=== PATIENT | female | born 1945 | race Caucasian/White ===

== ENCOUNTER 2017-12-25 18:27 | Inpatient (IN) | payer MEDICARE, OTHER ==
[~2017-12-25] VITALS: Ht 152.4 cm; Wt 46.9 kg
[~2017-12-25 18:27] MED LIST: BENICAR20 MG PO; CALCIUM 500 +1 EACH PO; DESLORATADINE5 MG PO; GENTAMICIN TOP; HYDROCHLOROTHIA25 MG PO; KENALOG-1010 MG/1 ML; NABUMETONE500 MG PO; NEXIUM PO; PREDNISONE20 MG PO; SIMVASTATIN20 MG PO; TYLENOL EXTRA500 MG PO
[2017-12-25] MEDS ORDERED: ONDANSETRON HCL INJ 2 MG/ML VIAL IV STA (19:37)
[2017-12-25] MEDS ORDERED: SODIUM CHLORIDE 0.9% 1000ML 1,000 ML IV SCH (19:45)
--- NOTE | 2017-12-25 20:05 | Diagnostic Imaging Report ---
Portable chest x-ray CPT code 69339 INDICATION: C. Difficile infection COMPARISON: Chest x-ray 08/01/2015 FINDINGS: Frontal view of the chest obtained at 1949 hours. The cardiac silhouette is normal. Aortic ectasia and calcifications of the aortic arch are stable. No hilar lymphadenopathy. The pulmonary vascular markings are normal. The lungs demonstrate no mass or infiltrate. The costophrenic angles are sharp. There is no pneumothorax. The osseous structures are intact. No focal osseous lesions. IMPRESSION: No acute cardiopulmonary process. Signed by: Dr. Melissa Montoya MD on 12/25/2017 8:01 PM
[2017-12-25 20:18] LABS: BASOPHILS # (AUTO) 0.1 (0.0-0.1); BASOPHILS % 0.3 % (0.0-1.0); HEMATOCRIT 33.9 % (34.2-44.1); HEMOGLOBIN 11.8 g/dL (12.0-16.0); LYMPHOCYTES # (AUTO) 1.8 (1.0-3.2); LYMPHOCYTES % 5.8 % (18.0-39.1); MEAN CORPUSCULAR HGB CONC 34.8 g/dL (31-35); MEAN CORPUSCULAR VOLUME 97.7 fL (81-99); MONOCYTES # (AUTO) 1.7 (0.2-0.8); MONOCYTES % 5.3 % (4.4-11.3); NEUTROPHILS # (AUTO) 27.2 (2.1-6.9); NEUTROPHILS % 87.6 % (38.7-80.0); PLATELET COUNT 480 x10e3/uL (140-360); RED BLOOD COUNT 3.47 x10e6/uL (3.6-5.1); RED CELL DISTRIBUTION WIDTH 12.4 % (11.7-14.4)
[2017-12-25] MEDS: VANCOMYCIN 250MG/5ML ORAL SOLN PO SCH (20:23)
[2017-12-25] MEDS: METRONIDAZOLE 500MG/NS 100ML 100 ML IV SCH (20:23)
[2017-12-25 20:38] LABS: ALBUMIN 3.4 g/dL (3.5-5.0); ALBUMIN/GLOBULIN RATIO 0.9 (0.8-2.0); ANION GAP 18.3 mmol/L (8-16); CALCIUM 9.7 mg/dL (8.4-10.2); MAGNESIUM 1.2 MG/DL (1.3-2.1); POTASSIUM 3.3 mmol/L (3.5-5.1)
[2017-12-25] MEDS ORDERED: SODIUM CHLORIDE 0.9% 1000ML 1,000 ML IV ONE (20:45)
[2017-12-25] MEDS ORDERED: MAGNESIUM SULF 1GRAM/DEXTROSE 100 ML IV ONE (21:00)
[2017-12-25 21:06] LABS: LYMPHOCYTES % (MANUAL) 5 % (19-48); MONOCYTES % (MANUAL) 4 % (3.4-9.0); NEUTROPHILS % (MANUAL) 91 % (40-74)
[2017-12-25 21:07] LABS: HYPOCHROMASIA SLIGHT; PLATELET ESTIMATE SLIGHTLY INCREASED; PLATELET MORPHOLOGY COMMENT NORMAL; RBC MORPHOLOGY COMMENT NORMAL
[2017-12-25] MEDS ORDERED: ONDANSETRON HCL INJ 2 MG/ML VIAL IV PRN (21:15)
--- OUTSIDE RECORDS SUMMARY | 2017-12-25 21:27 | XMS REPORT ---
Author Author [facility] Address Unknown Phone Unavailable Care Team Providers Care Pegger Dobby Looms Name Role Phone NIKI GELLER Unavailable Unavailable Problems This patient has no known problems. Allergies, Adverse Reactions, Alerts This patient has no known allergies or adverse reactions. Medications This patient has no known medications. Results Test Description Test Time Test Comments Text Results Atomic Results Result Comments CHEST SINGLE (PORTABLE) [place] [address] Patient Name: TEDDY JEFFERSON MR #: [id number] : 1945 Age/Sex: 72/F Req #: [id number] Adm Physician: Ordered by: MAZIN FUENTES MD Report #: [id number] Location: ER Room/Bed: ___ Procedure: [id number] DX/CHEST SINGLE (PORTABLE) Exam Date: 12/25/17 Exam Time: 1939 REPORT STATUS: Signed Portable chest x-ray CPT code 01949 INDICATION: C. Difficile infection COMPARISON: Chest x-ray 08/01/2015 FINDINGS: Frontal view of the chest obtained at 1949 hours. The cardiac silhouette is normal. Aortic ectasia and calcifications of the aortic arch are stable. No hilar lymphadenopathy. The pulmonary vascular markings are normal. The lungs demonstrate no mass or infiltrate. The costophrenic angles are sharp. There is no pneumothorax. The osseous structures are intact. No focal osseous lesions. IMPRESSION: No acute cardiopulmonary process. Signed by : Dr. Areli Montoya MD on 12/25/2017 8:01 PM Dictated By: ARELI MONTOYA MD 00 Transcribed By: NAT on 12/25/172000 COPY TO: MAZIN FUENTES MD
[2017-12-25 22:00] VITALS: BP 129/66
[2017-12-26] VITALS (7 sets, daily range): BP systolic 105–142; BP diastolic 52–84
[2017-12-26] MEDS: VANCOMYCIN 250MG/5ML ORAL SOLN PO SCH ×4 (00:05→17:56)
[2017-12-26] MEDS: METRONIDAZOLE 500MG/NS 100ML 100 ML IV SCH ×4 (00:05→17:56)
[2017-12-26] MEDS: KCL 20MEQ/.9 SOD CHL 1,000 ML IV SCH ×4 (00:05→21:44)
[2017-12-26] MEDS ORDERED: ACETAMINOPHEN 325 MG TAB PO PRN (06:00)
[2017-12-26 06:30] LABS: BILIRUBIN,URINE 1+ (NEGATIVE); CLARITY,URINE CLOUDY (CLEAR); COLOR,URINE AMBER (YELLOW); KETONES,URINE 1+ (NEGATIVE); LEUKOCYTE ESTERASE ,URINE NEGATIVE (NEGATIVE); NITRITE,URINE NEGATIVE (NEGATIVE); PROTEIN,URINE DIPSTICK TRACE (NEGATIVE); URINE UROBILINOGEN 0.2 mg/dL (0.2 - 1)
[2017-12-26 06:32] LABS: BACTERIA,URINE FEW /HPF; EPITHELIAL CELLS,URINE MODERATE /LPF; RBC,URINE 0-5 /HPF (0-5); WBC,URINE (MAN) 0-5 /HPF (0-5)
[2017-12-26 07:15] LABS: BASOPHILS # (AUTO) 0.1 (0.0-0.1); BASOPHILS % 0.3 % (0.0-1.0); HEMATOCRIT 30.8 % (34.2-44.1); HEMOGLOBIN 10.8 g/dL (12.0-16.0); LYMPHOCYTES # (AUTO) 1.6 (1.0-3.2); LYMPHOCYTES % 7.5 % (18.0-39.1); MEAN CORPUSCULAR HEMOGLOBIN 34.8 pg (28-32); MEAN CORPUSCULAR HGB CONC 35.1 g/dL (31-35); MEAN CORPUSCULAR VOLUME 99.4 fL (81-99); MONOCYTES # (AUTO) 1.3 (0.2-0.8); MONOCYTES % 6.2 % (4.4-11.3); NEUTROPHILS # (AUTO) 17.7 (2.1-6.9); NEUTROPHILS % 85.2 % (38.7-80.0); PLATELET COUNT 356 x10e3/uL (140-360); RED CELL DISTRIBUTION WIDTH 12.4 % (11.7-14.4)
[2017-12-26 08:02] LABS: ALBUMIN 2.7 g/dL (3.5-5.0); ALBUMIN/GLOBULIN RATIO 0.8 (0.8-2.0); ALKALINE PHOSPHATASE 75 IU/L (40-150); ANION GAP 12.6 mmol/L (8-16); BLOOD UREA NITROGEN 20 mg/dL (7-26); BUN/CREATININE RATIO 31 (6-25); CALCIUM 8.7 mg/dL (8.4-10.2); CARBON DIOXIDE 23 mmol/L (22-29); CHLORIDE 101 mmol/L (98-107); CREATININE, SERUM 0.64 mg/dL (0.57-1.11); EST GLOMERULAR FILTRATION RATE > 60 ML/MIN (60-); GLUCOSE 82 mg/dL (74-118); MAGNESIUM 1.4 MG/DL (1.3-2.1); SODIUM 134 mmol/L (136-145)
[2017-12-26 08:18] LABS: ALANINE AMINOTRANSFERASE < 6 IU/L (0-55)
[2017-12-26 08:19] LABS: POTASSIUM 2.6 mmol/L (3.5-5.1)
[2017-12-26] MEDS ORDERED: POTASSIUM CHLORIDE 20MEQ/100ML 200 ML IV ONE (08:30)
[2017-12-26] MEDS: POTASSIUM CHLORIDE 20MEQ/100ML 100 ML IV SCH ×2 (09:00→11:00)
[2017-12-26] MEDS ORDERED: SODIUM CHLORIDE 0.9% 1000ML 1,000 ML IV ONE (11:30)
[2017-12-26] MEDS: ACETAMINOPHEN 325 MG TAB PO SCH ×2 (13:48→21:44)
[2017-12-27] MEDS: VANCOMYCIN 250MG/5ML ORAL SOLN PO SCH ×5 (00:47→23:55)
[2017-12-27] MEDS: METRONIDAZOLE 500MG/NS 100ML 100 ML IV SCH ×5 (00:47→23:55)
--- NOTE | 2017-12-27 01:26 | Consultation ---
DATE OF CONSULTATION: December 26, 2017 REASON FOR CONSULTATION: C. diff. HISTORY OF PRESENT ILLNESS: This patient who apparently was recently in the hospital, was discharged home. She was doing well. She is coming with nausea and vomiting, abdominal discomfort as well as diarrhea. The patient was admitted. The patient came to the emergency room and stools for C. diff were sent, came back positive. Infectious disease was consulted. Patient started on oral vancomycin and metronidazole, and she is telling me she is feeling better now, her diarrhea has subsided. PAST MEDICAL HISTORY: This patient has history of hypertension, GERD, arthritis. PAST SURGICAL HISTORY: Appendectomy, cholecystectomy, hysterectomy. ALLERGIES: PENICILLIN AND SULFA DRUGS. SOCIAL HISTORY: There is no smoking, drug abuse, alcohol abuse. FAMILY HISTORY: Unremarkable. REVIEW OF SYSTEMS, FOURTEEN-POINT: HEENT: There is no headache, visual changes or hearing changes. GI: There is no nausea, currently no vomiting, no diarrhea, but when she first came she had nausea and vomiting and diarrhea. : Negative. There is no evidence of urinary frequency. SKIN: There is no rash. JOINTS: No swelling or erythema. CURRENT MEDICATION: List reviewed. LABORATORY DATA: Reviewed. Patient apparently had C. diff 3 weeks ago. PHYSICAL EXAMINATION: GENERAL: She is currently alert and oriented, does not seem to be in acute distress. VITALS: Stable, currently afebrile. HEENT: She does not appear icteric. NECK: Supple. CHEST: Clear. HEART: S1 and S2. No S3, S4, murmur. ABDOMEN: Soft. IMPRESSION: Recurrent Clostridium difficile colitis, seems to be getting better. Continue with vancomycin. Continue with metronidazole. Probably will treat her longer time at present time. Agree with intravenous fluid and supportive care. Further recommendations to follow. Thank you. Job#: [id number]
[2017-12-27 01:35] VITALS: BP 113/40
[2017-12-27] MEDS: KCL 20MEQ/.9 SOD CHL 1,000 ML IV SCH ×3 (06:11→21:58)
[2017-12-27] MEDS: ACETAMINOPHEN 325 MG TAB PO SCH ×3 (06:12→21:58)
[2017-12-27 06:26] VITALS: BP 141/20
[2017-12-27 07:47] LABS: BASOPHILS # (AUTO) 0.1 (0.0-0.1); BASOPHILS % 0.6 % (0.0-1.0); EOSINOPHILS # (AUTO) 0.1 (0.0-0.4); EOSINOPHILS % 0.4 % (0.0-6.0); HEMATOCRIT 32.3 % (34.2-44.1); HEMOGLOBIN 10.9 g/dL (12.0-16.0); LYMPHOCYTES # (AUTO) 1.7 (1.0-3.2); LYMPHOCYTES % 11.5 % (18.0-39.1); MEAN CORPUSCULAR HEMOGLOBIN 33.9 pg (28-32); MEAN CORPUSCULAR HGB CONC 33.7 g/dL (31-35); MEAN CORPUSCULAR VOLUME 100.3 fL (81-99); MONOCYTES # (AUTO) 0.8 (0.2-0.8); MONOCYTES % 5.7 % (4.4-11.3); NEUTROPHILS # (AUTO) 11.7 (2.1-6.9); PLATELET COUNT 351 x10e3/uL (140-360); RED BLOOD COUNT 3.22 x10e6/uL (3.6-5.1); RED CELL DISTRIBUTION WIDTH 12.5 % (11.7-14.4)
[2017-12-27 08:00] VITALS: BP 141/20
[2017-12-27 08:30] LABS: ANION GAP 9.4 mmol/L (8-16); BLOOD UREA NITROGEN 8 mg/dL (7-26); BUN/CREATININE RATIO 16 (6-25); CALCIUM 8.6 mg/dL (8.4-10.2); CARBON DIOXIDE 22 mmol/L (22-29); CHLORIDE 108 mmol/L (98-107); CREATININE, SERUM 0.51 mg/dL (0.57-1.11); EST GLOMERULAR FILTRATION RATE > 60 ML/MIN (60-); GLUCOSE 79 mg/dL (74-118); POTASSIUM 3.4 mmol/L (3.5-5.1); SODIUM 136 mmol/L (136-145)
[2017-12-27 12:00] VITALS: BP 170/75
[2017-12-27 16:00] VITALS: BP 149/67
[2017-12-27 20:28] VITALS: BP 177/71
[2017-12-27] MEDS: OLMESARTAN 20 MG TAB PO SCH (22:55)
[2017-12-28 00:54] VITALS: BP 165/83
[2017-12-28] MEDS: METRONIDAZOLE 500MG/NS 100ML 100 ML IV SCH ×4 (05:43→23:06)
[2017-12-28] MEDS: KCL 20MEQ/.9 SOD CHL 1,000 ML IV SCH ×3 (05:43→21:15)
[2017-12-28] MEDS: VANCOMYCIN 250MG/5ML ORAL SOLN PO SCH ×4 (05:43→23:06)
[2017-12-28] MEDS: ACETAMINOPHEN 325 MG TAB PO SCH ×3 (05:43→22:00)
[2017-12-28 06:06] VITALS: BP 158/77
[2017-12-28] MEDS ORDERED: DIPHENOXYLATE/ATROPINE TAB PO ONE (06:30)
[2017-12-28] MEDS ORDERED: NYSTATIN 100,000 UNITS/GM CRM 30GM TUBE TOP SCH (06:30)
[2017-12-28] MEDS ORDERED: DIPHENOXYLATE/ATROPINE TAB PO PRN (06:30)
[2017-12-28 07:22] LABS: BASOPHILS # (AUTO) 0.1 (0.0-0.1); BASOPHILS % 0.6 % (0.0-1.0); EOSINOPHILS # (AUTO) 0.1 (0.0-0.4); EOSINOPHILS % 0.5 % (0.0-6.0); HEMATOCRIT 32.6 % (34.2-44.1); HEMOGLOBIN 10.9 g/dL (12.0-16.0); LYMPHOCYTES # (AUTO) 1.6 (1.0-3.2); LYMPHOCYTES % 12.9 % (18.0-39.1); MEAN CORPUSCULAR HEMOGLOBIN 33.6 pg (28-32); MEAN CORPUSCULAR HGB CONC 33.4 g/dL (31-35); MEAN CORPUSCULAR VOLUME 100.6 fL (81-99); MONOCYTES # (AUTO) 0.8 (0.2-0.8); MONOCYTES % 6.5 % (4.4-11.3); NEUTROPHILS # (AUTO) 9.9 (2.1-6.9); NEUTROPHILS % 78.1 % (38.7-80.0); PLATELET COUNT 369 x10e3/uL (140-360); RED BLOOD COUNT 3.24 x10e6/uL (3.6-5.1); RED CELL DISTRIBUTION WIDTH 12.5 % (11.7-14.4)
[2017-12-28 08:00] VITALS: BP 169/79
[2017-12-28 08:00] LABS: ANION GAP 9.6 mmol/L (8-16); BLOOD UREA NITROGEN < 5 mg/dL (7-26); CALCIUM 8.4 mg/dL (8.4-10.2); CARBON DIOXIDE 23 mmol/L (22-29); CHLORIDE 107 mmol/L (98-107); EST GLOMERULAR FILTRATION RATE > 60 ML/MIN (60-); GLUCOSE 81 mg/dL (74-118); POTASSIUM 3.6 mmol/L (3.5-5.1); SODIUM 136 mmol/L (136-145)
[2017-12-28 08:02] LABS: BUN/CREATININE RATIO 10 (6-25)
[2017-12-28] MEDS: OLMESARTAN 20 MG TAB PO SCH (09:21)
[2017-12-28 09:38] VITALS: BP 169/79
[2017-12-28] MEDS: PANTOPRAZOLE SOD 40 MG TABEC PO SCH (15:00)
[2017-12-28 16:00] VITALS: BP 174/76
[2017-12-28 20:24] VITALS: BP 158/73
[2017-12-29] VITALS (7 sets, daily range): BP systolic 131–183; BP diastolic 60–94
[2017-12-29] MEDS: ACETAMINOPHEN 325 MG TAB PO SCH ×3 (05:34→22:36)
[2017-12-29] MEDS: METRONIDAZOLE 500MG/NS 100ML 100 ML IV SCH ×4 (05:34→22:37)
[2017-12-29] MEDS: VANCOMYCIN 250MG/5ML ORAL SOLN PO SCH ×3 (05:35→17:00)
[2017-12-29 06:13] LABS: BASOPHILS # (AUTO) 0.1 (0.0-0.1); BASOPHILS % 0.6 % (0.0-1.0); EOSINOPHILS # (AUTO) 0.1 (0.0-0.4); EOSINOPHILS % 0.7 % (0.0-6.0); HEMATOCRIT 31.3 % (34.2-44.1); HEMOGLOBIN 10.4 g/dL (12.0-16.0); LYMPHOCYTES # (AUTO) 2.3 (1.0-3.2); LYMPHOCYTES % 23.2 % (18.0-39.1); MEAN CORPUSCULAR HEMOGLOBIN 33.3 pg (28-32); MEAN CORPUSCULAR HGB CONC 33.2 g/dL (31-35); MEAN CORPUSCULAR VOLUME 100.3 fL (81-99); MONOCYTES # (AUTO) 0.9 (0.2-0.8); MONOCYTES % 8.8 % (4.4-11.3); NEUTROPHILS # (AUTO) 6.6 (2.1-6.9); NEUTROPHILS % 65.1 % (38.7-80.0); PLATELET COUNT 354 x10e3/uL (140-360); RED BLOOD COUNT 3.12 x10e6/uL (3.6-5.1); RED CELL DISTRIBUTION WIDTH 12.7 % (11.7-14.4)
[2017-12-29 06:36] LABS: ALBUMIN 2.5 g/dL (3.5-5.0); ALBUMIN/GLOBULIN RATIO 0.9 (0.8-2.0); ALKALINE PHOSPHATASE 70 IU/L (40-150); ANION GAP 9.7 mmol/L (8-16); BLOOD UREA NITROGEN 5 mg/dL (7-26); BUN/CREATININE RATIO 10 (6-25); CARBON DIOXIDE 25 mmol/L (22-29); CHLORIDE 109 mmol/L (98-107); EST GLOMERULAR FILTRATION RATE > 60 ML/MIN (60-); GLUCOSE 86 mg/dL (74-118); POTASSIUM 3.7 mmol/L (3.5-5.1); SODIUM 140 mmol/L (136-145)
[2017-12-29 07:02] LABS: ALANINE AMINOTRANSFERASE < 6 IU/L (0-55)
[2017-12-29] MEDS ORDERED: MAGNESIUM SULFATE 2GM/50ML 50 ML IV ONE ×2 (08:30→14:00)
[2017-12-29] MEDS: METOPROLOL TARTRATE 25 MG TAB PO SCH ×2 (09:09→16:29)
[2017-12-29] MEDS: PANTOPRAZOLE SOD 40 MG TABEC PO SCH (09:09)
[2017-12-29] MEDS: KCL 20MEQ/.9 SOD CHL 1,000 ML IV SCH ×3 (09:09→22:37)
[2017-12-29] MEDS: OLMESARTAN 20 MG TAB PO SCH (09:09)
[2017-12-30] VITALS (9 sets, daily range): BP systolic 138–169; BP diastolic 63–76
[2017-12-30] MEDS: VANCOMYCIN 250MG/5ML ORAL SOLN PO SCH ×5 (00:14→23:20)
[2017-12-30] MEDS: KCL 20MEQ/.9 SOD CHL 1,000 ML IV SCH ×3 (05:15→21:00)
[2017-12-30] MEDS: ACETAMINOPHEN 325 MG TAB PO SCH ×3 (06:02→23:20)
[2017-12-30] MEDS: METRONIDAZOLE 500MG/NS 100ML 100 ML IV SCH ×5 (06:02→23:20)
[2017-12-30 06:55] LABS: BASOPHILS % 0.4 % (0.0-1.0); EOSINOPHILS # (AUTO) 0.1 (0.0-0.4); EOSINOPHILS % 1.4 % (0.0-6.0); HEMATOCRIT 31.8 % (34.2-44.1); HEMOGLOBIN 10.6 g/dL (12.0-16.0); LYMPHOCYTES % 19.5 % (18.0-39.1); MEAN CORPUSCULAR HEMOGLOBIN 33.9 pg (28-32); MEAN CORPUSCULAR HGB CONC 33.3 g/dL (31-35); MEAN CORPUSCULAR VOLUME 101.6 fL (81-99); MONOCYTES # (AUTO) 0.9 (0.2-0.8); MONOCYTES % 8.6 % (4.4-11.3); NEUTROPHILS # (AUTO) 7.1 (2.1-6.9); NEUTROPHILS % 69.1 % (38.7-80.0); PLATELET COUNT 384 x10e3/uL (140-360); RED BLOOD COUNT 3.13 x10e6/uL (3.6-5.1); RED CELL DISTRIBUTION WIDTH 12.9 % (11.7-14.4)
[2017-12-30] MEDS: PANTOPRAZOLE SOD 40 MG TABEC PO SCH (07:30)
[2017-12-30 07:32] LABS: ALANINE AMINOTRANSFERASE 6 IU/L (0-55); ALBUMIN 2.7 g/dL (3.5-5.0); ALBUMIN/GLOBULIN RATIO 0.9 (0.8-2.0); ALKALINE PHOSPHATASE 70 IU/L (40-150); ANION GAP 10.5 mmol/L (8-16); BLOOD UREA NITROGEN 6 mg/dL (7-26); BUN/CREATININE RATIO 12 (6-25); CALCIUM 8.3 mg/dL (8.4-10.2); CARBON DIOXIDE 28 mmol/L (22-29); CHLORIDE 105 mmol/L (98-107); CREATININE, SERUM 0.52 mg/dL (0.57-1.11); EST GLOMERULAR FILTRATION RATE > 60 ML/MIN (60-); GLUCOSE 83 mg/dL (74-118); POTASSIUM 3.5 mmol/L (3.5-5.1); SODIUM 140 mmol/L (136-145)
[2017-12-30] MEDS: METOPROLOL TARTRATE 25 MG TAB PO SCH ×2 (08:53→17:12)
[2017-12-30] MEDS: LACTOBACILLUS ACIDOPHILUS CAPSULE PO SCH (08:53)
[2017-12-30] MEDS: OLMESARTAN 20 MG TAB PO SCH (08:53)
[2017-12-31] VITALS (8 sets, daily range): BP systolic 119–186; BP diastolic 66–79
[2017-12-31] MEDS ORDERED: MAGNESIUM SULFATE 2GM/50ML 50 ML IV ONE (05:00)
[2017-12-31] MEDS: METRONIDAZOLE 500MG/NS 100ML 100 ML IV SCH ×4 (06:00→23:50)
[2017-12-31] MEDS: VANCOMYCIN 250MG/5ML ORAL SOLN PO SCH ×4 (06:00→23:50)
[2017-12-31] MEDS: ACETAMINOPHEN 325 MG TAB PO SCH ×3 (06:00→21:54)
[2017-12-31 06:20] LABS: BASOPHILS # (AUTO) 0.1 (0.0-0.1); BASOPHILS % 0.6 % (0.0-1.0); EOSINOPHILS # (AUTO) 0.2 (0.0-0.4); EOSINOPHILS % 1.6 % (0.0-6.0); HEMATOCRIT 28.9 % (34.2-44.1); HEMOGLOBIN 9.7 g/dL (12.0-16.0); LYMPHOCYTES # (AUTO) 2.3 (1.0-3.2); LYMPHOCYTES % 22.1 % (18.0-39.1); MEAN CORPUSCULAR HEMOGLOBIN 33.8 pg (28-32); MEAN CORPUSCULAR HGB CONC 33.6 g/dL (31-35); MEAN CORPUSCULAR VOLUME 100.7 fL (81-99); MONOCYTES # (AUTO) 0.9 (0.2-0.8); NEUTROPHILS # (AUTO) 6.8 (2.1-6.9); NEUTROPHILS % 65.9 % (38.7-80.0); PLATELET COUNT 309 x10e3/uL (140-360); RED BLOOD COUNT 2.87 x10e6/uL (3.6-5.1); RED CELL DISTRIBUTION WIDTH 12.9 % (11.7-14.4)
[2017-12-31 06:48] LABS: ALBUMIN 2.6 g/dL (3.5-5.0); ALBUMIN/GLOBULIN RATIO 1.1 (0.8-2.0); ALKALINE PHOSPHATASE 64 IU/L (40-150); ANION GAP 9.8 mmol/L (8-16); BLOOD UREA NITROGEN 5 mg/dL (7-26); BUN/CREATININE RATIO 11 (6-25); CALCIUM 8.4 mg/dL (8.4-10.2); CARBON DIOXIDE 28 mmol/L (22-29); CHLORIDE 107 mmol/L (98-107); CREATININE, SERUM 0.47 mg/dL (0.57-1.11); EST GLOMERULAR FILTRATION RATE > 60 ML/MIN (60-); GLUCOSE 86 mg/dL (74-118); POTASSIUM 3.8 mmol/L (3.5-5.1); SODIUM 141 mmol/L (136-145)
[2017-12-31 06:49] LABS: ALANINE AMINOTRANSFERASE < 6 IU/L (0-55)
[2017-12-31] MEDS: PANTOPRAZOLE SOD 40 MG TABEC PO SCH (07:39)
[2017-12-31] MEDS: LACTOBACILLUS ACIDOPHILUS CAPSULE PO SCH (08:36)
[2017-12-31] MEDS: OLMESARTAN 20 MG TAB PO SCH (08:36)
[2017-12-31] MEDS: METOPROLOL TARTRATE 25 MG TAB PO SCH ×2 (08:36→17:25)
[2017-12-31] MEDS: KCL 20MEQ/.9 SOD CHL 1,000 ML IV SCH ×2 (13:15→21:54)
[2018-01-01 00:35] VITALS: BP 157/75
[2018-01-01] MEDS ORDERED: MAGNESIUM SULFATE 2GM/50ML 50 ML IV ONE (05:00)
[2018-01-01] MEDS: METRONIDAZOLE 500MG/NS 100ML 100 ML IV SCH (05:52)
[2018-01-01] MEDS: VANCOMYCIN 250MG/5ML ORAL SOLN PO SCH (05:52)
[2018-01-01] MEDS: ACETAMINOPHEN 325 MG TAB PO SCH (05:52)
[2018-01-01 06:08] VITALS: BP 167/68
[2018-01-01 06:30] LABS: ANION GAP 11.8 mmol/L (8-16); BLOOD UREA NITROGEN < 5 mg/dL (7-26); CALCIUM 8.8 mg/dL (8.4-10.2); CARBON DIOXIDE 28 mmol/L (22-29); CHLORIDE 103 mmol/L (98-107); CREATININE, SERUM 0.49 mg/dL (0.57-1.11); EST GLOMERULAR FILTRATION RATE > 60 ML/MIN (60-); GLUCOSE 91 mg/dL (74-118); POTASSIUM 3.8 mmol/L (3.5-5.1); SODIUM 139 mmol/L (136-145)
[2018-01-01 06:34] LABS: BUN/CREATININE RATIO 10 (6-25)
[2018-01-01] MEDS: PANTOPRAZOLE SOD 40 MG TABEC PO SCH (08:54)
[2018-01-01] MEDS ORDERED: LORATADINE 10 MG TAB PO SCH (09:00)
[2018-01-01] MEDS: LACTOBACILLUS ACIDOPHILUS CAPSULE PO SCH (09:07)
[2018-01-01] MEDS: OLMESARTAN 20 MG TAB PO SCH (09:07)
[2018-01-01] MEDS: METOPROLOL TARTRATE 25 MG TAB PO SCH (09:07)
[2018-01-01 09:40] VITALS: BP 163/71
== END 2018-01-01 11:15 | disposition home or self-care (01) | DRG 872 ==
LOC: ER 18:42 → ERHOLD 21:02 → MED/SURG2 21:44
PROVIDERS: ADMIT Internal Medicine; ATTEND Internal Medicine
DX: A41.4 Sepsis due to anaerobes (principal); D64.9 Anemia, unspecified; E86.0 Dehydration; A04.71 Enterocolitis due to Clostridium difficile, recurrent; K21.9 Gastro-esophageal reflux disease without esophagitis; I10 Essential (primary) hypertension; E87.6 Hypokalemia; D72.829 Elevated white blood cell count, unspecified; M19.90 Unspecified osteoarthritis, unspecified site; R53.81 Other malaise
CPT/HCPCS: 36415; 71045; 80048; 80053; 81001; 82150; 83690; 83735; 85025; 87493; 93005; 97139; 99285; J2405; J3475; J3480; J7030

== ENCOUNTER 2019-02-07 10:51 | Inpatient (IN) | payer MEDICARE, OTHER ==
[~2019-02-07] VITALS: Ht 153 cm; Wt 50.6 kg
[2019-02-07] MEDS ORDERED: SODIUM CHLORIDE 0.9% 1000ML 1,000 ML IV STA (11:37)
[2019-02-07 12:05] LABS: BASOPHILS # (AUTO) 0.1 (0.0-0.1); BASOPHILS % 0.3 % (0.0-1.0); EOSINOPHILS % 0.2 % (0.0-6.0); HEMATOCRIT 33.6 % (34.2-44.1); HEMOGLOBIN 11.6 g/dL (12.0-16.0); LYMPHOCYTES # (AUTO) 1.7 (1.0-3.2); LYMPHOCYTES % 10.6 % (18.0-39.1); MEAN CORPUSCULAR HEMOGLOBIN 32.9 pg (28-32); MEAN CORPUSCULAR HGB CONC 34.5 g/dL (31-35); MEAN CORPUSCULAR VOLUME 95.2 fL (81-99); MONOCYTES # (AUTO) 1.1 (0.2-0.8); MONOCYTES % 6.7 % (4.4-11.3); NEUTROPHILS # (AUTO) 13.4 (2.1-6.9); NEUTROPHILS % 81.7 % (38.7-80.0); PLATELET COUNT 532 x10e3/uL (140-360); RED BLOOD COUNT 3.53 x10e6/uL (3.6-5.1); RED CELL DISTRIBUTION WIDTH 13.1 % (11.7-14.4)
--- NOTE | 2019-02-07 12:08 | NUR ---
PER MD STRAIGHT CATH PT; PT STRAIGHT CATH'D WITH NO ADVERSE REACTIONS PT URINE OUTPUT APPROX 50 CC
[2019-02-07 12:14] LABS: ALANINE AMINOTRANSFERASE 7 IU/L (0-55); ALBUMIN 3.3 g/dL (3.5-5.0); ALBUMIN/GLOBULIN RATIO 0.8 (0.8-2.0); ALKALINE PHOSPHATASE 94 IU/L (40-150); ANION GAP 16.6 mmol/L (8-16); BLOOD UREA NITROGEN 25 mg/dL (7-26); BUN/CREATININE RATIO 33 (6-25); CALCIUM 9.9 mg/dL (8.4-10.2); CARBON DIOXIDE 25 mmol/L (22-29); CHLORIDE 89 mmol/L (98-107); CREATININE, SERUM 0.76 mg/dL (0.57-1.11); EST GLOMERULAR FILTRATION RATE > 60 ML/MIN (60-); GLUCOSE 102 mg/dL (74-118); POTASSIUM 3.6 mmol/L (3.5-5.1); SODIUM 127 mmol/L (136-145)
[2019-02-07 12:17] LABS: INR 0.88; PROTHROMBIN TIME 12.4 seconds (11.9-14.5)
[2019-02-07 12:18] LABS: PARTIAL THROMBOPLASTIN TIME 38.7 seconds (23.8-35.5)
[2019-02-07 12:24] LABS: CLARITY,URINE CLEAR (CLEAR); COLOR,URINE YELLOW (YELLOW)
[2019-02-07 12:25] LABS: BILIRUBIN,URINE NEGATIVE (NEGATIVE); KETONES,URINE NEGATIVE (NEGATIVE); LEUKOCYTE ESTERASE ,URINE NEGATIVE (NEGATIVE); NITRITE,URINE NEGATIVE (NEGATIVE); PROTEIN,URINE DIPSTICK NEGATIVE (NEGATIVE); URINE UROBILINOGEN 0.2 mg/dL (0.2 - 1)
--- NOTE | 2019-02-07 12:28 | Diagnostic Imaging Report ---
EXAMINATION: CHEST SINGLE (PORTABLE) INDICATION: Pre-op. COMPARISON: Chest radiograph 12/25/2018. FINDINGS: TUBES and LINES: None. LUNGS: Lungs are well inflated. There is no evidence of pneumonia or pulmonary edema. PLEURA: No pleural effusion or pneumothorax. Likely right-sided skinfold. HEART AND MEDIASTINUM: The cardiomediastinal silhouette is unremarkable. There are atherosclerotic calcifications within the aorta. BONES AND SOFT TISSUES: No acute osseous abnormality. UPPER ABDOMEN: No free air under the diaphragm. IMPRESSION: No acute radiographic abnormality. Signed by: Dr. Gris Haider MD on 02/07/2019 12:24 PM
[2019-02-07 12:43] LABS: WBC,URINE (MAN) 0-5 /HPF (0-5)
[2019-02-07 12:44] LABS: BACTERIA,URINE MODERATE /HPF; EPITHELIAL CELLS,URINE FEW /LPF; TRANSITIONAL EPI CELLS,URINE RARE
[2019-02-07] MEDS ORDERED: ONDANSETRON HCL INJ 2MG/ML 2ML 2 MG/ML VIAL IV PRN (14:45)
[2019-02-07] MEDS ORDERED: MORPHINE SULFATE 2 MG/ML SYR 1ML IV PRN (14:45)
[2019-02-07] MEDS ORDERED: MORPHINE SULFATE INJ 4 MG/ML INJ 1ML IV PRN (15:15)
[2019-02-07] MEDS: VANCOMYCIN 1GM/NS 250 ML 250 ML IV SCH (15:26)
[2019-02-07] MEDS: SODIUM CHLORIDE 0.9% 1000ML 1,000 ML IV SCH (15:26)
--- NOTE | 2019-02-07 15:50 | NUR ---
This 73 y/o female arrived to the unit via stretcher for services of Dr. Palm and Autumn with comp of vascular ulcer to the left ankle area. The dressing eas lifted to observe the ulcer and noted quarter sized ulcer stage 3 and a stage 2 to the sacrum. The pt.'s son arrived and requested that the pt. not be given any pain med other than extra strength tylenol. The pt. has an iv in the right ac with vancomycin and iv fluids infusing. The skin is sallow in appearance.
[2019-02-07 16:29] VITALS: BP 162/88
[2019-02-07 16:30] VITALS: BP 162/88
[2019-02-07] MEDS: CEFEPIME 1GM/NS 0.9% 50 ML 50 ML IV SCH (16:30)
--- NOTE | 2019-02-07 16:30 | NUR ---
Dr. Palm notified of the pt's placement and new order received.
[2019-02-07] MEDS ORDERED: ACETAMINOPHEN 325 MG TAB PO PRN (16:45)
[2019-02-07] MEDS ORDERED: PIPER-TAZ 3.375 GM 50 ML IV SCH (19:00)
[2019-02-07 19:43] VITALS: BP 176/77
[2019-02-07] MEDS: NON-FORMULARY MEDICATION (Nabumetone 500 MG) PO SCH (21:00)
[2019-02-07] MEDS: SIMVASTATIN 20 MG TAB PO SCH (22:45)
[2019-02-07 23:50] VITALS: BP 192/84
[2019-02-08] VITALS (7 sets, daily range): BP systolic 131–200; BP diastolic 60–89
[2019-02-08] MEDS: ACETAMINOPHEN 325 MG TAB PO PRN ×3 (03:06→20:37)
[2019-02-08] MEDS: VANCOMYCIN 1GM/NS 250 ML 250 ML IV SCH ×2 (03:39→15:07)
--- NOTE | 2019-02-08 03:40 | NUR ---
IV to right AC no longer patent, IV removed, new 20G IV started to left forearm with good blood return
--- NOTE | 2019-02-08 04:41 | NUR ---
BP 195/89 notified
[2019-02-08] MEDS: CEFEPIME 1GM/NS 0.9% 50 ML 50 ML IV SCH ×2 (05:24→16:41)
[2019-02-08] MEDS: CLONIDINE HCL 0.1 MG TAB PO PRN ×2 (05:24→19:38)
[2019-02-08 05:33] LABS: BASOPHILS # (AUTO) 0.1 (0.0-0.1); BASOPHILS % 0.6 % (0.0-1.0); EOSINOPHILS # (AUTO) 0.1 (0.0-0.4); EOSINOPHILS % 0.9 % (0.0-6.0); HEMATOCRIT 30.3 % (34.2-44.1); HEMOGLOBIN 10.2 g/dL (12.0-16.0); LYMPHOCYTES # (AUTO) 2.1 (1.0-3.2); LYMPHOCYTES % 15.9 % (18.0-39.1); MEAN CORPUSCULAR HEMOGLOBIN 32.7 pg (28-32); MEAN CORPUSCULAR HGB CONC 33.7 g/dL (31-35); MEAN CORPUSCULAR VOLUME 97.1 fL (81-99); MONOCYTES # (AUTO) 0.9 (0.2-0.8); NEUTROPHILS # (AUTO) 10.1 (2.1-6.9); NEUTROPHILS % 74.9 % (38.7-80.0); PLATELET COUNT 419 x10e3/uL (140-360); RED BLOOD COUNT 3.12 x10e6/uL (3.6-5.1); RED CELL DISTRIBUTION WIDTH 13.1 % (11.7-14.4)
[2019-02-08 06:01] LABS: BLOOD UREA NITROGEN 14 mg/dL (7-26); BUN/CREATININE RATIO 26 (6-25); CALCIUM 8.6 mg/dL (8.4-10.2); CARBON DIOXIDE 27 mmol/L (22-29); CHLORIDE 97 mmol/L (98-107); CHOL/HDL RATIO 2.1 (3.0-3.6); CHOLESTEROL 103 MD/DL (0-199); CREATININE, SERUM 0.54 mg/dL (0.57-1.11); EST GLOMERULAR FILTRATION RATE > 60 ML/MIN (60-); GLUCOSE 85 mg/dL (74-118); HDL CHOLESTEROL 50 MG/DL (40-60); LDL CHOLESTEROL 34 MG/DL (60-130); SODIUM 131 mmol/L (136-145); TRIGLYCERIDES 97 MG/DL (0-149)
[2019-02-08] MEDS ORDERED: SODIUM CHLORIDE 0.9% 100 ML 100 ML ONE (06:41)
[2019-02-08] MEDS ORDERED: IOPAMIDOL 370 MG/ML 200 ML INFUS..BTL INJ ONE (06:41)
--- NOTE | 2019-02-08 08:43 | Diagnostic Imaging Report ---
EXAM: CTA OF THE ABDOMINAL AORTA, PELVIC ARTERIES AND BILATERAL LOWER EXTREMITIES INDICATION: PAD COMPARISON: None TECHNIQUE: Multi-detector CT technology was employed. CTA of the abdomen, pelvis and bilateral lower extremities was performed after the administration of IV contrast. Technique modification was accomplished to maintain the lowest dose possible to the patient. IV CONTRAST: 100 mL of Isovue-370 ORAL CONTRAST: None COMPLICATIONS: None RADIATION DOSE: Total DLP: 554.79 mGy*cm Estimated effective dose: (DLP x 0.015 x size factor) mSv CTDIvol has been reviewed. It is below the limits set by the Radiation Protocol Committee (RPC). For optimization of anatomic evaluation, multiplanar reconstruction, maximum intensity projections, and advanced 3-D off-line postprocessing were performed on a dedicated stand-alone workstation under the direct supervision of the interpreting physician. FINDINGS: Potential study limitations: None. VASCULAR WITH ADVANCED 3-D OFF-LINE POSTPROCESSING: The abdominal aorta reveals scattered atherosclerotic plaque. There is a focal soft plaque causing at least 40% stenosis of the infrarenal aorta. There is no acute aortic pathology . There is no evidence of aneurysm or dissection. The celiac axis and KHADAR are patent. The left gastric artery has a direct origin from the aorta. Short segment occlusion of the SMA is noted. Single renal arteries bilaterally. Pelvis vessels: There is a 50% stenosis of the right common iliac artery. Multiple focal stenosis of the left external iliac artery are noted. Right lower extremity: Right common femoral, profundus femoral and popliteal arteries are patent. Occlusion of the right SFA. Patent three-vessel runoff in the proximal calf. Dominant vessel at the foot is a posterior tibial artery. Left lower extremity: Right common femoral, profundus femoral and popliteal arteries are patent. Occlusion of the left SFA. Patent three-vessel runoff in the proximal calf. Dominant vessel of the foot is a posterior tibial artery. LOWER CHEST: No nodules or masses. ABDOMEN: The liver and pancreas appear normal. Gallbladder not visualized. Granulomas within the spleen. The adrenal glands appear normal. Both kidneys are normal in size, shape and density. Diffuse concentric wall thickening of the stomach is noted. There is no abnormal mass or hydronephrosis. PELVIS: There is no significant retroperitoneal adenopathy. The uterus and adnexal structures are absent. No free fluid or free air within the abdomen or pelvis. BONES: Degenerative changes of the spine. IMPRESSION: 1. Diffuse calcified atherosclerotic plaque throughout the vasculature. 2. Infrarenal abdominal aortic stenosis resulting from a soft plaque with a 40% stenosis. 3. Right common iliac artery stenosis. 4. Several short segment areas of stenosis in the left external iliac artery. 5. Both superficial femoral arteries are occluded. 6. Diffuse concentric gastric wall thickening-clinical correlation concerning any GI symptoms is suggested. Signed by: Dr. Manuel Kruger DO on 02/08/2019 8:40 AM
[2019-02-08] MEDS ORDERED: VITAMIN D3 PO SCH (09:00)
[2019-02-08] MEDS ORDERED: [UNRECOGNIZED DRUG - OTHER] PO SCH (09:00)
[2019-02-08] MEDS: NON-FORMULARY MEDICATION (Nabumetone 500 MG) PO SCH ×3 (09:00→20:25)
[2019-02-08] MEDS ORDERED: NON-FORMULARY MEDICATION ([Nexium] 40 MG) PO SCH (09:00)
[2019-02-08] MEDS ORDERED: CALCIUM CARBONATE PO SCH (09:00)
[2019-02-08] MEDS ORDERED: NON-FORMULARY MEDICATION (Desloratadine 5 MG) PO SCH (09:00)
[2019-02-08] MEDS: OYST-CAL-D 500MG TABLET PO SCH (09:43)
[2019-02-08] MEDS: HYDROCHLOROTHIAZIDE 25 MG TAB PO SCH (09:43)
[2019-02-08] MEDS: OLMESARTAN 20 MG TAB PO SCH (09:43)
[2019-02-08] MEDS: PANTOPRAZOLE SOD 40 MG TABEC PO SCH (09:43)
[2019-02-08] MEDS: LORATADINE 10 MG TAB PO SCH (09:43)
[2019-02-08] MEDS: SODIUM CHLORIDE 0.9% 1000ML 1,000 ML IV SCH (11:18)
--- NOTE | 2019-02-08 14:05 | NUR ---
Visit made by the Spiritual Care Department Pastoral Visitor, Mary Boo. PV provided pastoral presence, prayer, hospitality, and supportive listening. Pastoral Visitor informed pt/family of the scope of Obstetrics Tech Services and availability. JEWELL GREEN Paper Supervisor Spiritual Care Department O: [phone] Pager: [phone] ([phone] number calling from)
--- NOTE | 2019-02-08 16:21 | NUR ---
Nutrition Intervention Note RD Recommendation(s) for Physician: - Continue current diet - Recommend MVI with minerals once daily and 500 mg Vitamin C daily for skin integrity - Pt meets criteria for moderate protein calorie malnutrition Plan of Care: RD following, monitoring for tolerance and adequacy Nutrition reason for involvement: Nutrition Risk Trigger- stage II PU upon admit RD Assessment 02/08: 73 YOF admitted for severe PAD, seen today per admit with stage II PU at admit. Pt discussed during am rounds. Pt reports decreased appetite and intake due to "being in the hospital before and not being able to eat because of all the procedures". Pt denies N/V/C/D or difficulties chewing or swallowing. Pt reports UBW of 110# a month ago prior to hospitalizations, noted 6% wt loss in 1 month. Pt declined all supplements offered and states she's eating well now and does not need any, noted 90% intake of lunch tray. Will monitor and continue to follow. Principal Problems/Diagnoses: Severe PAD with LLE ulcers PMH: C-diff, HTN, GERD, cholecystectomy GI: LBM 02/08 Skin: sacral stage II PU Labs: 02/08 BMP WNL Meds: oscal D, protonix, abx, zocor, zofran Ht: 60 in Wt: 103 lb BMI: 19.9 kg/m2 IBW: 100 lb Malnutrition Evaluation (02/08/19) The patient meets criteria for MODERATE protein-calorie malnutrition. Energy intake: <75% of estimated energy requirements for 1 month Weight loss: >5% in 1 month (Acute) Fat loss: Mild Muscle loss: Mild Supporting Evidence: none Nutrition Prescription (Diet Order): cardiac Estimated Nutritional Needs: 7545-8363 calories/day (25-35 kcal/kg CBW) 47-70 g protein/day (1-1.5 g pro/kg CBW) Diet Adequacy: Not meeting calorie needs, Not meeting protein needs- improving Diet Education Needs Assessment: Diet education not indicated at this time. Nutrition Care Level: Mod Nutrition Diagnosis: Inadequate energy and protein intake related to current medical status, hospitalizations and procedures as reported by pt as evidenced by 6% wt loss in 1 month and not meeting needs. Goal: Patient will meet 75-100% of estimated needs by follow up Progress: N/A Interventions: Fat, mineral modified diet, Multivitamin/mineral supplement therapy, Collaboration with other providers Monitoring/Evaluation: Total energy intake, Total protein intake, Modified diet Signed: Kassy Bruno RD, JAVI, [facility]
--- NOTE | 2019-02-08 18:08 | NUR ---
WOUND CARE CONSULTATION- INITIAL EVALUATION Patient admitted with Severe PAD, LLE ISCHEMIC ULCERS. HX: tobacco use, PAD, PVD. LABS: WBC13.46 HGB10.2 HCT30.3 NEUT%74.9 GLU85 ALB3.3 WC Consulted for sacral area evaluation and BLE Ulcers. PATIENT VISIT: Ad Score [address] Sacral area presents with blanchable redness, no open ulcers. Denies pain/ discomfort to area. Patient able to turn self without assistance. Diapered, barrier creams being used. Staff reports redness visible but after 1 day area improved since admitted. Seems that area resolved. BLE presents with multiple dry eschar annular ulcerations, no distinct pattern. Left Lateral Malleolus- open ulceration full thickness with exposed periosteum. Area moist, draining scant serous fluid. Periwound well defined but irregular. Left Foot toes reddened. Pulses non palpable to Bilateral DP and AB. Patient awaiting evaluation for revascularization. Doppler studies to BLE performed today- awaiting results to chart. IMPRESSION: 1. Sacral- Blanchable Erythema 2. BLE Scattered Vascular Ulcers- Stable Eschar 3. Left Lateral Malleolus - Vascular Ulcer- Full Thickness RECOMMENDATION: ( Conservative Treatment) 1. Sacral- Blanchable Erythema - Wash area with mild soap and water then pat dry thoroughly - Apply Tolna Cream q12H and PRN soiling then cover with Allevyn Foam Sacrum Dressing 2. BLE Scabs/ Stable Eschar - Vascular Ulcers - Gutierrez with Betadine Daily 3. Left Lateral Ankle- Vascular Ulcer- Full Thickness - Cleanse wound with NS and 4x4 gauze. - Apply Iodosorb gel and Cover with staggered 4x4 gauze and wrap with light Kerlix Daily. 4. Moderate PUP protocol 5. Encourage turning and repositioning while in bed 6. Offload Heels with Pillows while in bed. 7. Alternating Pressure Air Mattress and set to patient current weight. Thank you for consulting with Wound Care. Addendum: 02/08/19 at 1820 by Magnus Medel RN Amended: Links added.
[2019-02-08] MEDS ORDERED: POTASSIUM CHLORIDE 20 MEQ TAB CR PO NR (18:22)
[2019-02-08] MEDS ORDERED: ZINC OXIDE / BALSAM PERU 30 GM TUBE TOP SCH (18:30)
[2019-02-08] MEDS: SIMVASTATIN 20 MG TAB PO SCH (20:25)
[2019-02-09] VITALS (9 sets, daily range): BP systolic 136–190; BP diastolic 64–81
[2019-02-09] MEDS: VANCOMYCIN 1GM/NS 250 ML 250 ML IV SCH ×2 (02:34→14:45)
[2019-02-09] MEDS: CLONIDINE HCL 0.1 MG TAB PO PRN ×3 (02:34→21:09)
[2019-02-09] MEDS: ACETAMINOPHEN 325 MG TAB PO PRN ×3 (02:34→13:25)
[2019-02-09] MEDS: CEFEPIME 1GM/NS 0.9% 50 ML 50 ML IV SCH ×2 (04:20→15:43)
--- NOTE | 2019-02-09 07:25 | NUR ---
PATIENT IN BED WITH HEAD OF BED ELEVATED WATCHING TV, NO RESPIRATORY DISTRESS OBSERVED. WOUND TO LEFT ANKLE WITH DRESSING INTACT , MULTIPLE SCABS TO LOWER EXTREMITIES. BED IN LOWER POSITION, CALL LIGHT AT REACH.
[2019-02-09] MEDS: PANTOPRAZOLE SOD 40 MG TABEC PO SCH (07:50)
[2019-02-09] MEDS: NON-FORMULARY MEDICATION (Nabumetone 500 MG) PO SCH ×3 (09:00→21:00)
[2019-02-09] MEDS: HYDROCHLOROTHIAZIDE 25 MG TAB PO SCH (09:23)
[2019-02-09] MEDS: OLMESARTAN 20 MG TAB PO SCH (09:23)
[2019-02-09] MEDS: LORATADINE 10 MG TAB PO SCH (09:23)
[2019-02-09] MEDS: OYST-CAL-D 500MG TABLET PO SCH (09:23)
[2019-02-09] MEDS: ZINC OXIDE / BALSAM PERU 30 GM TUBE TOP SCH ×2 (10:29→21:09)
[2019-02-09] MEDS: CADEXOMER IODINE 30 GM TUBE TOP SCH (10:29)
--- NOTE | 2019-02-09 11:30 | NUR ---
PATIENT ASSISTED WITH DIAPER CHANGE, HAD A BM. REPOSITIONED IN BED WITH CALL LIGHT AT REACH.
--- NOTE | 2019-02-09 14:43 | NUR ---
SPOKE WITH MD REGARDING ABNORMAL LAB RESULT, NO NEW ORDER RECEIVED.
--- NOTE | 2019-02-09 15:00 | NUR ---
PATIENT NOTED WITH B/P OF 172/79. PRN CLONIDINE GIVEN ORDERED. B/P RECHECKED WITH THE READING OF 158/82. WILL CLOSELY MONITOR.
[2019-02-09] MEDS ORDERED: ONDANSETRON HCL 4 MG ORAL DISINTEGRATING TAB PO PRN (16:45)
[2019-02-09] MEDS: HYDRALAZINE HCL 20 MG/ML VIAL IV PRN (17:39)
[2019-02-09] MEDS: SIMVASTATIN 20 MG TAB PO SCH (21:09)
[2019-02-10] VITALS (7 sets, daily range): BP systolic 159–183; BP diastolic 73–81
[2019-02-10] MEDS: VANCOMYCIN 1GM/NS 250 ML 250 ML IV SCH ×2 (03:00→15:30)
[2019-02-10] MEDS: CEFEPIME 1GM/NS 0.9% 50 ML 50 ML IV SCH ×2 (04:22→15:24)
[2019-02-10 07:03] LABS: BASOPHILS # (AUTO) 0.1 (0.0-0.1); BASOPHILS % 1.2 % (0.0-1.0); EOSINOPHILS # (AUTO) 0.2 (0.0-0.4); EOSINOPHILS % 1.6 % (0.0-6.0); HEMATOCRIT 32.6 % (34.2-44.1); HEMOGLOBIN 11.2 g/dL (12.0-16.0); LYMPHOCYTES # (AUTO) 1.7 (1.0-3.2); LYMPHOCYTES % 17.4 % (18.0-39.1); MEAN CORPUSCULAR HEMOGLOBIN 32.6 pg (28-32); MEAN CORPUSCULAR HGB CONC 34.4 g/dL (31-35); MEAN CORPUSCULAR VOLUME 94.8 fL (81-99); MONOCYTES % 9.8 % (4.4-11.3); NEUTROPHILS # (AUTO) 6.7 (2.1-6.9); NEUTROPHILS % 68.2 % (38.7-80.0); PLATELET COUNT 322 x10e3/uL (140-360); RED BLOOD COUNT 3.44 x10e6/uL (3.6-5.1); RED CELL DISTRIBUTION WIDTH 12.9 % (11.7-14.4)
[2019-02-10 07:24] LABS: ALANINE AMINOTRANSFERASE 6 IU/L (0-55); ALBUMIN 2.8 g/dL (3.5-5.0); ALBUMIN/GLOBULIN RATIO 0.9 (0.8-2.0); ALKALINE PHOSPHATASE 78 IU/L (40-150); ANION GAP 13.8 mmol/L (8-16); BLOOD UREA NITROGEN 7 mg/dL (7-26); BUN/CREATININE RATIO 14 (6-25); CALCIUM 9.1 mg/dL (8.4-10.2); CARBON DIOXIDE 24 mmol/L (22-29); CHLORIDE 94 mmol/L (98-107); CREATININE, SERUM 0.49 mg/dL (0.57-1.11); EST GLOMERULAR FILTRATION RATE > 60 ML/MIN (60-); GLUCOSE 98 mg/dL (74-118); POTASSIUM 3.8 mmol/L (3.5-5.1); SODIUM 128 mmol/L (136-145)
--- NOTE | 2019-02-10 07:25 | NUR ---
PATIENT SITTING UP IN BED TALKING ON THE PHONE, NO DISTRESS NOTED. DRESSING INTACT TO LEFT ANKLE. BED IN LOWER POSITION, CALL LIGHT AT REACH.
[2019-02-10] MEDS: PANTOPRAZOLE SOD 40 MG TABEC PO SCH (07:57)
[2019-02-10] MEDS: NON-FORMULARY MEDICATION (Nabumetone 500 MG) PO SCH ×3 (09:00→21:00)
[2019-02-10] MEDS: HYDROCHLOROTHIAZIDE 25 MG TAB PO SCH (09:20)
[2019-02-10] MEDS: LORATADINE 10 MG TAB PO SCH (09:20)
[2019-02-10] MEDS: OLMESARTAN 20 MG TAB PO SCH (09:20)
[2019-02-10] MEDS: OYST-CAL-D 500MG TABLET PO SCH (09:20)
[2019-02-10] MEDS: AMLODIPINE BESYLATE 5 MG TAB PO SCH (09:20)
[2019-02-10] MEDS: CADEXOMER IODINE 30 GM TUBE TOP SCH (09:20)
[2019-02-10] MEDS: ZINC OXIDE / BALSAM PERU 30 GM TUBE TOP SCH ×2 (10:26→22:23)
--- NOTE | 2019-02-10 11:37 | NUR ---
PATIENT ASSISTED WITH DIAPER CHANGE, HAD A BM. IV FLUID INFUSING ORDERED. BED IN LOWER POSITION, CALL LIGHT AT REACH.
--- NOTE | 2019-02-10 16:20 | NUR ---
DRESSING CHANGED TO LEFT ANKLE ORDERED. PATIENT ASSISTED WITH DIAPER CHANGE. IN BED WITH CALL LIGHT AT REACH.
--- NOTE | 2019-02-10 20:18 | NUR ---
RECEIVED PT IN BED AOX3 PATIENT IN BED . NO RESPIRATORY DISTRESS OBSERVED. WOUND TO LEFT ANKLE WITH DRESSING INTACT , MULTIPLE SCABS TO LOWER EXTREMITIES. CHANGED DIAPER , CALL LIGHT AT REACH.
--- NOTE | 2019-02-10 20:39 | NUR ---
RECEIVED PT IN BED AOX3 ..LEFT AC 20 G RUNNING NS AT 50CC/HR .PT HAS LEFT ANKLE WOUND AND SACRUM REDNESS .DENIES PAIN .CALL LIGHT WITH IN REACH .CONTINUE TO MONITOR
[2019-02-10] MEDS: SIMVASTATIN 20 MG TAB PO SCH (21:00)
[2019-02-11] VITALS (7 sets, daily range): BP systolic 159–192; BP diastolic 71–84
[2019-02-11] MEDS: SODIUM CHLORIDE 0.9% 1000ML 1,000 ML IV SCH ×2 (01:29→15:45)
[2019-02-11] MEDS: VANCOMYCIN 1GM/NS 250 ML 250 ML IV SCH ×2 (02:16→14:45)
[2019-02-11] MEDS: CEFEPIME 1GM/NS 0.9% 50 ML 50 ML IV SCH ×2 (04:24→15:45)
[2019-02-11] MEDS: CLONIDINE HCL 0.1 MG TAB PO PRN ×2 (04:27→17:06)
[2019-02-11] MEDS ORDERED: MAGNESIUM SULFATE 2GM/50ML 50 ML IV ONE (05:15)
--- NOTE | 2019-02-11 06:48 | NUR ---
PT RESTING AND PT URINATED Q3HRS .CALL LIGHT WITH IN REACH .CONTINUE TO MONITOR
--- NOTE | 2019-02-11 07:29 | NUR ---
BEDSIDE REPORT GIVEN TO THE ONCOMING NURSE.
[2019-02-11] MEDS: PANTOPRAZOLE SOD 40 MG TABEC PO SCH (07:30)
[2019-02-11] MEDS: NON-FORMULARY MEDICATION (Nabumetone 500 MG) PO SCH ×3 (09:00→20:41)
[2019-02-11] MEDS: LORATADINE 10 MG TAB PO SCH (09:44)
[2019-02-11] MEDS: OLMESARTAN 20 MG TAB PO SCH (09:44)
[2019-02-11] MEDS: OYST-CAL-D 500MG TABLET PO SCH (09:44)
[2019-02-11] MEDS: AMLODIPINE BESYLATE 5 MG TAB PO SCH (09:44)
[2019-02-11] MEDS: HYDROCHLOROTHIAZIDE 25 MG TAB PO SCH (09:44)
--- NOTE | 2019-02-11 11:54 | NUR ---
Patient alert, responsive, no resp distress and tolerated all meds, denies any pains and will monitor
--- NOTE | 2019-02-11 11:54 | NUR ---
Another call today again to Dr. Carreno's office regarding consult that has been due for 4 days
--- NOTE | 2019-02-11 15:43 | NUR ---
Reported Vanco trough level to attending and orders in place to continue Vancomycin.
[2019-02-11] MEDS: CADEXOMER IODINE 30 GM TUBE TOP SCH (16:11)
[2019-02-11] MEDS: ZINC OXIDE / BALSAM PERU 30 GM TUBE TOP SCH ×2 (16:11→21:57)
--- NOTE | 2019-02-11 16:12 | NUR ---
Dr. Carreno in to see patient and at this point, he states he will not be do anything much but possibly at a later time. Dressing change completed to left ankle ulcer and treatment applied.
--- NOTE | 2019-02-11 17:14 | NUR ---
Nutrition Intervention Note RD Recommendation(s) for Physician: - Continue current diet - Pt meets criteria for moderate protein calorie malnutrition Plan of Care: RD following, monitoring for tolerance and adequacy Nutrition reason for involvement: Follow up RD Assessment 02/11: Visited pt in the room. Pt reported good appetite with 100% lunch intake today. No GI complains noted. Tolerating current diet. No nutrition intervention needed at this time. Please consult if needed. 02/08: 73 YOF admitted for severe PAD, seen today per admit with stage II PU at admit. Pt discussed during am rounds. Pt reports decreased appetite and intake due to "being in the hospital before and not being able to eat because of all the procedures". Pt denies N/V/C/D or difficulties chewing or swallowing. Pt reports UBW of 110# a month ago prior to hospitalizations, noted 6% wt loss in 1 month. Pt declined all supplements offered and states she's eating well now and does not need any, noted 90% intake of lunch tray. Will monitor and continue to follow. Principal Problems/Diagnoses: Severe PAD with LLE ulcers PMH: C-diff, HTN, GERD, cholecystectomy GI: LBM 02/11 Skin: no pressure ulcer per wound care notes Labs: 02/11: Na 128 L, Creatinine 0.49 L 02/08 BMP WNL Meds: abx, NaCl, oscal D, HCTZ, protonix Ht: 60 in Wt: 103 lb; 111.56lb BMI: 19.9 kg/m2 IBW: 100 lb Malnutrition Evaluation (02/08/19) The patient meets criteria for MODERATE protein-calorie malnutrition. Energy intake: <75% of estimated energy requirements for 1 month Weight loss: >5% in 1 month (Acute) Fat loss: Mild Muscle loss: Mild Supporting Evidence: none Nutrition Prescription (Diet Order): cardiac Estimated Nutritional Needs: 8792-3523 calories/day (25-35 kcal/kg CBW) 47-70 g protein/day (1-1.5 g pro/kg CBW) Diet Adequacy: meeting calorie needs, meeting protein needs Diet Education Needs Assessment: Diet education not indicated at this time. Nutrition Care Level: low Nutrition Diagnosis: Inadequate energy and protein intake related to current medical status, hospitalizations and procedures as reported by pt as evidenced by 6% wt loss in 1 month and not meeting needs. Goal: Patient will meet 75-100% of estimated needs by follow up Progress: Goal met Interventions: Fat, mineral modified diet, Multivitamin/mineral supplement therapy, Collaboration with other providers Monitoring/Evaluation: Total energy intake, Total protein intake, Modified diet Signed: Saundra Padron MS, RD, LD
--- NOTE | 2019-02-11 19:15 | NUR ---
Patient visited in room during nursing rounds. Patient alert and oriented x3. Up with assist prn. On IVF (NS at 50ml/hr). left leg with couple of scabs and has wound on left ankle (lateral) covered with dressing (C/D/I). Call avina within reach. Will monitor closely.
[2019-02-11] MEDS: SIMVASTATIN 20 MG TAB PO SCH (20:41)
--- NOTE | 2019-02-11 22:00 | NUR ---
Patient given a bed bath. Patient tolerated bath well. Diaper and linen were changed. Pt had a bowel movement prior to diaper change.
[2019-02-12] VITALS (10 sets, daily range): BP systolic 122–200; BP diastolic 60–84
[2019-02-12] MEDS: VANCOMYCIN 1GM/NS 250 ML 250 ML IV SCH ×2 (02:31→14:45)
[2019-02-12] MEDS: CLONIDINE HCL 0.1 MG TAB PO PRN ×2 (03:22→19:51)
[2019-02-12] MEDS: CEFEPIME 1GM/NS 0.9% 50 ML 50 ML IV SCH ×2 (04:00→15:52)
--- NOTE | 2019-02-12 06:00 | NUR ---
Patient asleep at this time. Condition stable and pt appear comfortable. Call avina within reach.
[2019-02-12] MEDS: PANTOPRAZOLE SOD 40 MG TABEC PO SCH (07:30)
--- NOTE | 2019-02-12 07:35 | NUR ---
Received patient this morning, a/ox3, rounds completed and call light within reach, will monitor
[2019-02-12] MEDS: NON-FORMULARY MEDICATION (Nabumetone 500 MG) PO SCH ×3 (09:00→19:28)
[2019-02-12] MEDS: SODIUM CHLORIDE 0.9% 1000ML 1,000 ML IV SCH (09:00)
[2019-02-12] MEDS: OYST-CAL-D 500MG TABLET PO SCH (09:01)
[2019-02-12] MEDS: AMLODIPINE BESYLATE 5 MG TAB PO SCH (09:01)
[2019-02-12] MEDS: OLMESARTAN 20 MG TAB PO SCH (09:01)
[2019-02-12] MEDS: LORATADINE 10 MG TAB PO SCH (09:01)
[2019-02-12] MEDS: HYDROCHLOROTHIAZIDE 25 MG TAB PO SCH (09:01)
--- NOTE | 2019-02-12 15:44 | NUR ---
Patient alert and responsive, had soft formed BM and incontinence care provided, will monitor as call light within reach
[2019-02-12] MEDS: CADEXOMER IODINE 30 GM TUBE TOP SCH (15:51)
[2019-02-12] MEDS: ZINC OXIDE / BALSAM PERU 30 GM TUBE TOP SCH ×2 (15:51→22:00)
--- NOTE | 2019-02-12 19:30 | NUR ---
Patient visited in room during nursing rounds. Patient alert and oriented x3. Up with assist prn. On IVF (NS at 50ml/hr). Left leg with couple of scabs and has wound on left ankle (lateral) covered with dressing (C/D/I). Patient displays intermittent jerky movements. MD aware. Call avina within reach. Will monitor closely.
[2019-02-12] MEDS: SIMVASTATIN 20 MG TAB PO SCH (19:57)
[2019-02-12] MEDS: HYDRALAZINE HCL 20 MG/ML VIAL IV PRN (23:13)
[2019-02-13] VITALS (8 sets, daily range): BP systolic 133–179; BP diastolic 61–88
[2019-02-13] MEDS: CEFEPIME 1GM/NS 0.9% 50 ML 50 ML IV SCH ×2 (03:15→15:15)
[2019-02-13] MEDS: CLONIDINE HCL 0.1 MG TAB PO PRN (04:30)
[2019-02-13] MEDS: OLMESARTAN 20 MG TAB PO SCH (04:30)
[2019-02-13] MEDS: AMLODIPINE BESYLATE 5 MG TAB PO SCH (04:30)
[2019-02-13] MEDS: PANTOPRAZOLE SOD 40 MG TABEC PO SCH (07:30)
[2019-02-13] MEDS: VANCOMYCIN 1GM/NS 250 ML 250 ML IV SCH ×2 (08:00→20:55)
[2019-02-13] MEDS: OYST-CAL-D 500MG TABLET PO SCH (08:23)
[2019-02-13] MEDS: NON-FORMULARY MEDICATION (Nabumetone 500 MG) PO SCH ×3 (08:23→20:55)
[2019-02-13] MEDS: LORATADINE 10 MG TAB PO SCH (08:23)
[2019-02-13] MEDS: CADEXOMER IODINE 30 GM TUBE TOP SCH (08:23)
[2019-02-13] MEDS: HYDROCHLOROTHIAZIDE 25 MG TAB PO SCH (08:23)
--- NOTE | 2019-02-13 08:33 | NUR ---
Received patient this morning, a/ox3, VSS and tolerated all meds, in bed, denies any pains. Vanco trough reported to attending and to continue with vancomycin IV, will monitor.
[2019-02-13] MEDS: ZINC OXIDE / BALSAM PERU 30 GM TUBE TOP SCH ×2 (10:00→20:55)
[2019-02-13] MEDS: SODIUM CHLORIDE 0.9% 1000ML 1,000 ML IV SCH ×2 (16:29→20:56)
--- NOTE | 2019-02-13 19:08 | NUR ---
Rounds completed, patient stable and report given to on coming nurse. Bed in low locked position, call light within reach
--- NOTE | 2019-02-13 19:15 | NUR ---
Rounding done & report received. Patient is awake and sitting in bed, A&Ox4, RR even & unlabored, no distress noted. Patient denies any issues or needs at this time. Call light within reach, bed set to lowest position & siderails x2 raised.
[2019-02-13] MEDS: SIMVASTATIN 20 MG TAB PO SCH (20:55)
--- NOTE | 2019-02-13 22:12 | NUR ---
Wound dressing to left ankle done
[2019-02-14] VITALS: BP 154/65
[2019-02-14 04:00] VITALS: BP 185/79
[2019-02-14] MEDS: CEFEPIME 1GM/NS 0.9% 50 ML 50 ML IV SCH ×2 (04:05→15:38)
[2019-02-14] MEDS: CLONIDINE HCL 0.1 MG TAB PO PRN (04:21)
--- NOTE | 2019-02-14 07:08 | NUR ---
RECEIVED PATIENT RESTING IN BED. NO ACUTE DISTRESS NOTED. DENIES PAIN OR DISCOMFORT. CALL LIGHT WITHIN REACH. BED IN THE LOWEST POSITION.
[2019-02-14 07:30] LABS: BASOPHILS # (AUTO) 0.1 (0.0-0.1); BASOPHILS % 0.9 % (0.0-1.0); EOSINOPHILS # (AUTO) 0.3 (0.0-0.4); EOSINOPHILS % 2.6 % (0.0-6.0); HEMOGLOBIN 10.5 g/dL (12.0-16.0); LYMPHOCYTES # (AUTO) 1.8 (1.0-3.2); LYMPHOCYTES % 16.4 % (18.0-39.1); MEAN CORPUSCULAR HEMOGLOBIN 32.5 pg (28-32); MEAN CORPUSCULAR HGB CONC 33.9 g/dL (31-35); MONOCYTES # (AUTO) 0.9 (0.2-0.8); MONOCYTES % 8.6 % (4.4-11.3); NEUTROPHILS # (AUTO) 7.8 (2.1-6.9); NEUTROPHILS % 70.7 % (38.7-80.0); PLATELET COUNT 335 x10e3/uL (140-360); RED BLOOD COUNT 3.23 x10e6/uL (3.6-5.1); RED CELL DISTRIBUTION WIDTH 12.9 % (11.7-14.4)
[2019-02-14 07:42] VITALS: BP 163/73
[2019-02-14 07:54] LABS: ALANINE AMINOTRANSFERASE 11 IU/L (0-55); ALBUMIN 2.6 g/dL (3.5-5.0); ALBUMIN/GLOBULIN RATIO 0.8 (0.8-2.0); ALKALINE PHOSPHATASE 81 IU/L (40-150); ANION GAP 10.6 mmol/L (8-16); BLOOD UREA NITROGEN 11 mg/dL (7-26); BUN/CREATININE RATIO 24 (6-25); CALCIUM 9.3 mg/dL (8.4-10.2); CARBON DIOXIDE 32 mmol/L (22-29); CHLORIDE 94 mmol/L (98-107); CREATININE, SERUM 0.46 mg/dL (0.57-1.11); EST GLOMERULAR FILTRATION RATE > 60 ML/MIN (60-); GLUCOSE 98 mg/dL (74-118); POTASSIUM 4.6 mmol/L (3.5-5.1); SODIUM 132 mmol/L (136-145)
[2019-02-14] MEDS: NON-FORMULARY MEDICATION (Nabumetone 500 MG) PO SCH ×2 (08:08→15:00)
[2019-02-14] MEDS: PANTOPRAZOLE SOD 40 MG TABEC PO SCH (08:59)
[2019-02-14] MEDS ORDERED: AMLODIPINE BESYLATE 5 MG TAB PO SCH (09:00)
[2019-02-14] MEDS: OYST-CAL-D 500MG TABLET PO SCH (09:00)
[2019-02-14] MEDS: LORATADINE 10 MG TAB PO SCH (09:00)
[2019-02-14] MEDS: OLMESARTAN 20 MG TAB PO SCH (09:00)
[2019-02-14] MEDS: HYDROCHLOROTHIAZIDE 25 MG TAB PO SCH (09:00)
[2019-02-14] MEDS: VANCOMYCIN 1GM/NS 250 ML 250 ML IV SCH (09:00)
[2019-02-14] MEDS: ZINC OXIDE / BALSAM PERU 30 GM TUBE TOP SCH (09:07)
--- NOTE | 2019-02-14 09:20 | NUR ---
RECEIVED A CALL FROM MARITZA AT [facility] IN REGARDS TO PATIENT BEING TRANSFERRED TO THAT FACILITY. NO ORDERS ON FILE FOR PATIENT'S TRANSFER. PAGED DR. WATKINS AT THIS TIME TO ASK ABOUT TRANSFER ORDER.
[2019-02-14] MEDS: CADEXOMER IODINE 30 GM TUBE TOP SCH (10:00)
--- NOTE | 2019-02-14 10:19 | NUR ---
EDUCATED ABOUT IMM, SIGNED, FILED IN CHART, WITH COPY LEFT WITH FAMILY AT BEDSIDE.
[2019-02-14 11:32] VITALS: BP 159/71
--- NOTE | 2019-02-14 11:49 | NUR ---
CM FOLLOWED UP WITH TRANSFER INITIATION PER ORDER. CM SPOKE TO PATIENT AT BEDSIDE REGARDING TRANSFER FOR HIGHER LEVEL OF CARE. PATIENT AWARE OF TRANSFER AND REQUESTS [facility]. PATIENT GIVEN ALL HER CHOICES AND INFORMED THAT SHE HAS A CHOICE. SHE CHOOSES [facility]. CHOICE LETTER SIGNED AND PLACED IN CHART. CM CALLED AND SPOKE TO MARITZA AT THE [facility] TRANSFER CENTER. TRANSFER INITATED AND FACESHEET SENT TO TRANSFER CENTER REQUESTED. PENDING BED FOR TRANSFER [facility] [address] [place] [address] (P) [phone] (F)[phone] Addendum: 02/14/19 at 1159 by Elyssa Jimenez CM MOT INITIATED AND GIVEN TO WELT RANDER.
[2019-02-14 13:37] VITALS: BP 142/64
--- NOTE | 2019-02-14 15:13 | NUR ---
CALLED REPORT TO CAITLIN JORDAN AT [facility] AT THIS TIME.
--- NOTE | 2019-02-14 16:26 | NUR ---
RECEIVED DC ORDER FROM MD, PATIENT IS TO BE TRANSFERRED TO [facility]. PATIENT IS IN STABLE CONDITION. IV LINE TO LEFT FOREARM IS ASYMPTOMATIC AND INTACT, SALINE FLUSH. REPORT CALLED TO CAITLIN JORDAN @ [phone]. PATIENT'S SON RUPESH NOTIFIED. PATIENT BEING TRANSPORTED VIA EMS. ALL TRANSFER PAPERWORK GIVEN TO EMS PERSONNEL.
--- NOTE | 2019-02-15 05:37 | Discharge Summary ---
DISCHARGE DIAGNOSES: 1. Left leg peripheral arterial disease. 2. Left leg cellulitis. DISPOSITION: The patient was transferred to [facility] by Dr. Christoph Carreno for possible surgical intervention. HISTORY OF PRESENT ILLNESS AND HOSPITAL COURSE: The patient is a smoker, who presented with an ischemic left lower extremities where evaluations with CT angiogram with runoff as well as peripheral Dopplers with ABIs show significant peripheral arterial disease. She was placed on IV antibiotics for the cellulitis, which did improve and she was seen by Dr. Carreno, who felt like the patient could benefit from surgical intervention, so once transfer arrangements were made, the patient was able to be transferred to [facility] to Dr. Carreno for further evaluation and care. Please see hospital chart for full details. MD BRIE Kee/NINA /[id number]
== END 2019-02-14 16:26 | disposition short-term general hospital (02) | DRG 872 ==
LOC: ER 10:51 → ERHOLD 14:34 → MED/SURG3 15:48
PROVIDERS: ADMIT Internal Medicine; ATTEND Internal Medicine
DX: A41.9 Sepsis, unspecified organism (principal); E87.1 Hypo-osmolality and hyponatremia; L03.116 Cellulitis of left lower limb; E44.0 Moderate protein-calorie malnutrition; L97.328 Non-pressure chronic ulcer of left ankle with other specified severity; I70.243 Atherosclerosis of native arteries of left leg with ulceration of ankle; F17.210 Nicotine dependence, cigarettes, uncomplicated; I10 Essential (primary) hypertension; E78.5 Hyperlipidemia, unspecified; Z88.0 Allergy status to penicillin; Z88.2 Allergy status to sulfonamides; Z88.7 Allergy status to serum and vaccine; Z88.8 Allergy status to other drugs, medicaments and biological substances; Z91.048 Other nonmedicinal substance allergy status; Z68.21 Body mass index [BMI] 21.0-21.9, adult; J44.9 Chronic obstructive pulmonary disease, unspecified; K21.9 Gastro-esophageal reflux disease without esophagitis
CPT/HCPCS: 36415; 71045; 75635; 80048; 80053; 80061; 80202; 81001; 83735; 85025; 85610; 85730; 87086; 87493; 93005; 93925; 99284; J0360; J0692; J3370; J3475; J7030; Q9967

== ENCOUNTER → 2019-04-25 | Outpatient (CLI) | payer MEDICARE, OTHER ==
[~2019-04-25] MED LIST changes: +ASPIRIN EC81 MG PO; +ATORVASTATIN CA20 MG PO; +DICLOFENAC SODI75 MG PO; +DICYCLOMINE HCL20 MG PO; +IOPAMIDOL 370 MG/ML 200 ML INFUS..BTL INJ ONE; +OLMESARTAN-HCTZ PO; +SODIUM CHLORIDE 0.9% 50ML 50 ML ONE
[2019-04-25 10:37] LABS: BLOOD UREA NITROGEN 14 mg/dL (7-26); BUN/CREATININE RATIO 27 (6-25); CREATININE, SERUM 0.51 mg/dL (0.57-1.11); EST GLOMERULAR FILTRATION RATE > 60 ML/MIN (60-)
--- NOTE | 2019-04-25 11:41 | Diagnostic Imaging Report ---
EXAM: CT Pelvis WITH intravenous contrast INDICATION: Groin swelling, assess for pseudoaneurysm COMPARISON: None. TECHNIQUE: Pelvis were scanned utilizing a multidetector helical scanner from the iliac crest to the pubic symphysis following administration of IV contrast. Coronal and sagittal reformations were obtained. Routine protocol was performed. IV CONTRAST: 100cc Isovue 370. ORAL CONTRAST: None RADIATION DOSE: Total DLP: 169.5 mGy*cm COMPLICATIONS: None FINDINGS: LINES and TUBES: None. GI TRACT: Extensive sigmoid colonic diverticulosis without CT evidence of diverticulitis. No abnormal bowel wall thickening. No bowel obstruction. Status post appendectomy. PELVIC ORGANS/BLADDER: Status post hysterectomy. LYMPH NODES: No lymphadenopathy. VESSELS: Compared to the prior CTA of 02/08/2019, there has been interval aortobifemoral bypass surgery. The graft appears widely patent. There is wide patency of the left superficial femoral artery and deep femoral artery. On the right, the deep femoral artery is patent but there is no superficial femoral arterial opacification. No pseudoaneurysm. Extensive atherosclerotic calcifications of the nulato aorta and iliac branches. PERITONEUM / RETROPERITONEUM: No free air or fluid. BONES: No acute osseous injury. Diffuse osteopenia. Degenerative changes of the visualized lower lumbar spine. SOFT TISSUES: There is a 5.1 x 3.3 cm low-attenuation fluid collection at the anterior left groin just below the level of the femoral bifurcation, likely representing a seroma or lymphocele. There is diffuse muscle atrophy and subcutaneous soft tissue edema. IMPRESSION: Status post interval aortobifemoral bypass surgery with patent graft and patent flow to the superficial and deep femoral arteries on the left and to the deep femoral artery on the right with no right superficial femoral arterial flow. No groin pseudoaneurysm. 5.1 x 3.3 cm low attenuation fluid collection in the anterior left groin just below the level of the femoral bifurcation likely represents a postoperative seroma or lymphocele. Signed by: Chip Carrington MD on 04/25/2019 11:37 AM
== END ==
LOC: CT 09:26
PROVIDERS: ATTEND Thoracic Surgery (Cardiothoracic Vascular Surgery)
DX: R19.04 Left lower quadrant abdominal swelling, mass and lump (principal); K57.30 Diverticulosis of large intestine without perforation or abscess without bleeding; Z98.890 Other specified postprocedural states
CPT/HCPCS: 36415; 72193; 82565; 84520; Q9967

== ENCOUNTER 2019-05-19 19:16 | Inpatient (IN) | payer MEDICARE, OTHER ==
[~2019-05-19] VITALS: Ht 152.4 cm; Wt 50.4 kg
[~2019-05-19 19:16] MED LIST changes: -ASPIRIN EC81 MG PO; -ATORVASTATIN CA20 MG PO; -DICLOFENAC SODI75 MG PO; -DICYCLOMINE HCL20 MG PO; -IOPAMIDOL 370 MG/ML 200 ML INFUS..BTL INJ ONE; -OLMESARTAN-HCTZ PO; -SODIUM CHLORIDE 0.9% 50ML 50 ML ONE
--- OUTSIDE RECORDS SUMMARY | 2019-05-19 19:21 | XMS REPORT | Clinical Summary ---
Author Author [facility] Organization [facility] Address Unknown Phone Unavailable Care Team Providers Care Algorithm Design Engineer Name Role Phone Cornelio Palm MD PCP Allergies Comments Active Allergy Reactions Severity Noted Date Penicillins Rash Low 02/14/2019 faint Sulfa (Sulfonamide Other (See Low 02/14/2019 Antibiotics) Comments) fever Tetanus Vaccines And Rash Low 02/14/2019 Toxoid lightheadedness Tetracycline Rash Low 02/14/2019 Medications End Date Status Medication Sig Dispensed Refills Start Date Active pantoprazole (PROTONIX) Take 40 mg by 0 40 MG EC tablet mouth daily. Active amLODIPine (NORVASC) 10 Take 10 mg by 0 mg tablet mouth daily. 03/03/2019 Discontinued (Stop Taking at Discharge) hydroCHLOROthiazide Take 25 mg by 0 (HYDRODIURIL) 25 MG mouth daily. tablet 03/03/2019 Discontinued (Stop Taking at Discharge) cefepime 1 g IVPB in 50 Infuse 1 g 0 mL ([id number]) into a venous catheter every 12 (twelve) hours. 03/03/2019 Discontinued (Stop Taking at Discharge) olmesartan (BENICAR) 40 Take 40 mg by 0 MG tablet mouth daily. 03/03/2019 Discontinued (Stop Taking at Discharge) simvastatin (ZOCOR) 20 MG Take 20 mg by 0 tablet mouth nightly. 03/03/2019 Discontinued (Stop Taking at Discharge) nabumetone (RELAFEN) 500 Take 500 mg 0 MG tablet by mouth 3 (three) times a day. 03/03/2019 Discontinued (Stop Taking at Discharge) calcium carbonate 1250 MG Take 1 tablet 0 capsule by mouth daily. 03/03/2019 Discontinued (Stop Taking at Discharge) loratadine (CLARITIN) 10 Take 10 mg by 0 mg tablet mouth daily. 03/03/2019 Discontinued (Stop Taking at Discharge) cadexomer iodine Apply 1 0 (IODOSORB) 0.9 % gel application topically daily. 03/03/2019 Discontinued (Stop Taking at Discharge) zinc oxide 16 % ointment Apply 1 0 application topically every 12 (twelve) hours. 03/03/2019 Discontinued (Stop Taking at Discharge) vancomycin 1 gram/250 mL Infuse 1 g 0 solution into a venous catheter every 12 (twelve) hours. 03/03/2019 Discontinued (Stop Taking at Discharge) clonIDINE (CATAPRES) 0.1 Take 0.1 mg 0 MG tablet by mouth as needed for high blood pressure (sbp>170). 03/02/2019 Discontinued tetrabenazine (XENAZINE) Take 12.5 mg 30 tablet 0 12.5 MG tablet by mouth 9 daily for 1 week then twice daily for 3 weeks then increase to 25 mg twice daily thereafter 04/02/2019 acetaminophen (TYLENOL) Take 2 0 325 MG tablet tablets (650 9 mg total) by mouth every 6 (six) hours as needed for fever (GREATER than 100.4) for up to 30 days. 04/02/2019 arformoterol (BROVANA) 15 Take 2 mL (15 120 mL 0 mcg/2 mL solution for mcg total) by 9 nebulization nebulization 2 (two) times a day for 30 days. 04/02/2019 aspirin 81 mg chewable Chew 1 tablet 30 tablet 0 tablet (81 mg total) 9 daily for 30 days. 04/02/2019 atorvastatin (LIPITOR) 20 Take 1 tablet 30 tablet 0 MG tablet (20 mg total) 9 by mouth nightly for 30 days. Default OP ins 04/02/2019 B complex-vitamin C-folic Take 1 tablet 30 tablet 0 acid (FOLBEE PLUS 5 MG) 5 by mouth 9 mg tablet per tablet daily for 30 days. 04/02/2019 bisacodyl (DULCOLAX) 10 Insert 1 0 mg suppository suppository 9 (10 mg total) into the rectum daily as needed for constipation for up to 30 days. 04/02/2019 cholecalciferol, vitamin Take 1 tablet 30 tablet 0 D3, (VITAMIN D3) 2,000 (2,000 Units 9 unit tablet total) by mouth daily for 30 days. 04/02/2019 collagenase (SANTYL) Apply 0 ointment topically 9 daily for 30 days. 04/02/2019 enoxaparin (LOVENOX) 40 Inject 0.4 mL 12 mL 0 mg/0.4 mL syringe (40 mg total) 9 under the skin daily for 30 days. 04/02/2019 guaiFENesin (ROBITUSSIN) Take 20 mL 0 100 mg/5 mL syrup (400 mg 9 total) by mouth 3 (three) times a day for 30 days. 04/02/2019 ipratropium-albuterol Take 3 mL by 0 (DUO-NEB) 0.5-2.5 mg/3 mL nebulization 9 nebulizer every 4 (four) hours as needed for wheezing for up to 30 days. 04/02/2019 metoprolol tartrate Take 1 tablet 60 tablet 0 (LOPRESSOR) 25 mg tablet (25 mg total) 9 by mouth 2 (two) times a day for 30 days. 04/02/2019 nicotine (NICODERM CQ) 14 Place 1 patch 30 patch 0 mg/24 hr on the skin 9 daily for 30 days. 04/02/2019 ondansetron ODT Take 1 tablet 0 (ZOFRAN-ODT) 4 MG (4 mg total) 9 disintegrating tablet by mouth every 8 (eight) hours as needed for nausea or vomiting for up to 30 days. 04/02/2019 ramelteon (ROZEREM) 8 mg Take 1 tablet 30 tablet 0 tablet (8 mg total) 9 by mouth nightly for 30 days. 04/02/2019 valsartan (DIOVAN) 160 MG Take 1 tablet 30 tablet 0 tablet (160 mg 9 total) by mouth daily for 30 days. 04/02/2019 zinc oxide-cod liver oil Apply 0 (DESITIN) 40 % paste topically 2 9 (two) times a day for 30 days. Active Problems Problem Noted Date Post-op pain 02/19/2019 Acute postoperative pulmonary insufficiency 02/19/2019 PAD (peripheral artery disease) 02/14/2019 Encounters Care Team Description Date Type Specialty Katie Garcias RN 02/25/2019 Telephone General Internal Medicine Farrukh Scales 02/23/2019 Documentation General Internal Medicine Rhianna Dinero MD Karpowitz, [place] 02/18/2019 Anesthesia Cardiothoracic Surgery Event Christoph Carreno MD AORTO BIFEM BYPASS (14x7); ENDARTERECTOMY OF ABDOMINAL AORTA; LEFT FEM-POP (BELOW KNEE) BYPASS USING 6mm PROPANTEN; ENDARTERECTOMIES OF RIGHT VERIFIER OPERATOR, PFA, SFA, AND LEF VERIFIER OPERATOR, PFA, SFA; PERICARDIAL PATCH RECONSTRUCTION OF RIGHT AND LEFT FEMORAL ARTERIES 02/18/2019 Surgery Cardiothoracic Surgery Daniel Rahman MD Cv arteriograms peripheral [40588 (CPT)] 02/17/2019 Surgery Procedural Cardiology Aleksandar Robison MD PAD (peripheral artery disease) (HCC) (Primary Dx); Pulmonary emphysema, unspecified emphysema type (HCC) 02/14/2019 [facility] General Internal Medicine - Encounter 03/03/2019 N/A 02/14/2019 Intake Access after 05/18/2018 Family History Medical History Relation Name Comments Asthma Father [place]'s disease Sister [place]'s disease Sister Relation Name Status Comments Father Sister Sister Social History Date Tobacco Use Types Packs/Day Years Used Current Every Day Smoker 1 60 Smokeless Tobacco: Never Used Tobacco Cessation: Ready to Quit: Yes; Counseling Given: Yes Drinks/Week oz/Week Comments Alcohol Use Never Alcohol Habits Answer Date Recorded How often do you have a drink containing alcohol? Never 02/18/2019 How many drinks containing alcohol do you have on Not asked a typical day when you are drinking? How often do you have six or more drinks on one Not asked occasion? Sex Assigned at Date Recorded Not on file Industry Job Start Date Occupation Not on file Not on file Not on file Travel End Travel History Travel Start No recent travel history available. Last Filed Vital Signs Reading Time Taken Comments Vital Sign 146/67 03/03/2019 7:49 AM CDT Blood Pressure 81 03/03/2019 9:36 AM CDT Pulse 36.1 C (96.9 F) 03/03/2019 7:49 AM CDT Temperature 18 03/03/2019 9:36 AM CDT Respiratory Rate 95% 03/03/2019 9:12 AM CDT Oxygen Saturation - - Inhaled Oxygen Concentration 59.5 kg (131 lb 4 oz) 02/28/2019 6:23 AM CDT Weight 152.4 cm (5') 02/14/2019 10:47 PM CDT Height 25.63 02/14/2019 10:47 PM CDT Body Mass Index Plan of Treatment Health Maintenance Due Date Last Done Comments BREAST CANCER SCREENING 1993 COLONOSCOPY SCREENING 1993 SHINGLES VACCINES (#1) 1993 65+ PNEUMOCOCCAL VACCINE 2008 (1 of 2 - PCV13) INFLUENZA VACCINE 04/21/2019 Implants Device Identifier Shelf Expiration Date Model / Serial / Lot Implanted Type Area Manufactur er [id number] / / Clip Ligtng Weck Hemoclip Plus W/ Medical N/A: N/A TELEFLEX Tape Ti Med - [id number] Clips for MEDICAL Implanted: 02/18/2019 at [facility] Internal H[facility]PITAL (Quantity not on file) Use 03/28/2022 [id number] / [id number] / [id number] Graft Vasclr Propaten Thn-Wl Strtch Vascular N/A: N/A W L GORE Rmvbl Ringed [id number] 6mm - Graft [id number] - [id number] Implanted: Qty: 1 on 02/18/2019 by Christoph Carreno MD at [facility] 11/18/2023 [id number] / / [id number] [place] Perph Vasclr Ptfe 1.2x10cm Vascular N/A: N/A BARD 1.65mm - [id number] Graft PERIPHERAL Implanted: Qty: 1 on 02/18/2019 by VASCULAR Christoph Carreno MD at [facility] 06/20/2023 [id number] / / [id number] Graft Vasclr Bifrctn Woven 40cm Vascular N/A: N/A ATRIUM 14mm 7mm Strl Hemashield - Graft MEDICAL [id number] Implanted: 02/18/2019 at [facility] (Quantity not on file) 07/28/2023 [id number] / / [id number] Patch Vasclr Perph 0.8x8cm Vascular N/A: N/A ABAD Vascu-Guard - [id number] Graft BIOSCIENCE Implanted: Qty: 1 on 02/18/2019 by Christoph Carreno MD at [facility] Procedures Comments Procedure Name Priority Date/Time Associated Diagnosis POC GLUCOSE Routine 03/03/2019 7:48 AM CDT HEPATIC FUNCTION PANEL Routine 03/03/2019 4:00 AM CDT PHOSPHORUS LEVEL Routine 03/03/2019 4:00 AM CDT MAGNESIUM LEVEL Routine 03/03/2019 4:00 AM CDT POC GLUCOSE Routine 03/02/2019 9:07 PM CDT POC GLUCOSE Routine 03/02/2019 5:41 PM CDT POC GLUCOSE Routine 03/02/2019 11:45 AM CDT MAGNESIUM LEVEL Routine 03/02/2019 4:06 AM CDT ESTIMATED GFR Routine 03/02/2019 4:06 AM CDT HC COMPLETE BLD COUNT Routine 03/02/2019 W/AUTO DIFF 4:06 AM CDT BASIC METABOLIC PANEL Routine 03/02/2019 4:06 AM CDT POC GLUCOSE Routine 03/01/2019 8:54 PM CDT POC GLUCOSE Routine 03/01/2019 5:32 PM CDT POC GLUCOSE Routine 03/01/2019 11:40 AM CDT MRI BRAIN WO CONTRAST Routine 03/01/2019 10:15 AM CDT POC GLUCOSE Routine 03/01/2019 8:44 AM CDT T4, FREE Routine 03/01/2019 4:00 AM CDT THYROID STIMULATING Routine 03/01/2019 HORMONE 4:00 AM CDT TOTAL IRON BINDING Routine 03/01/2019 CAPACITY 4:00 AM CDT FERRITIN LEVEL Routine 03/01/2019 4:00 AM CDT MAGNESIUM LEVEL Routine 03/01/2019 4:00 AM CDT IONIZED CALCIUM Routine 03/01/2019 4:00 AM CDT LIPID PANEL Routine 03/01/2019 4:00 AM CDT HOMOCYSTINE, PLASMA Routine 03/01/2019 4:00 AM CDT C-REACTIVE PROTEIN Routine 03/01/2019 4:00 AM CDT SEDIMENTATION RATE Routine 03/01/2019 4:00 AM CDT VITAMIN B12 LEVEL Routine 03/01/2019 4:00 AM CDT VITAMIN D 25 HYDROXY Routine 03/01/2019 LEVEL 4:00 AM CDT FOLATE RBC (GROUP TEST) Routine 03/01/2019 4:00 AM CDT HC COMPLETE BLD COUNT Routine 03/01/2019 W/AUTO DIFF 4:00 AM CDT POC GLUCOSE Routine 02/28/2019 8:56 PM CDT POC GLUCOSE Routine 02/28/2019 6:04 PM CDT POC GLUCOSE Routine 02/28/2019 12:09 PM CDT POC GLUCOSE Routine 02/28/2019 8:08 AM CDT POC GLUCOSE Routine 02/27/2019 4:50 PM CDT POC GLUCOSE Routine 02/27/2019 12:06 PM CDT POC GLUCOSE Routine 02/27/2019 7:26 AM CDT POC GLUCOSE Routine 02/26/2019 4:16 PM CDT POC GLUCOSE Routine 02/26/2019 11:35 AM CDT POC GLUCOSE Routine 02/26/2019 8:05 AM CDT CBC HEMOGRAM Routine 02/26/2019 6:00 AM CDT ESTIMATED GFR Routine 02/26/2019 4:00 AM CDT BASIC METABOLIC PANEL Routine 02/26/2019 4:00 AM CDT POC GLUCOSE Routine 02/25/2019 5:22 PM CDT POC GLUCOSE Routine 02/25/2019 12:25 PM CDT POC GLUCOSE Routine 02/25/2019 7:43 AM CDT CBC HEMOGRAM Routine 02/25/2019 6:20 AM CDT ESTIMATED GFR Routine 02/25/2019 4:00 AM CDT BASIC METABOLIC PANEL Routine 02/25/2019 4:00 AM CDT POC GLUCOSE Routine 02/24/2019 9:06 PM CDT ESTIMATED GFR Routine 02/24/2019 5:20 AM CDT BASIC METABOLIC PANEL Routine 02/24/2019 5:20 AM CDT PHOSPHORUS LEVEL Routine 02/24/2019 5:20 AM CDT MAGNESIUM LEVEL Routine 02/24/2019 5:20 AM CDT HC COMPLETE BLD COUNT Routine 02/24/2019 W/AUTO DIFF 5:20 AM CDT POC GLUCOSE Routine 02/23/2019 4:34 PM CDT POC GLUCOSE Routine 02/23/2019 12:31 PM CDT POC GLUCOSE Routine 02/23/2019 8:03 AM CDT HC COMPLETE BLD COUNT Routine 02/23/2019 W/AUTO DIFF 5:00 AM CDT ESTIMATED GFR Routine 02/23/2019 12:00 AM CDT PHOSPHORUS LEVEL Routine 02/23/2019 12:00 AM CDT IONIZED CALCIUM Routine 02/23/2019 12:00 AM CDT MAGNESIUM LEVEL Routine 02/23/2019 12:00 AM CDT BASIC METABOLIC PANEL Routine 02/23/2019 12:00 AM CDT POC GLUCOSE Routine 02/22/2019 9:13 PM CDT XR KNEE 3 VW LEFT Routine 02/22/2019 6:26 PM CDT POC GLUCOSE Routine 02/22/2019 5:10 PM CDT CONSULT CARDIAC REHAB Routine 02/22/2019 PHASE 1 5:00 PM CDT HEMOGLOBIN & HEMATOCRIT Routine 02/22/2019 1:16 PM CDT POC GLUCOSE Routine 02/22/2019 11:31 AM CDT POC GLUCOSE Routine 02/22/2019 7:53 AM CDT XR CHEST 1 VW PORTABLE Routine 02/22/2019 6:50 AM CDT HEMOGLOBIN & HEMATOCRIT STAT 02/22/2019 5:39 AM CDT POC GLUCOSE Routine 02/22/2019 3:56 AM CDT ESTIMATED GFR Routine 02/22/2019 1:22 AM CDT PROTHROMBIN TIME WITH INR Routine 02/22/2019 1:22 AM CDT PARTIAL THROMBOPLASTIN Routine 02/22/2019 TIME (PTT) 1:22 AM CDT PHOSPHORUS LEVEL Routine 02/22/2019 1:22 AM CDT MAGNESIUM LEVEL Routine 02/22/2019 1:22 AM CDT IONIZED CALCIUM Routine 02/22/2019 1:22 AM CDT CBC HEMOGRAM Routine 02/22/2019 1:22 AM CDT BASIC METABOLIC PANEL Routine 02/22/2019 1:22 AM CDT POC GLUCOSE Routine 02/21/2019 11:52 PM CDT US DUPLEX VENOUS LOWER Routine 02/21/2019 EXTREMITY LEFT 8:45 PM CDT POC GLUCOSE Routine 02/21/2019 7:57 PM CDT POTASSIUM LEVEL STAT 02/21/2019 7:36 PM CDT PHOSPHORUS LEVEL STAT 02/21/2019 7:36 PM CDT MAGNESIUM LEVEL STAT 02/21/2019 7:36 PM CDT POC GLUCOSE Routine 02/21/2019 3:47 PM CDT POC GLUCOSE Routine 02/21/2019 12:23 PM CDT POC GLUCOSE Routine 02/21/2019 11:54 AM CDT POC GLUCOSE Routine 02/21/2019 7:52 AM CDT ECG 12-LEAD Routine 02/21/2019 5:37 AM CDT XR ABDOMEN 1 VW PORTABLE Routine 02/21/2019 5:04 AM CDT XR CHEST 1 VW PORTABLE Routine 02/21/2019 5:04 AM CDT HEMOGLOBIN & HEMATOCRIT STAT 02/21/2019 2:47 AM CDT ESTIMATED GFR Routine 02/21/2019 2:03 AM CDT PHOSPHORUS LEVEL Routine 02/21/2019 2:03 AM CDT MAGNESIUM LEVEL Routine 02/21/2019 2:03 AM CDT BASIC METABOLIC PANEL Routine 02/21/2019 2:03 AM CDT IONIZED CALCIUM Routine 02/21/2019 2:03 AM CDT SMEAR REVIEW Routine 02/21/2019 1:54 AM CDT TYPE AND SCREEN Routine 02/21/2019 1:54 AM CDT HC COMPLETE BLD COUNT Routine 02/21/2019 W/AUTO DIFF 1:54 AM CDT POC GLUCOSE Routine 02/20/2019 11:54 PM CDT POC GLUCOSE Routine 02/20/2019 8:32 PM CDT POC GLUCOSE Routine 02/20/2019 11:44 AM CDT POC GLUCOSE Routine 02/20/2019 8:27 AM CDT ECG 12-LEAD Routine 02/20/2019 4:57 AM CDT XR CHEST 1 VW PORTABLE Routine 02/20/2019 4:41 AM CDT ESTIMATED GFR Routine 02/20/2019 1:19 AM CDT PHOSPHORUS LEVEL Routine 02/20/2019 1:19 AM CDT MAGNESIUM LEVEL Routine 02/20/2019 1:19 AM CDT BASIC METABOLIC PANEL Routine 02/20/2019 1:19 AM CDT IONIZED CALCIUM Routine 02/20/2019 1:19 AM CDT HC COMPLETE BLD COUNT Routine 02/20/2019 W/AUTO DIFF 1:09 AM CDT POC GLUCOSE Routine 02/19/2019 8:20 PM CDT HEMOGLOBIN & HEMATOCRIT STAT 02/19/2019 7:45 PM CDT POC GLUCOSE Routine 02/19/2019 3:47 PM CDT XR ABDOMEN 1 VW Routine 02/19/2019 1:11 PM CDT POC GLUCOSE Routine 02/19/2019 11:39 AM CDT XR ABDOMEN 1 VW PORTABLE STAT 02/19/2019 9:34 AM CDT HEMOGLOBIN & HEMATOCRIT STAT 02/19/2019 8:47 AM CDT POC GLUCOSE Routine 02/19/2019 7:35 AM CDT HEMOGLOBIN, SYRINGE Routine 02/19/2019 4:40 AM CDT ARTERIAL BLOOD GAS Routine 02/19/2019 4:40 AM CDT POC GLUCOSE Routine 02/19/2019 4:22 AM CDT ESTIMATED GFR Routine 02/19/2019 4:18 AM CDT BASIC METABOLIC PANEL Routine 02/19/2019 4:18 AM CDT MAGNESIUM LEVEL Routine 02/19/2019 4:18 AM CDT ECG 12-LEAD Routine 02/19/2019 3:03 AM CDT XR CHEST 1 VW PORTABLE Routine 02/18/2019 11:07 PM CDT IONIZED CALCIUM, ARTERIAL Routine 02/18/2019 11:05 PM CDT ESTIMATED GFR Routine 02/18/2019 11:05 PM CDT FIBRINOGEN Routine 02/18/2019 11:05 PM CDT LACTIC ACID LEVEL Routine 02/18/2019 11:05 PM CDT ARTERIAL BLOOD GAS Routine 02/18/2019 11:05 PM CDT PARTIAL THROMBOPLASTIN Routine 02/18/2019 TIME (PTT) 11:05 PM CDT PROTHROMBIN TIME WITH INR Routine 02/18/2019 11:05 PM CDT PHOSPHORUS LEVEL Routine 02/18/2019 11:05 PM CDT MAGNESIUM LEVEL Routine 02/18/2019 11:05 PM CDT HC COMPLETE BLD COUNT Routine 02/18/2019 W/AUTO DIFF 11:05 PM CDT BASIC METABOLIC PANEL Routine 02/18/2019 11:05 PM CDT CONSULT CARDIAC REHAB Routine 02/18/2019 PHASE 1 10:56 PM CDT POC GLUCOSE Routine 02/18/2019 10:51 PM CDT GLUCOSE LEVEL, SYRINGE STAT 02/18/2019 10:00 PM CDT IONIZED CALCIUM, ARTERIAL STAT 02/18/2019 10:00 PM CDT HEMOGLOBIN, SYRINGE STAT 02/18/2019 10:00 PM CDT POTASSIUM, SYRINGE STAT 02/18/2019 10:00 PM CDT SODIUM LEVEL, SYRINGE STAT 02/18/2019 10:00 PM CDT ARTERIAL BLOOD GAS, STAT 02/18/2019 CORRECTED 10:00 PM CDT GLUCOSE LEVEL, SYRINGE STAT 02/18/2019 9:23 PM CDT HEMOGLOBIN, SYRINGE STAT 02/18/2019 9:23 PM CDT IONIZED CALCIUM, ARTERIAL STAT 02/18/2019 9:23 PM CDT SODIUM LEVEL, SYRINGE STAT 02/18/2019 9:23 PM CDT POTASSIUM, SYRINGE STAT 02/18/2019 9:23 PM CDT ARTERIAL BLOOD GAS, STAT 02/18/2019 CORRECTED 9:23 PM CDT IONIZED CALCIUM, ARTERIAL STAT 02/18/2019 8:29 PM CDT HEMOGLOBIN, SYRINGE STAT 02/18/2019 8:29 PM CDT GLUCOSE LEVEL, SYRINGE STAT 02/18/2019 8:29 PM CDT POTASSIUM, SYRINGE STAT 02/18/2019 8:29 PM CDT ARTERIAL BLOOD GAS, STAT 02/18/2019 CORRECTED 8:29 PM CDT SODIUM LEVEL, SYRINGE STAT 02/18/2019 8:29 PM CDT PROTHROMBIN TIME WITH INR STAT 02/18/2019 7:34 PM CDT FIBRINOGEN STAT 02/18/2019 7:34 PM CDT HEMOGLOBIN & HEMATOCRIT STAT 02/18/2019 7:34 PM CDT PLATELET COUNT STAT 02/18/2019 7:34 PM CDT IONIZED CALCIUM, ARTERIAL STAT 02/18/2019 7:34 PM CDT GLUCOSE LEVEL, SYRINGE STAT 02/18/2019 7:34 PM CDT HEMOGLOBIN, SYRINGE STAT 02/18/2019 7:34 PM CDT POTASSIUM, SYRINGE STAT 02/18/2019 7:34 PM CDT SODIUM LEVEL, SYRINGE STAT 02/18/2019 7:34 PM CDT ARTERIAL BLOOD GAS, STAT 02/18/2019 CORRECTED 7:34 PM CDT GLUCOSE LEVEL, SYRINGE STAT 02/18/2019 6:34 PM CDT HEMOGLOBIN, SYRINGE STAT 02/18/2019 6:34 PM CDT IONIZED CALCIUM, ARTERIAL STAT 02/18/2019 6:34 PM CDT SODIUM LEVEL, SYRINGE STAT 02/18/2019 6:34 PM CDT POTASSIUM, SYRINGE STAT 02/18/2019 6:34 PM CDT ARTERIAL BLOOD GAS, STAT 02/18/2019 CORRECTED 6:34 PM CDT TRANSFUSE RED BLOOD CELLS Routine 02/18/2019 5:49 PM CDT IONIZED CALCIUM, ARTERIAL STAT 02/18/2019 5:33 PM CDT HEMOGLOBIN, SYRINGE STAT 02/18/2019 5:33 PM CDT GLUCOSE LEVEL, SYRINGE STAT 02/18/2019 5:33 PM CDT POTASSIUM, SYRINGE STAT 02/18/2019 5:33 PM CDT SODIUM LEVEL, SYRINGE STAT 02/18/2019 5:33 PM CDT ARTERIAL BLOOD GAS, STAT 02/18/2019 CORRECTED 5:33 PM CDT GLUCOSE LEVEL, SYRINGE STAT 02/18/2019 5:23 PM CDT HEMOGLOBIN, SYRINGE STAT 02/18/2019 5:23 PM CDT IONIZED CALCIUM, ARTERIAL STAT 02/18/2019 5:23 PM CDT SODIUM LEVEL, SYRINGE STAT 02/18/2019 5:23 PM CDT POTASSIUM, SYRINGE STAT 02/18/2019 5:23 PM CDT ARTERIAL BLOOD GAS, STAT 02/18/2019 CORRECTED 5:23 PM CDT TRANSFUSE RED BLOOD CELLS Routine 02/18/2019 4:52 PM CDT IONIZED CALCIUM, ARTERIAL STAT 02/18/2019 4:50 PM CDT GLUCOSE LEVEL, SYRINGE STAT 02/18/2019 4:50 PM CDT POTASSIUM, SYRINGE STAT 02/18/2019 4:50 PM CDT HEMOGLOBIN, SYRINGE STAT 02/18/2019 4:50 PM CDT ARTERIAL BLOOD GAS, STAT 02/18/2019 CORRECTED 4:50 PM CDT SODIUM LEVEL, SYRINGE STAT 02/18/2019 4:50 PM CDT TRANSFUSE RED BLOOD CELLS Routine 02/18/2019 4:25 PM CDT PA CATHETER Routine 02/18/2019 4:04 PM CDT CENTRAL LINE Routine 02/18/2019 4:04 PM CDT ARTERIAL LINE Routine 02/18/2019 3:38 PM CDT MD AN ELECTIVE Routine 02/18/2019 ENDOTRACHEAL AIRWAY 3:37 PM CDT IONIZED CALCIUM, ARTERIAL STAT 02/18/2019 3:20 PM CDT GLUCOSE LEVEL, SYRINGE STAT 02/18/2019 3:20 PM CDT HEMOGLOBIN, SYRINGE STAT 02/18/2019 3:20 PM CDT SODIUM LEVEL, SYRINGE STAT 02/18/2019 3:20 PM CDT POTASSIUM, SYRINGE STAT 02/18/2019 3:20 PM CDT ARTERIAL BLOOD GAS, STAT 02/18/2019 CORRECTED 3:20 PM CDT ESTIMATED GFR Routine 02/18/2019 6:20 AM CDT BASIC METABOLIC PANEL Routine 02/18/2019 6:20 AM CDT HC COMPLETE BLD COUNT Routine 02/18/2019 W/AUTO DIFF 4:25 AM CDT POC GLUCOSE Routine 02/17/2019 9:26 PM CDT PREPARE FRESH FROZEN Routine 02/17/2019 PLASMA 4:30 PM CDT PREPARE PLATELET PHERESIS Routine 02/17/2019 4:30 PM CDT PREPARE RBC Routine 02/17/2019 4:30 PM CDT OSMOLALITY, SERUM Routine 02/17/2019 4:30 PM CDT TYPE AND SCREEN Routine 02/17/2019 4:30 PM CDT AORTAGRAM ABDOMEN WITH Routine 02/17/2019 RUN OFF 7:54 AM CDT CV ARTERIOGRAMS Routine 02/17/2019 PERIPHERAL 7:54 AM CDT ESTIMATED GFR Routine 02/17/2019 3:51 AM CDT BASIC METABOLIC PANEL Routine 02/17/2019 3:51 AM CDT HC COMPLETE BLD COUNT Routine 02/17/2019 W/AUTO DIFF 3:20 AM CDT ECHOCARDIOGRAM 2D Routine 02/16/2019 COMPLETE W MMODE SPECTRAL 10:18 AM CDT COLOR DOPPLER (24063) VANCOMYCIN LEVEL, TROUGH STAT 02/16/2019 6:20 AM CDT ESTIMATED GFR Routine 02/16/2019 6:20 AM CDT HC COMPLETE BLD COUNT Routine 02/16/2019 W/AUTO DIFF 6:20 AM CDT BASIC METABOLIC PANEL Routine 02/16/2019 6:20 AM CDT ECG 12-LEAD Routine 02/15/2019 5:31 PM CDT XR CHEST 1 VW PORTABLE Routine 02/15/2019 12:14 PM CDT PROTHROMBIN TIME WITH INR Routine 02/15/2019 4:45 AM CDT CBC WITH PLATELET AND Routine 02/15/2019 DIFFERENTIAL 4:45 AM CDT ESTIMATED GFR Routine 02/15/2019 4:00 AM CDT BASIC METABOLIC PANEL Routine 02/15/2019 4:00 AM CDT POC GLUCOSE Routine 02/14/2019 10:34 PM CDT after 05/18/2018 Results * POC glucose (03/03/2019 7:48 AM CDT) Only the most recent of 48 results within the time period is included. [facility] POC glucose 113 (H) 65 - 99 mg/dL [place] Comment: BUDDHIST No Action Needed [facility] Notified RN Meter ID: [id number] Supervisor Sandblaster: Jeremiah Beltre Specimen Performing Organization Address [facility] Phone Number [facility] [place] [address] PATHOLOGY AND GENOMIC MEDICINE [address] * Phosphorus level (03/03/2019 4:00 AM CDT) Only the most recent of 8 results within the time period is included. [facility] Phosphorus 3.6 2.4 - 4.5 mg/dL [facility] Specimen Plasma specimen Performing Organization Address [facility] Phone Number [facility] [place] [address] PATHOLOGY AND [facility] MEDICINE [address] * Magnesium level (03/03/2019 4:00 AM CDT) Only the most recent of 11 results within the time period is included. [facility] Magnesium 1.8 1.6 - 2.4 mg/dL [facility] Specimen Plasma specimen Performing Organization Address [facility] [place] [facility] [place] [address] PATHOLOGY AND [facility] MEDICINE [address] * Hepatic function panel (03/03/2019 4:00 AM CDT) [facility] Albumin 2.5 (L) 3.5 - 5.0 g/dL [facility] Total bilirubin <0.2 0.0 - 1.2 mg/dL [facility] Bilirubin <0.2 0.0 - 0.3 mg/dL [place] direct [facility] Alkaline 86 35 - 104 U/L [place] phosphatase [facility] Protein 5.7 (L) 6.3 - 8.3 g/dL [place] Comment: [facility] 4.6-7.0 g/dL 1 week 4.4-7.6 g/dL 7 months-1year 5.1-7.3 g/dL 1-2 years5.6-7 .5 g/dL >3 years6.0-8 .0 g/dL 18-150 6.3-8.3 g/dL ALT 13 5 - 50 U/L [facility] AST 24 10 - 35 U/L [facility] Specimen Plasma specimen Performing Organization Address City/State/Zipcode Phone Number [facility] DEPARTMENT OF [address] [place] [address] PATHOLOGY AND GENOMIC MEDICINE [address] * Estimated GFR (03/02/2019 4:06 AM CDT) Only the most recent of 14 results within the time period is included. [facility] Estimated GFR >=90 mL/min/1.73 m2 [place] Comment: [facility] rpretation G1 >=90 Normal or high G2 60-89Mildly decreased [id number] Mildly to moderately decreased [id number] Moderately to severely decreased G4 15-29Severely decreased G5 <15Kidney failure The eGFR was calculated using the Chronic Kidney Disease Epidemiology Collaboration (CKD-EPI) equation. Interpretation is based on recommendations of the National Kidney Foundation-Kidney Disease Outcomes Quality Initiative (NKF-KDOQI) published in 2014. Specimen Plasma specimen Performing Organization Address City/[facility]/Zipcode Phone Number [facility] [place] [address] PATHOLOGY AND GENOMIC MEDICINE [address] * CBC with platelet and differential (03/02/2019 4:06 AM CDT) Only the most recent of 11 results within the time period is included. [facility] WBC 12.07 (H) 4.50 - 11.00 k/uL [facility] RBC 2.38 (L) 4.20 - 5.50 m/uL [facility] HGB 7.5 (L) 12.0 - 16.0 g/dL [facility] HCT 24.5 (L) 37.0 - 47.0 % [facility] MCV 102.9 (H) 82.0 - 100.0 fL [facility] MCH 31.5 27.0 - 34.0 pg [facility] MCHC 30.6 (L) 31.0 - 37.0 g/dL [facility] RDW - SD 57.7 (H) 37.0 - 55.0 fL [facility] MPV 10.0 8.8 - 13.2 fL [facility] Platelet count 458 (H) 150 - 400 k/uL [facility] Nucleated RBC 0.00 /100 WBC [facility] Neutrophils 78.1 (H) 39.0 - 69.0 % [facility] Lymphocytes 10.7 (L) 25.0 - 45.0 % [facility] Monocytes 6.8 0.0 - 10.0 % [facility] Eosinophils 3.1 0.0 - 5.0 % [facility] Basophils 0.6 0.0 - 1.0 % [facility] Immature 0.7Comment: "Immature 0.0 - 1.0 % [place] granulocytes granulocytes" (promyelocytes, BUDDHIST myelocytes, metamyelocytes) [facility] Specimen Blood Performing Organization Address City/[facility] Phone Number [facility] [place] [address] PATHOLOGY AND GENOMIC MEDICINE [address] * Basic metabolic panel (03/02/2019 4:06 AM CDT) Only the most recent of 14 results within the time period is included. Sodium 133 (L) 135 - 148 mEq/L [facility] Potassium 4.5 3.5 - 5.0 mEq/L [facility] Chloride 96 (L) 98 - 112 mEq/L [facility] CO2 26 24 - 31 mEq/L [facility] Anion gap 11@ANIO 7 - 15 mEq/L [facility] BUN 13 8 - 23 mg/dL [facility] Creatinine 0.39 (L) 0.50 - 0.90 mg/dL [facility] Glucose 102 (H) 65 - 99 mg/dL [facility] Calcium 8.4 (L) 8.8 - 10.2 mg/dL [facility] Specimen Plasma specimen Performing Organization Address City/[facility] Phone Number [facility] [place] [address] PATHOLOGY AND GENOMIC MEDICINE [address] * MRI Brain Wo Contrast (03/01/2019 10:15 AM CDT) Specimen Narrative Performed At [facility] EXAMINATION: MRI BRAIN WO CONTRAST CLINICAL HISTORY: NEURO DEFICITACUTESINGLEPROGRESSING, STROKE COMPARISON:None TECHNIQUE: Multiplanar and multisequence MRI imaging of the brain was obtained without contrast. FINDINGS: There is no evidence of acute infarct, intracranial hemorrhage or mass, hydrocephalus or midline shift. There is nonspecific enlargement of the ventricles and extra axial space greater in the anterior region. There are mild nonspecific white matter changes There is partial opacification of a few mastoid air cells. The sagittal images suggest cruciate ligament hypertrophy narrowing the upper cervical canal IMPRESSION: No acute findings in the brain or extra-axial region. 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 Nonspecific mastoiditis. Recommend correlation for recent versus old infection among other etiologies. [facility]-[id number] Procedure Note Interface, Radiology Results Incoming - 03/01/2019 10:32 AM CDT EXAMINATION: MRI BRAIN WO CONTRAST CLINICAL HISTORY: NEURO DEFICIT ACUTE SINGLE PROGRESSING, STROKE COMPARISON: None TECHNIQUE: Multiplanar and multisequence MRI imaging of the brain was obtained without contrast. FINDINGS: There is no evidence of acute infarct, intracranial hemorrhage or mass, hydrocephalus or midline shift. There is nonspecific enlargement of the ventricles and extra axial space greater in the anterior region. There are mild nonspecific white matter changes There is partial opacification of a few mastoid air cells. The sagittal images suggest cruciate ligament hypertrophy narrowing the upper cervical canal IMPRESSION: No acute findings in the brain or extra-axial region. 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 Nonspecific mastoiditis. Recommend correlation for recent versus old infection among other etiologies. [facility]-[id number] Performing Organization Address City/[facility] Phone Number [facility] [address] [place] [address] * Total iron binding capacity (03/01/2019 4:00 AM CDT) Iron level 11 (L) 37 - 145 ug/dL [facility] Iron binding 196 (L) 200 - 400 ug/dL [facility] % Saturation 5.6 (L) 15.0 - 38.0 % [facility] Specimen Plasma specimen Performing Organization Address City/[facility]/Zipcode Phone Number [facility] DEPARTMENT OF [address] [place] [address] PATHOLOGY AND GENOMIC MEDICINE [facility] [address] [place] [address] * Homocystine, plasma (03/01/2019 4:00 AM CDT) Pathologist [facility] Homocysteine 12.9 0.0 - 15.0 umol/L [place] Comment: BUDDHIST The risk for coronary vascular HOSPITAL disease increases progressively with homocysteine concentration.A 3.4 times greater risk is associated with a homocysteine concentration of greater than 15.8 umol/L as compared to a concentration below 14.1 umol/L. Specimen Plasma specimen Performing Organization Address City/State/Zipcode Phone Number [facility] DEPARTMENT [address] * Vitamin D 25 hydroxy level (03/01/2019 4:00 AM CDT) Pathologist [facility] Vitamin D, 14.2 (L) 30.0 - 150.0 ng/mL [place] 25-hydroxy Comment: BUDDHIST This assay reports the sum of HOSPITAL 25-hydroxy vitamin D3 and 25-hydroxy vitamin D2. Reference range: 0-17 years: Deficiency: less than 20ng/mL Optimum level: greater than or equal to 20 ng/mL. 18 years and older: Deficiency: less than 20ng/mL Insufficiency: 20-29 ng/mL Optimum Level: 30-80 ng/mL The assay reportable range is 3.4155.9 ng/mL. Levels higher than 150 ng/mL may be associated with toxicity. If toxicity is clinically suspected and the reported result is >155.9 ng/mL,contact lab for alternative methods to obtain a definitivelevel. If separate quantitation of 25-hydroxy vitamin D3 and 25-hydroxy vitamin D2 is needed, please contact lab for alternative methods. Specimen Blood Performing Organization Address City/State/Zipcode Phone Number [facility] DEPARTMENT OF [address] [place] [address] [address]UD[address] [place] [address] * Sedimentation rate (03/01/2019 4:00 AM CDT) Pathologist [facility] Sedimentation 82 (H) 0 - 20 mm/hr [facility] Specimen Blood Performing Organization Address City/State/Zipcode Phone Number [facility] DEPARTMENT OF [address] [place] [address] PATHOLOGY AND [facility] MEDICINE [address] * C-reactive protein (03/01/2019 4:00 AM CDT) CRP 9.33 (H) 0.00 - 0.50 mg/dL [facility] Specimen Plasma specimen Performing Organization Address City/[facility] Phone Number [facility] [place] [address] PATHOLOGY AND [facility] MEDICINE [address] * Thyroid stimulating hormone (03/01/2019 4:00 AM CDT) TSH 1.77 0.27 - 4.20 uIU/mL [facility] Specimen Plasma specimen Performing Organization Address [facility] Phone Number [facility] DEPARTMENT [address] * T4, free (03/01/2019 4:00 AM CDT) Pathologist [facility] T4, free 1.1 0.9 - 1.7 ng/dL [facility] Specimen Plasma specimen Performing Organization Address [facility] Phone Number [facility] DEPARTMENT [address] * Folate RBC (group test) (03/01/2019 4:00 AM CDT) [facility] RBC folate 1,419 499 - 1,504 ng/mL [facility] Specimen Blood Performing Organization Address [facility] Phone Number [facility] [place] [address] PATH[address] * Ferritin level (03/01/2019 4:00 AM CDT) [facility] Ferritin level 162 (H) 13 - 150 ng/mL [facility] Specimen Plasma specimen Performing Organization Address [facility] Phone Number [facility] DEPARTMENT [address] AND [address] * Vitamin B12 level (03/01/2019 4:00 AM CDT) Vitamin B12 306 211 - 946 pg/mL [place] Comment: BUDDHIST Significant overlap exists HOSPITAL between normal and deficiency states. However, most patients with deficiencies will have Serum B12 <200 pg/mL. Specimen Serum Performing Organization Address City/State/Zipcode Phone Number [facility] DEPARTMENT OF [address] [place] [address] PATHOLOGY [place] [address] HOSPITAL * Ionized calcium (03/01/2019 4:00 AM CDT) Only the most recent of 5 results within the time period is included. Pathologist [facility] pH 7.54 [facility] Ionized calcium 1.08 (L) 1.11 - 1.32 mmol/L [facility] Specimen Plasma specimen Performing Organization Address City/State/Zipcode Phone Number [facility] DEPARTMENT [address] [address] PATHOLOGY [place] [address] HOSPITAL * Lipid panel (03/01/2019 4:00 AM CDT) Cholesterol 95 <200 mg/dL [facility] Triglycerides 89 <150 mg/dL [facility] HDL cholesterol 44 >40 mg/dL [facility] LDL cholesterol 41Comment: Result obtained by <100 mg/dL [place] direct LDL measurement [facility] Lipid panel SeeBelow [place] interpretation Comment: BUDDHIST Total Cholesterol HOSPITAL (mg/dL) <200 Desirable 200-239Borderline -high >=240High Triglycerides (mg/dL) <150 Normal 150-199Borderline -high 200-499High >=500Very high HDL Cholesterol (mg/dL) <40Low (male) <40Low (female) LDL Cholesterol (mg/dL) <100 Optimal 100-129Near or above optimal 130-159Borderline -high 160-189High >=190Very high Risk Catergories that modify LDL goals. Risk Catergories LDL goal (mg/dL) CHD and CHD risk equivalent<100 (10-year risk >20%) Multiple (2+) risk factors <130 (10-year risk=<20%) 0-1 risk factors <160 (<10-year risk) Defining levels of lipids in metabolic syndrome Triglycerides >=150 mg/dL HDL Cholesterol Men <40 mg/dL Women <40 mg/dL Non-HDL cholesterol is a second target for therapy in persons with high triglycerides (>=200 mg/dL) Specimen Plasma specimen Performing Organization Address City/[facility] Phone Number [facility] DEPARTMENT [address] [place] [address] PATHOLOGY AND GENOMIC MEDICINE [address] * CBC hemogram (02/26/2019 6:00 AM CDT) Only the most recent of 3 results within the time period is included. WBC 10.62 4.50 - 11.00 k/uL [facility] RBC 2.61 (L) 4.20 - 5.50 m/uL [facility] HGB 8.2 (L) 12.0 - 16.0 g/dL [facility] HCT 26.7 (L) 37.0 - 47.0 % [facility] MCV 102.3 (H) 82.0 - 100.0 fL [facility] MCH 31.4 27.0 - 34.0 pg [facility] MCHC 30.7 (L) 31.0 - 37.0 g/dL [facility] RDW - SD 55.3 (H) 37.0 - 55.0 fL [facility] MPV 9.8 8.8 - 13.2 fL [facility] Platelet count 368 150 - 400 k/uL [facility] Nucleated RBC 0.00 /100 WBC [facility] Specimen Blood Performing Organization Address [facility]/Zipcode Phone Number [facility] DEPARTMENT OF [address] [place] [address] PATHOLOGY AND GENOMIC MEDICINE [address] * XR Knee 3 Vw Left (02/22/2019 6:26 PM CDT) Specimen Narrative Performed At EXAMINATION: XR KNEE 3 VW LEFT [facility] INDICATION: Knee paininitial exam COMPARISON: None IMPRESSION: 3 views of the left knee were obtained. Diffuse osseous demineralization limits bone detail. Moderate narrowing of the medial femorotibial compartment with a probable osteochondral lesion of the central weightbearing surface. 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 Prepatellar soft tissue swelling or prepatellar bursitis. Small knee joint effusion with intra-articular bodies. Vascular calcifications and surgical clips in the popliteal fossa. [id number] Procedure Note Interface, Radiology Results Incoming - 02/22/2019 7:00 PM CDT EXAMINATION: XR KNEE 3 VW LEFT INDICATION: Knee pain initial exam COMPARISON: None IMPRESSION: 3 views of the left knee were obtained. Diffuse osseous demineralization limits bone detail. Moderate narrowing of the medial femorotibial compartment with a probable osteochondral lesion of the central weightbearing surface. 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 Prepatellar soft tissue swelling or prepatellar bursitis. Small knee joint effusion with intra-articular bodies. Vascular calcifications and surgical clips in the popliteal fossa. [id number] Performing Organization Address [facility] Cent[facility]ode [place] [address] * Hemoglobin & hematocrit (02/22/2019 1:16 PM CDT) Only the most recent of 6 results within the time period is included. HGB 7.6 (L) 12.0 - 16.0 g/dL [facility] HCT 23.9 (L) 37.0 - 47.0 % [facility] Specimen Blood Performing Organization Address [facility] Phone Number [facility] DEPARTMENT OF [address] [place] [address] PATHOLOGY AND [place] [address] HOSPITAL * XR Chest 1 Vw Portable (02/22/2019 6:50 AM CDT) Only the most recent of 5 results within the time period is included. Specimen Narrative Performed At EXAMINATION:XR CHEST 1 VW PORTABLE [facility] CLINICAL HISTORY:ICU ptstable with no clinical status changes COMPARISON:Yesterday IMPRESSION: The right IJ sheath and the NG tube have been removed. Better aeration of the lungs bilaterally. No detrimental change [id number] Procedure Note Interface, Radiology Results Incoming - 02/22/2019 7:32 AM CDT EXAMINATION: XR CHEST 1 VW PORTABLE CLINICAL HISTORY: ICU pt stable with no clinical status changes COMPARISON: Yesterday IMPRESSION: The right IJ sheath and the NG tube have been removed. Better aeration of the lungs bilaterally. No detrimental change [id number] Performing Organization Address City/[facility]/Zipcode Phone Number [facility] [address] [place] [address] * Partial thromboplastin time, activated (02/22/2019 1:22 AM CDT) Only the most recent of 2 results within the time period is included. PTT 28.1 23.0 - 36.0 sec [place] Comment: BUDDHIST PTT therapeutic range for HOSPITAL unfractionated heparin is 61.0-112.0 seconds which corresponds to Anti-Xa 0.3-0.7 U/ml. Specimen Blood Performing Organization Address City/State/Zipcode Phone Number [facility] DEPARTMENT OF [address] [place] [address] PATHOLOGY AND [facility] MEDICINE [address] * Prothrombin time with INR (02/22/2019 1:22 AM CDT) Only the most recent of 4 results within the time period is included. Prothrombin 13.7 11.5 - 14.5 sec [facility] INR 1.1 [place] Comment: BUDDHIST The International Normalized HOSPITAL Ratio (INR) is a therapeutic monitoring tool for patients who are stable on oral anticoagulant therapy. An INR of 2.0-3.0 is suggested for deep vein thrombosis/pulmonary embolism. Specimen Blood Performing Organization Address [facility] Phone Number [facility] DEPARTMENT OF [address] [place] [address] PATHOLOGY AND [facility] MEDICINE [address] * Us duplex venous lower extremity (02/21/2019 8:45 PM CDT) Specimen Narrative Performed At [facility] Vascular Ultrasound Laboratory Lower Extremity Venous Report [address] [place] [address] Pat.Name:JACQUELINE RADER Pat.ID:[id number] .Date: 02/21/2019Refer.MD:ALEKSANDAR ROBISON MD Exam Time: 8:01:00 PMStudy Type:LE Venous DOBAge:1945,73YSex: FEMALE Sonogrphr: Gianni Ruff, RVS, RCS Pat. Stat.:Inpatient Room:[address] TapeVol: NINA, CPT - 4: 97807 Echo Event ID:[id number] Order ID:[id number] Reason for Study:Left leg swelling or pain, DVT suspected. S/p Aortobifemoral bypass and left fem-pop bypass, endarterectomy of abdominal aorta , endarterectomy of right common profunda and superficial femoral arteries, endarterectomy of left common profunda and superficial femoral arteries, pericardial patch reconstruction of left femoral artery, pericardial patch reconstruction of right femoral artery on 02/18/19. Procedures:B-flow imaging, Grayscale/2D, Pulsed wave Doppler Race:C SUMMARY: DUPLEX SCAN OBSERVATIONS Deep VeinsSuperficial Veins RightLeft RightLeft GSV (prox) Normal CFV Normal Normal (above knee) Femoral Normal GSV (dist)Normal Profunda Normal (below knee) Popliteal Normal PT (prox) Not visualizedSSVNot Visualized PT (dist) Normal Peroneal Not Visualized Gastroc Normal RIGHT:Normal findings of the common femoral vein. LEFT: There is normal compressibility with no evidence of echogenic material noted within the lumen of the visualized veins. Color flow and Doppler signals are normal. There is a fem-pop bypass graft noted in the thigh with present color flow and Doppler signals. PRELIMINARY FINDINGS 1. No evidence of venous thrombosis of the visualized veins. 2. Patent left fem-pop bypass graft. PHYSICIAN INTERPRETATION Venous examination of the left lower extremity and right groin demonstrated no evidence of venous thrombosis in the visualized veins. Patent left fem-pop bypass graft. Signed 02/21/2019 10:03 PM Cristian Cota MD, RPVI Procedure Note Interface, Radiology Results In - 02/21/2019 10:03 PM CDT Vascular Ultrasound Laboratory Lower Extremity Venous Report [id number] [address] Pat.Name: JACQUELINE RADER.ID: [id number] St.Date: 02/21/2019 Refer.MD: ALEKSANDAR ROBISON MD Exam Time: 8:01:00 PM Study Type:LE Venous Age: 7 1945,73Y Sex: FEMALE Sonogrphr: Gianni Ruff, RVS, RCS Pat. Stat.:Inpatient Room: [facility] WT9 [id number] Tape Vol: , CPT - 4: 40459 Echo Event ID:[id number] Order ID: [id number] Reason for Study:Left leg swelling or pain, DVT suspected. S/p Aortobifemoral bypass and left fem-pop bypass, endarterectomy of abdominal aorta , endarterectomy of right common profunda and superficial femoral arteries, endarterectomy of left common profunda and superficial femoral arteries, pericardial patch reconstruction of left femoral artery, pericardial patch reconstruction of right femoral artery on 02/18/19. Procedures:B-flow imaging, Grayscale/2D, Pulsed wave Doppler Race: C SUMMARY: DUPLEX SCAN OBSERVATIONS Deep Veins Superficial Veins Right Left Right Left GSV (prox) Normal CFV Normal Normal (above knee) Femoral Normal GSV (dist) Normal Profunda Normal (below knee) Popliteal Normal PT (prox) Not visualized SSV Not Visualized PT (dist) Normal Peroneal Not Visualized Gastroc Normal RIGHT: Normal findings of the common femoral vein. LEFT: There is normal compressibility with no evidence of echogenic material noted within the lumen of the visualized veins. Color flow and Doppler signals are normal. There is a fem-pop bypass graft noted in the thigh with present color flow and Doppler signals. PRELIMINARY FINDINGS 1. No evidence of venous thrombosis of the visualized veins. 2. Patent left fem-pop bypass graft. PHYSICIAN INTERPRETATION Venous examination of the left lower extremity and right groin demonstrated no evidence of venous thrombosis in the visualized veins. Patent left fem-pop bypass graft. Signed 02/21/2019 10:03 PM Cristian Cota MD, RPVI Performing Organization Address City/State/Zipcode Phone Number [facility] [address] [place] [address] * Potassium level (02/21/2019 7:36 PM CDT) Potassium 3.1 (L) 3.5 - 5.0 mEq/L [facility] Specimen Plasma specimen Performing Organization Address City/State/Zipcode Phone Number [facility] DEPARTMENT OF [address] [place] [address] PATHOLOGY AND GENOMIC MEDICINE [facility] [address] [place] [address] * ECG 12 lead (02/21/2019 5:37 AM CDT) Only the most recent of 4 results within the time period is included. Ventricular 81 [facility] MUSE rate Atrial rate 81 [facility] MUSE MD interval 130 [facility] MUSE QRSD interval 82 [facility] MUSE QT interval 370 [facility] MUSE QTC interval 429 [facility] MUSE P axis 1 58 [facility] MUSE QRS axis 1 41 [facility] MUSE T wave axis 57 [facility] MUSE EKG impression Normal sinus rhythm-Low [facility] MUSE voltage QRS-Borderline ECG-In automated comparison with ECG of 20-FEB-2019 04:57,-Nonspecific T wave abnormality now evident in Anterior leads- Specimen Narrative Performed At Performing Organization Address City/State/Zipcode Phone Number [facility] MUSE [address] [place] [address] * XR Abdomen 1 Vw Portable (02/21/2019 5:04 AM CDT) Only the most recent of 2 results within the time period is included. Specimen Narrative Performed At EXAMINATION:XR ABDOMEN 1 VW PORTABLE [facility] CLINICAL HISTORY: 73 years 1945 Increase in NGT output COMPARISON:02/19/2019 IMPRESSION: 1.There are laparotomy corey and surgical clips within each groin. Nasogastric tube terminates in the region of the gastric antrum. Fritz catheter over the pelvis. 2.Bowel gas pattern is nonobstructive. Air and feces are present within the colon and rectum. No dilated air-filled loops of small bowel. 3.No plain film evidence of free air. [facility]-[id number] Procedure Note Interface, Radiology Results Incoming - 02/21/2019 7:20 AM CDT EXAMINATION: XR ABDOMEN 1 VW PORTABLE CLINICAL HISTORY: 73 years 1945 Increase in NGT output COMPARISON: 02/19/2019 IMPRESSION: 1. There are laparotomy corey and surgical clips within each groin. Nasogastric tube terminates in the region of the gastric antrum. Fritz catheter over the pelvis. 2. Bowel gas pattern is nonobstructive. Air and feces are present within the colon and rectum. No dilated air-filled loops of small bowel. 3. No plain film evidence of free air. [facility]-[id number] Performing Organization Address City/[facility]/[place] [address] * Smear review (02/21/2019 1:54 AM CDT) Platelet slide Lucy adequate [facility] Anisocytosis Moderate [facility] Polychromasia Moderate [facility] Ovalocytes Moderate [facility] Enlarged Moderate (A) [place] platelets [facility] Giant platelets Occasional [facility] Specimen Performing Organization Address [facility] Cent[facility]ode Phone Number [facility] DEPARTMENT OF [address] [place] [address] PATHOLOGY [place] [address] HOSPITAL * Type and screen (02/21/2019 1:54 AM CDT) Only the most recent of 2 results within the time period is included. ABO grouping O [facility] Rh type NEG [facility] Antibody screen NEG [place] (gel) [facility] Specimen Blood Performing Organization Address [facility] Centercode Phone Number [facility] DEPARTMENT OF [address] [place] [address] PATHOLOGY AND GENOMIC MEDICINE [address] * XR Abdomen 1 Vw (02/19/2019 1:11 PM CDT) Specimen Narrative Performed At Examination:[facility] Clinical history:"ng position" Comparison: 02/19/2019 IMPRESSION:The bowel gas pattern is nonspecific.There is no evidence of acute disease within the imaged portions of both lung bases. The imaged bones appear to be degenerative. Midline surgical corey are seen. Nasogastric tube seen with its tip in the distal stomach. [facility]-[id number] Procedure Note Interface, Radiology Results Incoming - 02/19/2019 1:22 PM CDT Examination: XR ABDOMEN 1 VW Clinical history: "ng position" Comparison: 02/19/2019 IMPRESSION: The bowel gas pattern is nonspecific. There is no evidence of acute disease within the imaged portions of both lung bases. The imaged bones appear to be degenerative. Midline surgical corey are seen. Nasogastric tube seen with its tip in the distal stomach. [facility]-[id number] Performing Organization Address City/[facility]/[place] [address] * Hemoglobin, syringe (02/19/2019 4:40 AM CDT) Only the most recent of 10 results within the time period is included. Hemoglobin, 8.2 (L) 12.0 - 16.0 g/dL [facility] Specimen Blood Performing Organization Address [facility] Phone Number [facility] [place] [address] PATHOLOG[address] * Arterial blood gas (02/19/2019 4:40 AM CDT) Only the most recent of 2 results within the time period is included. pH, arterial 7.38 7.35 - 7.45 [facility] pCO2, arterial 36 35 - 45 mmHg [facility] pO2, arterial 185 (H) 80 - 90 mmHg [facility] Bicarbonate, 20.9 (L) 21.0 - 28.0 mmol/L [facility] Base excess, -3 (L) -2 - 2 mEq/L [facility] O2 saturation, 100 95 - 100 % [facility] Specimen Blood Performing Organization Address City/[facility]oca Phone Number [facility] [place] [address] PATHOLOGY [address] * Ionized calcium, arterial (02/18/2019 11:05 PM CDT) Only the most recent of 10 results within the time period is included. Ionized 1.26 1.11 - 1.32 mmol/L [place] calcium, BUDDHIST arterial [facility] Specimen Blood Performing Organization Address City/[facility] Centercode Phone Number [facility] [place] [address] PATHOLOGY AND [facility] MEDICINE [address] * Fibrinogen (02/18/2019 11:05 PM CDT) Only the most recent of 2 results within the time period is included. Fibrinogen 230 200 - 450 mg/dL [facility] Specimen Blood Performing Organization Address City/[facility]ode Phone Number [facility] [place] [address] PATHOLOGY AND [facility] MEDICINE [address] * Lactic acid level (02/18/2019 11:05 PM CDT) Lactic acid 1.1 0.5 - 2.2 mmol/L [facility] Specimen Plasma specimen Performing Organization Address [facility] Phone Number [facility] [place] [address] PATHOLOGY [address] * Sodium level, syringe (02/18/2019 10:00 PM CDT) Only the most recent of 9 results within the time period is included. Sodium, syringe 133 (L) 135 - 148 mEq/L [facility] Specimen Blood Performing Organization Address [facility] Centercode Phone Number [facility] [place] [place] [address] PATHOLOG[address] * Potassium, syringe (02/18/2019 10:00 PM CDT) Only the most recent of 9 results within the time period is included. Potassium, 3.6 3.5 - 5.0 mEq/L [facility] Specimen Blood Performing Organization Address City/[facility]ercode Phone Number [facility] [place] [address] PATHOLOGY AND [facility] MEDICINE [address] * Glucose level, syringe (02/18/2019 10:00 PM CDT) Only the most recent of 9 results within the time period is included. Glucose, 141 (H) 65 - 99 mg/dL [place] syringe [facility] Specimen Blood Performing Organization Address City/[facility] Centercode Phone Number [facility] [place] [place] [address] PATHOLOGY AND [facility] MEDICINE [address] * Arterial blood gas, corrected (02/18/2019 10:00 PM CDT) Only the most recent of 9 results within the time period is included. pH, arterial 7.37 7.35 - 7.45 [facility] pCO2, arterial 38 35 - 45 mmHg [facility] pO2, arterial 346 (H) 80 - 90 mmHg [facility] Temperature, 36.0 Degrees C [place] Celsius [facility] O2 saturation, 100 95 - 100 % [facility] pH, arterial 7.39 [facility] pCO2, arterial 36 mmHg [facility] pO2, arterial 341 mmHg [facility] Base excess, -3 (L) -2 - 2 mEq/L [facility] Specimen Blood Performing Organization Address City/[facility]ode Phone Number [facility] DEPARTMENT [address] * Platelet count (02/18/2019 7:34 PM CDT) Platelet count 223 150 - 400 k/uL [facility] Specimen Performing Organization Address City/[facility] Phone Number [facility] [place] [address] PATH[address] * Transfuse RBC (02/18/2019 5:49 PM CDT) Only the most recent of 3 results within the time period is included. * PA catheter (02/18/2019 4:04 PM CDT) Narrative Performed At Juliane Ramires MD 02/18/20194:05 PM PA catheter Performed by: Juliane Ramires MD Authorized by: Rhianna Dinero MD Preprocedure: patient identified, IV checked, site and side verified, risks and benefits discussed, procedure verified, surgical consent complete, patient position confirmed, monitors and equipment checked and pre-op evaluation complete MSBT: antiseptic used, all elements of maximal sterile barrier technique followed, hand hygiene performed, cap/gown used by other personnel and solutions labeled Procedure details: PA Catheter Type:TYPE CUTTER PA Catheter Size:9 PA Catheter Side:Right PA Catheter Site:Internal jugular PA Catheter placed: PA Catheter placed without difficulty Waveform: PA Catheter wave confirmed Ports flushed: All ports flushed pre-procedure Balloon checked: Balloon checked prior to insertion Post-procedure: No arrhythmia: No arrhythmias noted Patient tolerance:Patient tolerated the procedure well with no immediate complications * Central line (02/18/2019 4:04 PM CDT) Narrative Performed At Juliane Ramires MD 02/18/20194:05 PM Central line Performed by: Juliane Ramires MD Authorized by: Rhianna Dinero MD Preprocedure:patient identified, IV checked, site and side verified, risks and benefits discussed, procedure verified, surgical consent complete, patient position confirmed, monitors and equipment checked and pre-op evaluation complete MSBT: antiseptic used during central venous catheter insertion, all elements of maximal sterile barrier technique followed, hand hygiene performed prior to central venous catheter insertion, cap/gown used by other personnel during central venous catheter insertion, solutions labeled and all ports not used during insertion clamped Indications: Indications:Central pressure monitoring and vascular access Anesthesia: Anesthesia:General Procedure details: Patient position:Trendelenburg Catheter Type:Double lumen Catheter Size:9 Fr Catheter Site: internal jugular vein Catheter site laterality:Right Ultrasound guidance used: Yes Ultrasound image saved: Yes Number of attempts:1 Successful placement: Yes Guidewire removal: Guidewire removal is confirmed Post-procedure: Post-procedure: line sutured, sterile dressing applied per protocol and ports flushed with saline Post-procedure:Blood cleaned with CHG Assessment:Blood return through all ports and free fluid flow Patient tolerance:Patient tolerated the procedure well with no immediate complications * Arterial line (02/18/2019 3:38 PM CDT) Narrative Performed At Juliane Ramires MD 02/18/20193:39 PM Arterial line Performed by: Juliane Ramires MD Authorized by: Jose J Coello MD Patient Location:OR Start Time:02/18/2019 3:00 PM Staff: Anesthesiologist:Jose J Coello MD Resident/LAY OUT AND DETAIL DRAFTER/AA:Juliane Ramires MD Pre-procedure: patient identified, IV checked, site and side verified, risks and benefits discussed, procedure verified, surgical consent complete, patient position confirmed, monitors and equipment checked and pre-op evaluation complete MSBT: antiseptic used, all elements of maximal sterile barrier technique followed, hand hygiene performed, cap/gown used by other personnel and solutions labeled Indications: Indications: hemodynamic monitoring Anesthesia: Anesthesia:General Procedure Details: Arterial Line placement:Placed post induction Line placement site:Radial Line placement side:Right Arterial line gauge:20 G Number of attempts:1 Ultrasound guidance used: No Post-procedure: Post-procedure:Sterile dressing applied Post procedure circulation, sensation, movement:Normal Patient tolerance:Patient tolerated the procedure well with no immediate complications * Airway (02/18/2019 3:37 PM CDT) Narrative Performed At Juliane Ramires MD 02/18/20193:38 PM Airway Date/Time: 02/18/2019 3:00 PM Performed by: Juliane Ramires MD Authorized by: Jose J Coello MD Location:OR Urgency:Elective Difficult Airway: No Anesthesiologist:Jose J Coello MD Resident/LAY OUT AND DETAIL DRAFTER/AA:Juliane Ramires MD Performed by: resident/LAY OUT AND DETAIL DRAFTER/AA and anesthesiologist Preoxygenated with 100% O2: Yes C-spine Precautions Maintained Throughout: Yes Mask Ventilation:Easy mask Final Airway Type:Endotracheal airway Final Endotracheal Airway:ETT Cuffed: Yes Technique Used:Direct laryngoscopy Insertion Site:Oral Blade Type:Sultana Laryngoscope Blade/Videolaryngoscope Blade Size:2 ETT Size (mm):7.0 Cuff at minimum occlusion pressure: Yes Measured from:Lips ETT to Lips (cm):22 Placement Verified by: CO2 detection and direct visualization Laryngoscopic view:Grade I - full view of glottis Rapid Sequence Induction (RSI): No Modified RSI: No Number of Attempts at Approach:1 * Prepare fresh frozen plasma, 3 Units (02/17/2019 4:30 PM CDT) Product name Thawed Plasma [facility] Unit number [id number] [facility] Product code [id number] [facility] Dispense status Returned to BB not transfused [facility] Blood [id number] [place] expiration date [facility] Blood type code 5100 [facility] Blood type O POSITIVE [facility] Product name Thawed Plasma [facility] Unit number [id number] [facility] Product code [id number] [facility] Dispense status Returned to BB not transfused [facility] Blood [id number] [place] expiration [facility] Blood type code 5100 [facility] Blood type O POSITIVE [facility] Specimen Blood Performing Organization Address City/State/Zipcode Phone Number [facility] DEPARTMENT OF [address] [place] [address] PATHOLOGY AND GENOMIC MEDICINE [address] * Prepare RBC, 3 Units (02/17/2019 4:30 PM CDT) Product name Apheresis Red Cell AS3 #2 LR [facility] Unit number [id number] [facility] Product code [id number] [facility] Dispense status Returned to BB not transfused [facility] Blood [id number] [place] expiration [facility] Blood type code 9500 [facility] Blood type O NEGATIVE [facility] Product name Apheresis Red Cell AS3 #1 LR [facility] Unit number [id number] [facility] Product code [id number] [facility] Dispense status Returned to BB not transfused [facility] Blood [id number] [place] expiration [facility] Blood type code 9500 [facility] Blood type O NEGATIVE [facility] Product name Red Blood Cells -1, Leukored [facility] Unit number [id number] [facility] Product code [id number] [facility] Dispense status Transfused [facility] Blood [id number] [place] expiration [facility] Blood type code 9500 [facility] Blood type O NEGATIVE [facility] Product name Red Blood Cells -1, Leukored [facility] Unit number [id number] [facility] Product code [id number] [facility] Dispense status Returned to BB not transfused [facility] Blood [id number] [place] expiration date [facility] Blood type code 9500 [facility] Blood type O NEGATIVE [facility] Product name Apher Red Cell AS3 #1 LR/IRR [facility] Unit number [id number] [facility] Product code [id number] [facility] Dispense status Transfused [facility] Blood [id number] [place] expiration date [facility] Blood type code 9500 [facility] Blood type O NEGATIVE [facility] Product name Red Cells AS1 Leukored Irrad [facility] Unit number [id number] [facility] Product code [id number] [facility] Dispense status Transfused [facility] Blood [id number] [place] expiration date [facility] Blood type code 9500 [facility] Blood type O NEGATIVE [facility] Product name Red Blood Cells -1, Leukored [facility] Unit number [id number] [facility] Product code [id number] [facility] Dispense status Returned to BB not transfused [facility] Blood [id number] [place] expiration [facility] Blood type code 9500 [facility] Blood type O NEGATIVE [facility] Product name Red Blood Cells -1, Leukored [facility] Unit number [id number] [facility] Product code [id number] [facility] Dispense status Returned to BB not transfused [facility] Blood [id number] [place] expiration [facility] Blood type code 9500 [facility] Blood type O NEGATIVE [facility] Product name Red Blood Cells -1, Leukored [facility] Unit number [id number] [facility] Product code [id number] [facility] Dispense status Returned to BB not transfused [facility] Blood [id number] [place] expiration [facility] Blood type code 9500 [facility] Blood type O NEGATIVE [facility] Product name Apheresis Red Cell AS3 #1 LR [facility] Unit number [id number] [facility] Product code [id number] [facility] Dispense status Returned to BB not transfused [facility] Blood [id number] [place] expiration date [facility] Blood type code 9500 [facility] Blood type O NEGATIVE [facility] Specimen Blood Performing Organization Address City/[facility]ode Phone Number [facility] DEPARTMENT OF [address] [place] [address] PATHOLOGY AND GENOMIC MEDICINE [address] * Osmolality, serum (02/17/2019 4:30 PM CDT) Osmolality 276 275 - 295 mOsm/kg [facility] Specimen Blood Performing Organization Address [facility]/Zipcode Phone Number [facility] DEPARTMENT OF [address] [place] [address] PATHOLOGY AND GENOMIC MEDICINE [address] * Cv invasive peripheral vascular procedure (02/17/2019 7:54 AM CDT) Specimen Narrative Performed At [facility] PROCEDURE: Abdominal angiogram with runoffs. 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.There was pretty much 90% lesion at the ostium of the iliac.The mid iliac appeared to be a BAGGAGE CHECKER with a large collateral branch bridging down to the common femoral artery on the left.On the left, the common femoral artery continued down about midway where it became the superficial femoral artery where it occluded completely.There was some reconstitution of the popliteal area.There was a profunda femoris that was severely diseased as well, but did provide some collateral branches to the distal vessel.Her right iliac was severely diseased as well, appeared to be very tight, especially in the external iliac artery.The superficial femoral artery appeared to be occluded as well.We stopped at this point because I think in the future, she is going to need a aortobifemoral with a fem-pop on the left at least for limb salvage. Performing Organization Address [facility]/Zipcode Phone Number [facility] [address] [place] [address] * Echocardiogram complete w contrast and 3D if needed (02/16/2019 10:18 AM CDT) Specimen Narrative Performed At [facility] Echocardiography Report [id number] [facility] [address] [facility] [address], [place] [address] Pat.Name:JACQUELINE RADER.ID:[id number] .Date: 02/16/2019 Refer.MD:ALEKSANDAR ROBISON MD Exam Time: 9:26:00 AMStudy Type:Routine Echo Height:60inWeight:113.76 lb BSA: 1.47 m2 DOBAge:1945,73Y Sex: FEMALEBP:149/64 HR:66 bpmSonogrphr: Benito Damon [facility] Pat. Stat.:Inpatient Room:[address] Study Status:Final Echo Event ID:[id number] Order ID:[id number] Reason for Study:Hypertension - Initial eval of suspected hypertensive heart disease. Pre-op Vascular surgery Procedures:2D Echo, Colorflow Doppler, 3D Echo, Strain Race:C FINDINGS: LV: LV size is normal. Normal LV global longitudinal strain (-19%).LV EF is normal. Overall wall motion is normal. RV: RV size is normal. RV systolic function is normal. LA: LA volume is normal. RA: RA size is normal. AO: Aortic root diameter is normal. SEBASTIÁN: No pericardial effusion. AV: Moderate thickening and calcification of AV leaflets. Mild aorticvalve stenosis. Estimated mean aortic valve gradient 10mmHg with a valve area of 1.6 cm2. MV: Mild thickening of mitral leaflets. Mild mitral annular calcification. PV: Pulmonic valve not well seen. TV: No structural TV abnormalities noted. Childers: LV relaxation is impaired. LV filling pressure is normal. Hepaticvein pressure is normal, RA pressure < 5mmHg. Other:Insufficient TR jet to estimate PA systolic pressure. MEASUREMENTS: 2D Parasternal [place] [facility] LVIDd3.1 cmIndex2.1 cm/m Ao An1.1 cm LVIDs1.9 cmAo Rtd 3 cm Index2 cm/m LV%fs 39.3 % LV Mass 99.7 g(87-129) IVSd 1 cmLVM Index 67.8 g/m2 LVPWd1.1 cmRWT0.7 LA Ds2.9 cmLVOT 1.9 cm LA Sng Plane LA Area 16.7 cm2(8.8-23.4) LA Vol45.8 ml Index31.1 ml/m LA LngAx 6.3 cm RA Sng Plane RA Area 13.8 cm2(8.3-19.5) RA Vol30.6 ml Index20.8 ml/m RA LngAx 5.3 cm DOPPLER AV For Flow/[place] AV pkVel 230.3 cm/s (100-170) AV AC/ET 0.2 AV mnVel 143.6 cm/Jimmy TVI44.2 cm AV pkPG 21.2 mmHgAVpkAcRt 4786.5 cm/s2 AV Mean G 10 mmHgAV UvBl918 cm/s2 AV AC 73 msec (83-118) AV Area1.6 cm2(3-5) AV ET308 msec LVOT For Flow LVOT Area2.8 cm2 LVOT SV 69.4 ml YFZBggDgd124.4 cm/sHR59.1 bpm LVOTpkPG 6.8 mmHgLVOT CO4.1 l/min LVOTmnPG 3 mmHgLVOT CI2.8 l/m/m2 LVOT TVI24.5 cm Signed 02/16/2019 02:25 PM Moe Deras M.D. Procedure Note Interface, Radiology Results In - 02/16/2019 2:25 PM CDT Echocardiography Report [id number] [address] Pat.Name: JACQUELINE RADER.ID: [id number] .Date: 02/16/2019 Refer.MD: ALEKSANDAR ROBISON MD Exam Time: 9:26:00 AM Study Type:Routine Echo Height: 60in Weight: 113.76lb BSA: 1.47 m2 Age: 9 1945,73Y Sex: FEMALE BP: 149/64 HR: 66 bpm Sonogrphr: SHAWNA Garza Pat. Stat.:Inpatient Room: [address] Study Status:Final Echo Event ID:[id number] Order ID: [id number] Reason for Study:Hypertension - Initial eval of suspected hypertensive heart disease. Pre-op Vascular surgery Procedures:2D Echo, Colorflow Doppler, 3D Echo, Strain Race: C FINDINGS: LV: LV size is normal. Normal LV global longitudinal strain (-19%). LV EF is normal. Overall wall motion is normal. RV: RV size is normal. RV systolic function is normal. LA: LA volume is normal. RA: RA size is normal. AO: Aortic root diameter is normal. SEBASTIÁN: No pericardial effusion. AV: Moderate thickening and calcification of AV leaflets. Mild aortic valve stenosis. Estimated mean aortic valve gradient 10 mmHg with a valve area of 1.6 cm2. MV: Mild thickening of mitral leaflets. Mild mitral annular calcification. PV: Pulmonic valve not well seen. TV: No structural TV abnormalities noted. Childers: LV relaxation is impaired. LV filling pressure is normal. Hepatic vein pressure is normal, RA pressure < 5mmHg. Other: Insufficient TR jet to estimate PA systolic pressure. MEASUREMENTS: 2D Parasternal [facility] LVIDd 3.1 cm Index 2.1 cm/m Ao An 1.1 cm LVIDs 1.9 cm Ao Rtd 3 cm Index 2 cm/m LV%fs 39.3 % LV Mass 99.7 g (87-129) IVSd 1 cm LVM Index 67.8 g/m2 LVPWd 1.1 cm RWT 0.7 LA Ds 2.9 cm LVOT 1.9 cm LA Sng Plane LA Area 16.7 cm2 (8.8-23.4) LA Vol 45.8 ml Index 31.1 ml/m LA LngAx 6.3 cm RA Sng Plane RA Area 13.8 cm2 (8.3-19.5) RA Vol 30.6 ml Index 20.8 ml/m RA LngAx 5.3 cm DOPPLER AV For Flow/[place] AV pkVel 230.3 cm/s (100-170) AV AC/ET 0.2 AV mnVel 143.6 cm/s AV TVI 44.2 cm AV pkPG 21.2 mmHg AVpkAcRt 4786.5 cm/s2 AV Mean G 10 mmHg AV DeRt 748 cm/s2 AV AC 73 msec (83-118) AV Area 1.6 cm2 (3-5) AV ET 308 msec LVOT For Flow LVOT Area 2.8 cm2 LVOT SV 69.4 ml LVOTpkVel 130.4 cm/s HR 59.1 bpm LVOTpkPG 6.8 mmHg LVOT CO 4.1 l/min LVOTmnPG 3 mmHg LVOT CI 2.8 l/m/m2 LVOT TVI 24.5 cm Signed 02/16/2019 02:25 PM Moe Deras M.D. Performing Organization Address [facility] Phone Number [facility] [address] [place] [address] * Vancomycin level, trough (02/16/2019 6:20 AM CDT) Vancomycin, 14.2 10.0 - 20.0 ug/mL [place] trough Comment: [facility] Therapeutic Ranges: HOSPITAL Peak 30.0 - 40.0 ug/mL Itmehf78.0 - 20.0 ug/mL Specimen Serum Performing Organization Address [facility] Phone Number [facility] DEPARTMENT OF [address] [place] [address] PATHOLOGY AND GENOMIC MEDICINE [place] [facility] [address] [place] [id number] [facility] after 05/18/2018 Insurance Type Payer Benefit Subscriber ID Effective Phone Address Plan / Dates Group Medicare MEDICARE MEDICARE xxxxxxxxxxx [id number] [place], PART A AND resent [place] B O CIGNA CIGNA OPEN xxxxxxxxxxx 2016-P ACCESS/NET resent WORK Advance Directives For more information, please contact: [phone] Patient Shank Stitcher Explanation Type Date Recorded Advance Directives, Living Will and Medical Power of Turn Out
[2019-05-19] MEDS ORDERED: ONDANSETRON HCL INJ 2MG/ML 2ML 2 MG/ML VIAL IV ONE (19:59)
[2019-05-19] MEDS ORDERED: SODIUM CHLORIDE 0.9% 1000ML 1,000 ML IV STA ×2 (19:59→21:18)
[2019-05-19] MEDS ORDERED: MORPHINE SULFATE 2 MG/ML SYR 1ML IV ONE (19:59)
[2019-05-19] MEDS ORDERED: KETOROLAC TROMETHAMINE 30 MG/ML VIAL ONE (20:06)
[2019-05-19 20:07] LABS: BASOPHILS % 0.1 % (0.0-1.0); EOSINOPHILS % 0.1 % (0.0-6.0); HEMATOCRIT 35.6 % (34.2-44.1); HEMOGLOBIN 12.2 g/dL (12.0-16.0); LYMPHOCYTES % 3.1 % (18.0-39.1); MEAN CORPUSCULAR HGB CONC 34.3 g/dL (31-35); MEAN CORPUSCULAR VOLUME 93.4 fL (81-99); MONOCYTES # (AUTO) 1.7 (0.2-0.8); MONOCYTES % 5.6 % (4.4-11.3); PLATELET COUNT 434 x10e3/uL (140-360); RED BLOOD COUNT 3.81 x10e6/uL (3.6-5.1); RED CELL DISTRIBUTION WIDTH 15.1 % (11.7-14.4)
[2019-05-19] MEDS ORDERED: DIPHENHYDRAMINE HCL INJ 50 MG/ML VIAL ONE (20:07)
[2019-05-19] MEDS ORDERED: METOCLOPRAMIDE HCL 10 MG/2ML VIAL ONE (20:07)
[2019-05-19] MEDS ORDERED: SODIUM CHLORIDE 0.9% 1000ML 1,000 ML ONE ×2 (20:07→22:25)
[2019-05-19 20:19] LABS: BILIRUBIN,URINE MODERATE (NEGATIVE); CLARITY,URINE SL CLOUDY (CLEAR); KETONES,URINE 1+ (NEGATIVE); LEUKOCYTE ESTERASE ,URINE NEGATIVE (NEGATIVE); NITRITE,URINE NEGATIVE (NEGATIVE); PROTEIN,URINE DIPSTICK 1+ (NEGATIVE); URINE UROBILINOGEN 0.2 mg/dL (0.2 - 1)
[2019-05-19 20:20] LABS: COLOR,URINE STRAW (YELLOW)
[2019-05-19 20:22] LABS: ALBUMIN 2.2 g/dL (3.5-5.0); ALBUMIN/GLOBULIN RATIO 0.5 (0.8-2.0); ANION GAP 34.6 mmol/L (8-16); CALCIUM 7.7 mg/dL (8.4-10.2); CREATININE, SERUM 1.2 mg/dL (0.57-1.11); POTASSIUM 3.6 mmol/L (3.5-5.1)
[2019-05-19 20:32] LABS: BACTERIA,URINE MODERATE /HPF; EPITHELIAL CELLS,URINE FEW /LPF; WBC,URINE (MAN) 0-5 /HPF (0-5)
[2019-05-19] MEDS ORDERED: SODIUM CHLORIDE 0.9% 50ML 50 ML ONE (20:45)
[2019-05-19] MEDS ORDERED: IOPAMIDOL 370 MG/ML 200 ML INFUS..BTL INJ ONE (20:45)
[2019-05-19] MEDS ORDERED: HYDROMORPHONE 1MG/1ML INJ IV PRN (21:45)
[2019-05-19] MEDS ORDERED: LEVOFLOXACIN 750MG/D5W 150ML 150 ML IV ONE (21:45)
[2019-05-19] MEDS ORDERED: MORPHINE SULFATE 2 MG/ML SYR 1ML IV PRN (21:45)
--- NOTE | 2019-05-19 21:49 | Diagnostic Imaging Report ---
EXAMINATION: CT of the abdomen and pelvis with contrast. TECHNIQUE: Spiral CT images of the abdomen and pelvis were performed from the lung bases to the lesser trochanters after the intravenous administration of 100 cc Isovue-370. Coronal and sagittal reformatted images were obtained. COMPARISON: Pelvic CT 04/25/2019, CTA abdomen and pelvis 02/08/2019 CLINICAL HISTORY:Abdominal pain DISCUSSION: ABDOMEN/PELVIS: LOWER THORAX:3 mm nodule medial segment right lower lobe unchanged relative to CTA. HEPATOBILIARY: No focal hepatic lesions. No intra-or extrahepatic biliary ductal dilation. The gallbladder has been removed. SPLEEN: Multiple calcified splenic granulomata. PANCREAS: No focal masses or ductal dilatation. ADRENALS: No adrenal nodules. KIDNEYS/URETERS: Subcentimeter hypoattenuating lesion in the left kidney is too small to further characterize but likely represent a small cyst. No additional focal renal lesion. No hydronephrosis or calculus. PELVIC ORGANS/BLADDER: Urinary bladder is incompletely distended but otherwise unremarkable. Uterus is not identified and has presumably been removed. PERITONEUM/RETROPERITONEUM: No ascites. No pneumoperitoneum. LYMPH NODES: No pelvic sidewall, retroperitoneal, or mesenteric lymphadenopathy. VESSELS: Patent aortobifemoral bypass graft with deep and superficial femoral arterial flow on the left and deep femoral arterial flow on the right, unchanged compared to recent pelvic CT. As before, there is advanced atherosclerotic vascular disease of the [facility] upper abdominal aorta with short segment occlusion of the proximal SMA. The celiac origin is patent with mild atherosclerotic disease. The KHADAR origin is patent. GI TRACT: The stomach is massively distended with fluid contents. In addition there is diffuse small bowel dilatation to a maximum caliber of approximately 3.5 cm. Peripheral gas lucencies within the lumen of the ascending colon are felt to represent luminal gas encircling bowel contents rather than pneumatosis. There is no evidence of gas within adjacent mesenteric venous branches. There is a questionable transition point to decompressed distal ileum immediately deep to the anterior peritoneal surface as seen on series 2 image 53. Small hiatal hernia. BONES AND SOFT TISSUE: No osseous destructive lesions. Multilevel degenerative disc changes and facet arthropathy of the lumbar spine. Interval decrease in size of the previously described left groin postoperative seroma versus lymphocele, now measuring approximately 3 cm in greatest dimension. IMPRESSION: Findings suggestive of small bowel obstruction with a transition point in the distal ileum. No pneumoperitoneum. Gas lucencies in the proximal ascending colon are felt to be intraluminal rather than special service representative of pneumatosis intestinalis, though close clinical follow-up is warranted, particularly given the patient's reported substantial leukocytosis. Patent aortobifemoral bypass graft with interval decrease in size of left groin postoperative fluid collection. 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 Findings were discussed by telephone with Dr. Harrell of the emergency center at 9:45 PM 05/19/2019. Signed by: Dr. Joshua Augustin M.D. on 05/19/2019 9:46 PM
--- NOTE | 2019-05-19 21:53 | Diagnostic Imaging Report ---
Examination: Single AP view of the chest. COMPARISON: None. INDICATION: Nausea, vomiting, diarrhea DISCUSSION: The lungs are well-inflated. No focal airspace consolidation, pleural effusion, or pneumothorax. Atherosclerotic calcification of the thoracic aorta. Normal heart size. No pulmonary edema. No acute osseous abnormality. IMPRESSION: No acute cardiopulmonary abnormality. Signed by: Dr. Joshua Augustin M.D. on 05/19/2019 9:50 PM
[2019-05-19] MEDS ORDERED: VANCOMYCIN 1GM/NS 250 ML 250 ML IV ONE (22:00)
[2019-05-19] MEDS ORDERED: BENZOCAINE/TETRACAINE/BUTAMBEN AERO SPRAY 56 GM CAN TOP ONE (22:00)
--- NOTE | 2019-05-19 22:07 | NUR ---
12f NGT PLACED TO L NARE, PLACEMENT VERIFIED VIA AIR BOLUS BY 2 RNS. APPROX 1200 CCS OF THIN BROWN DRAINAGE NOTED TO CANNISTER. PT TOLERATED WELL
[2019-05-19] MEDS ORDERED: OLMESARTAN-HCTZ PO (22:11)
[2019-05-19] MEDS ORDERED: DICYCLOMINE HCL20 MG PO (22:11)
[2019-05-19] MEDS ORDERED: ATORVASTATIN CA20 MG PO (22:11)
[2019-05-19] MEDS ORDERED: DICLOFENAC SODI75 MG PO (22:11)
[2019-05-19] MEDS ORDERED: ASPIRIN EC81 MG PO (22:11)
[2019-05-19] MEDS: SODIUM CHLORIDE 0.9% 250ML IRRIG IR SCH (22:12)
--- OUTSIDE RECORDS SUMMARY | 2019-05-19 22:21 | XMS REPORT | Clinical Summary ---
Author Author [facility] Address Unknown Phone Unavailable Care Team Providers Care Biology Faculty Member Name Role Phone Cornelio Palm MD PCP [...] in 50 Infuse 1 g 0 mL ([id number]) into a venous catheter every 12 (twelve) [...] BYPASS USING 6mm PROPANTEN; ENDARTERECTOMIES OF RIGHT SPEEDBOAT OPERATOR, PFA, SFA, AND LEF SPEEDBOAT OPERATOR, PFA, SFA; PERICARDIAL PATCH RECONSTRUCTION OF RIGHT AND LEFT FEMORAL ARTERIES 02/18/2019 Surgery Cardiothoracic Surgery Daniel Rahman MD Cv arteriograms peripheral [32550 (CPT)] 02/17/2019 Surgery Procedural Cardiology Aleksandar Robison MD PAD (peripheral artery disease) (HCC) (Primary Dx); Pulmonary emphysema, unspecified emphysema type (HCC) 02/[facility]2019 [facility] - Encounter 03/03/2019 N/A 02/14/2019 Intake Access after 05/18/2018 Family History Medical History Relation Name Comments Asthma Father Westover's disease Sister Westover's disease Sister Relation Name Status Comments Father [...] / Lot Implanted Type Area Manufactur er [id number] / / Clip Ligtng Weck Hemoclip Plus W/ Medical N/A: N/A TELEFLEX Tape Ti Med - [id number] Clips for MEDICAL Implanted: 02/18/2019 at [facility] Internal HOSPITAL (Quantity not on file) Use 03/28/2022 [id number] / [id number] / [id number] Graft Vasclr Propaten Thn-Wl Strtch Vascular N/A: N/A W L GORE Rmvbl Ringed [id number] 6mm - Graft [id number] - [id number] Implanted: Qty: 1 on 02/18/2019 by Christoph Carreno MD at [facility] 11/18/2023 [id number] / / [id number] Bock Perph Vasclr Ptfe 1.2x10cm Vascular N/A: N/A BARD 1.65mm - [id number] Graft PERIPHERAL Implanted: Qty: 1 on 02/18/2019 by VASCULAR Christoph Carreno MD at [facility] 06/20/2023 [id number] / / [id number] Graft Vasclr Bifrctn Woven 40cm Vascular N/A: N/A ATRIUM 14mm 7mm Strl Hemashield - Graft MEDICAL [id number] Implanted: 02/18/2019 at [facility] (Quantity not on file) 07/28/2023 [id number] / / [id number] Patch Vasclr Perph 0.8x8cm Vascular N/A: N/A ABAD Vascu-Guard - [id number] Graft BIOSCIENCE Implanted: Qty: 1 on 02/18/2019 by Christoph Carreno MD at [facility] Procedures Comments Procedure Name Priority Date/Time Associated [...] ARTERIAL LINE Routine 02/18/2019 3:38 PM CDT KS AN ELECTIVE Routine 02/18/2019 ENDOTRACHEAL AIRWAY 3:37 [...] MMODE SPECTRAL 10:18 AM CDT COLOR DOPPLER (82311) VANCOMYCIN LEVEL, TROUGH STAT 02/16/2019 6:20 AM [...] results within the time period is included. [facility] POC glucose 113 (H) 65 - 99 mg/dL [place] Comment: [facility] No Action Needed [facility] Notified RN Meter ID: [id number] A/C Tech: Jeremiah Beltre Specimen Performing Organization Address [facility] Phone Number [facility] [place] [address] PATHOLOGY AND GENOMIC MEDICINE [address] * Phosphorus level (03/03/2019 4:00 AM CDT) Only the most recent of 8 results within the time period is included. [facility] Phosphorus 3.6 2.4 - 4.5 mg/dL [facility] Specimen Plasma specimen Performing Organization Address [facility] Phone Number [facility] [place] [address] [facility] MEDICINE [address] * Magnesium level (03/03/2019 4:00 AM CDT) Only the most recent of 11 results within the time period is included. [facility] Magnesium 1.8 1.6 - 2.4 mg/dL [facility] Specimen Plasma specimen Performing Organization Address [facility] Phone Number [facility] [place] [address] [facility]INE [address] * Hepatic function panel (03/03/2019 4:00 AM CDT) [facility] Albumin 2.5 (L) 3.5 - 5.0 g/dL [facility] Total bilirubin <0.2 0.0 - 1.2 mg/dL [facility] Bilirubin <0.2 0.0 - 0.3 mg/dL [place] direct [facility] Alkaline 86 35 - 104 U/L [place] phosphatase [facility] Protein 5.7 (L) 6.3 - 8.3 g/dL [place] Comment: [facility] 4.6-7.0 g/dL 1 week 4.4-7.6 g/dL 7 months-1year 5.1-7.3 g/dL 1-2 years5.6-7 .5 g/dL >3 years6.0-8 .0 g/dL 18-150 6.3-8.3 g/dL ALT 13 5 - 50 U/L [facility] AST 24 10 - 35 U/L [facility] Specimen Plasma specimen Performing Organization Address City/State/Zipcode Phone Number [facility] DEPARTMENT OF [address] [place] [address] PATHOLOGY AND GENOMIC MEDICINE [address] * Estimated GFR (03/02/2019 4:06 AM CDT) Only the most recent of 14 results within the time period is included. [facility] Estimated GFR >=90 mL/min/1.73 m2 [place] Comment: [facility] rpretation G1 >=90 Normal or high G2 60-89Mildly decreased [id number] Mildly to moderately decreased [id number] Moderately to severely decreased G4 15-29Severely decreased G5 <15Kidney failure The eGFR was calculated using the Chronic Kidney Disease Epidemiology Collaboration (CKD-EPI) equation. Interpretation is based on recommendations of the National Kidney Foundation-Kidney Disease Outcomes Quality Initiative (NKF-KDOQI) published in 2014. Specimen Plasma specimen Performing Organization Address City/[facility]/Zipcode Phone Number [facility] [place] [address] PATHOLOGY AND GENOMIC MEDICINE [address] * CBC with platelet and differential (03/02/2019 4:06 AM CDT) Only the most recent of 11 results within the time period is included. [facility] WBC 12.07 (H) 4.50 - 11.00 k/uL [facility] RBC 2.38 (L) 4.20 - 5.50 m/uL [facility] HGB 7.5 (L) 12.0 - 16.0 g/dL [facility] HCT 24.5 (L) 37.0 - 47.0 % [facility] MCV 102.9 (H) 82.0 - 100.0 fL [facility] MCH 31.5 27.0 - 34.0 pg [facility] MCHC 30.6 (L) 31.0 - 37.0 g/dL [facility] RDW - SD 57.7 (H) 37.0 - 55.0 fL [facility] MPV 10.0 8.8 - 13.2 fL [facility] Platelet count 458 (H) 150 - 400 k/uL [facility] Nucleated RBC 0.00 /100 WBC [facility] Neutrophils 78.1 (H) 39.0 - 69.0 % [facility] Lymphocytes 10.7 (L) 25.0 - 45.0 % [facility] Monocytes 6.8 0.0 - 10.0 % [facility] Eosinophils 3.1 0.0 - 5.0 % [facility] Basophils 0.6 0.0 - 1.0 % [facility] Immature 0.7Comment: "Immature 0.0 - 1.0 % [place] granulocytes granulocytes" (promyelocytes, [facility] myelocytes, metamyelocytes) [facility] Specimen Blood Performing Organization Address City/[facility] Hospitalconc Phone Number [facility] [place] [address] PATHOLOGY AND GENOMIC MEDICINE [address] * Basic metabolic panel (03/02/2019 4:06 AM CDT) Only the most recent of 14 results within the time period is included. Sodium 133 (L) 135 - 148 mEq/L [facility] Potassium 4.5 3.5 - 5.0 mEq/L [facility] Chloride 96 (L) 98 - 112 mEq/L [facility] CO2 26 24 - 31 mEq/L [facility] Anion gap 11@ANIO 7 - 15 mEq/L [facility] BUN 13 8 - 23 mg/dL [facility] Creatinine 0.39 (L) 0.50 - 0.90 mg/dL [facility] Glucose 102 (H) 65 - 99 mg/dL [facility] Calcium 8.4 (L) 8.8 - 10.2 mg/dL [facility] Specimen Plasma specimen Performing Organization Address City/[facility]code Phone Number [facility] [place] [address] PATHOLOGY AND GENOMIC MEDICINE [address] * MRI Brain Wo Contrast (03/01/2019 [...] recent versus old infection among other etiologies. [facility]-[id number] Procedure Note Interface, Radiology Results Incoming - [...] recent versus old infection among other etiologies. [facility]-[id number] Performing Organization Address City/[facility] Phone Number [facility] [address] [place] [address] * Total iron binding capacity (03/01/2019 4:00 AM CDT) Iron level 11 (L) 37 - 145 ug/dL [facility] Iron binding 196 (L) 200 - 400 ug/dL [facility] % Saturation 5.6 (L) 15.0 - 38.0 % [facility] Specimen Plasma specimen Performing Organization Address City/[facility]/Zipcode Phone Number [facility] DEPARTMENT OF [address] [place] [address] PATHOLOGY AND GENOMIC MEDICINE [facility] [address] [place] [address] * Homocystine, plasma (03/01/2019 4:00 AM CDT) Pathologist [facility] Homocysteine 12.9 0.0 - 15.0 umol/L [place] Comment: [facility] The risk for coronary vascular HOSPITAL disease increases progressively with homocysteine concentration.A 3.4 times greater risk is associated with a homocysteine concentration of greater than 15.8 umol/L as compared to a concentration below 14.1 umol/L. Specimen Plasma specimen Performing Organization Address City/State/Zipcode Phone Number [facility] DEPARTMENT [address] [facility] * Vitamin D 25 hydroxy level (03/01/2019 4:00 AM CDT) Pathologist [facility] Vitamin D, 14.2 (L) 30.0 - 150.0 ng/mL [place] 25-hydroxy Comment: [facility] This assay reports the sum of HOSPITAL [...] Blood Performing Organization Address City/State/Zipcode Phone Number [facility] DEPARTMENT OF [address] [place] [address] [facility] [address] [place] [address] * Sedimentation rate (03/01/2019 4:00 AM CDT) Pathologist [facility] Sedimentation 82 (H) 0 - 20 mm/hr [facility] Specimen Blood Performing Organization Address City/State/Zipcode Phone Number [facility] DEPARTMENT OF [address] [place] [address] [facility] MEDICINE [address] * C-reactive protein (03/01/2019 4:00 AM CDT) CRP 9.33 (H) 0.00 - 0.50 mg/dL [facility] Specimen Plasma specimen Performing Organization Address City/[facility]code Phone Number [facility] [place] [address] [facility]INE [address] * Thyroid stimulating hormone (03/01/2019 4:00 AM CDT) TSH 1.77 0.27 - 4.20 uIU/mL [facility] Specimen Plasma specimen Performing Organization Address [facility] Phone Number [facility] DEPARTMENT [address] * T4, free (03/01/2019 4:00 AM CDT) Pathologist [facility] T4, free 1.1 0.9 - 1.7 ng/dL [facility] Specimen Plasma specimen Performing Organization Address [facility] Phone Number [facility] DEPARTMENT [address] * Folate RBC (group test) (03/01/2019 4:00 AM CDT) [facility] RBC folate 1,419 499 - 1,504 ng/mL [facility] Specimen Blood Performing Organization Address [facility]code Phone Number [facility] [place] [address] PATHOLOGY [address] * Ferritin level (03/01/2019 4:00 AM CDT) [facility] Ferritin level 162 (H) 13 - 150 ng/mL [facility] Specimen Plasma specimen Performing Organization Address [facility]code Phone Number [facility] DEPARTMENT [address] * Vitamin B12 level (03/01/2019 4:00 AM CDT) Vitamin B12 306 211 - 946 pg/mL [place] Comment: [facility] Significant overlap exists HOSPITAL between normal and deficiency states. However, most patients with deficiencies will have Serum B12 <200 pg/mL. Specimen Serum Performing Organization Address City/State/Zipcode Phone Number [facility] DEPARTMENT OF [address] [place] [address] PATHOLOGY AND [place] [address] HOSPITAL * Ionized calcium (03/01/2019 4:00 AM CDT) Only the most recent of 5 results within the time period is included. Pathologist [facility] pH 7.54 [facility] Ionized calcium 1.08 (L) 1.11 - 1.32 mmol/L [facility] Specimen Plasma specimen Performing Organization Address City/State/Zipcode Phone Number [facility] DEPARTMENT [address] [address] PATHOLOGY AND [place] [address] HOSPITAL * Lipid panel (03/01/2019 4:00 AM CDT) Cholesterol 95 <200 mg/dL [facility] Triglycerides 89 <150 mg/dL [facility] HDL cholesterol 44 >40 mg/dL [facility] LDL cholesterol 41Comment: Result obtained by <100 mg/dL [place] direct LDL measurement [facility] Lipid panel SeeBelow [place] interpretation Comment: [facility] Total Cholesterol HOSPITAL (mg/dL) <200 Desirable 200-239Borderline [...] mg/dL) Specimen Plasma specimen Performing Organization Address City/[facility] Phone Number [facility] DEPARTMENT [address] [place] [address] PATHOLOGY AND GENOMIC MEDICINE [address] * CBC hemogram (02/26/2019 6:00 AM CDT) Only the most recent of 3 results within the time period is included. WBC 10.62 4.50 - 11.00 k/uL [facility] RBC 2.61 (L) 4.20 - 5.50 m/uL [facility] HGB 8.2 (L) 12.0 - 16.0 g/dL [facility] HCT 26.7 (L) 37.0 - 47.0 % [facility] MCV 102.3 (H) 82.0 - 100.0 fL [facility] MCH 31.4 27.0 - 34.0 pg [facility] MCHC 30.7 (L) 31.0 - 37.0 g/dL [facility] RDW - SD 55.3 (H) 37.0 - 55.0 fL [facility] MPV 9.8 8.8 - 13.2 fL [facility] Platelet count 368 150 - 400 k/uL [facility] Nucleated RBC 0.00 /100 WBC [facility] Specimen Blood Performing Organization Address [facility]/Zipcode Phone Number [facility] DEPARTMENT OF [address] [place] [address] PATHOLOGY AND GENOMIC MEDICINE [address] * XR Knee 3 Vw Left [...] and surgical clips in the popliteal fossa. [id number] Procedure Note Interface, Radiology Results Incoming - [...] and surgical clips in the popliteal fossa. [id number] Performing Organization Address [facility] [place] [address] * Hemoglobin & hematocrit (02/22/2019 1:16 PM CDT) Only the most recent of 6 results within the time period is included. HGB 7.6 (L) 12.0 - 16.0 g/dL [facility] HCT 23.9 (L) 37.0 - 47.0 % [facility] Specimen Blood Performing Organization Address [facility]code Phone Number [facility] DEPARTMENT OF [address] [place] [address] PATHOLOGY AND [place] [address] HOSPITAL * XR Chest 1 Vw Portable [...] of the lungs bilaterally. No detrimental change [id number] Procedure Note Interface, Radiology Results Incoming - 02/22/2019 7:32 AM CDT EXAMINATION: XR CHEST 1 VW PORTABLE CLINICAL HISTORY: ICU pt stable with no clinical status changes COMPARISON: Yesterday IMPRESSION: The right IJ sheath and the NG tube have been removed. Better aeration of the lungs bilaterally. No detrimental change [id number] Performing Organization Address City/[facility]/Zipcode Phone Number [facility] [address] [place] [address] * Partial thromboplastin time, activated (02/22/2019 1:22 AM CDT) Only the most recent of 2 results within the time period is included. PTT 28.1 23.0 - 36.0 sec [place] Comment: [facility] PTT therapeutic range for HOSPITAL unfractionated heparin is 61.0-112.0 seconds which corresponds to Anti-Xa 0.3-0.7 U/ml. Specimen Blood Performing Organization Address City/State/Zipcode Phone Number [facility] DEPARTMENT OF [address] [place] [address] [facility] MEDICINE [address] * Prothrombin time with INR (02/22/2019 1:22 AM CDT) Only the most recent of 4 results within the time period is included. Prothrombin 13.7 11.5 - 14.5 sec [facility] INR 1.1 [place] Comment: [facility] The International Normalized HOSPITAL Ratio (INR) is a therapeutic monitoring tool for patients who are stable on oral anticoagulant therapy. An INR of 2.0-3.0 is suggested for deep vein thrombosis/pulmonary embolism. Specimen Blood Performing Organization Address [facility] Phone Number [facility] DEPARTMENT OF [address] [place] [address] [facility] MEDICINE [address] * Us duplex venous lower extremity (02/21/2019 8:45 PM CDT) Specimen Narrative Performed At [facility] Vascular Ultrasound Laboratory Lower Extremity Venous Report [address] [place] [address] Pat.Name:JACQUELINE RADER Pat.ID:[id number] .Date: 02/21/2019Refer.MD:ALEKSANDAR ROBISON MD Exam Time: 8:01:00 PMStudy Type:LE Venous DOBAge:1945,73YSex: FEMALE Sonogrphr: Gianni Ruff, RVS, RCS Pat. Stat.:Inpatient Room:[address] TapeVol: NINA, CPT - 4: 65096 Echo Event ID:[id number] Order ID:[id number] Reason for Study:Left leg swelling or pain, [...] Vascular Ultrasound Laboratory Lower Extremity Venous Report [address] [address] Pat.Name: JACQUELINE RADER.ID: [id number] St.Date: 02/21/2019 Refer.MD: ALEKSANDAR ROBISON MD Exam Time: 8:01:00 PM Study Type:LE Venous Age: 7 1945,73Y Sex: FEMALE Sonogrphr: Gianni Ruff, RVS, RCS Pat. Stat.:Inpatient Room: [facility] WT9 0910A Tape Vol: , CPT - 4: 13275 Echo Event ID:[id number] Order ID: [id number] Reason for Study:Left leg swelling or pain, [...] Organization Address City/State/Zipcode Phone Number [facility] [address] [place] [address] * Potassium level (02/21/2019 7:36 PM CDT) Potassium 3.1 (L) 3.5 - 5.0 mEq/L [facility] Specimen Plasma specimen Performing Organization Address City/State/Zipcode Phone Number [facility] DEPARTMENT OF [address] [place] [address] PATHOLOGY AND GENOMIC MEDICINE [facility] [address] [place] [address] * ECG 12 lead (02/21/2019 5:37 AM CDT) Only the most recent of 4 results within the time period is included. Ventricular 81 [facility] MUSE rate Atrial rate 81 [facility] MUSE [place] interval 130 [facility] MUSE QRSD interval 82 [facility] MUSE QT interval 370 [facility] QTC interval 429 [facility] MUSE P axis 1 58 [facility] MUSE QRS axis 1 41 [facility] MUSE T wave axis 57 [facility] MUSE EKG impression Normal sinus rhythm-Low [facility] MUSE voltage QRS-Borderline ECG-In automated comparison with ECG of 20-FEB-2019 04:57,-Nonspecific T wave abnormality now evident in Anterior leads- Specimen Narrative Performed At Performing Organization Address City/State/Zipcode Phone Number [facility] MUSE [address] [place] [address] * XR Abdomen 1 Vw Portable (02/21/2019 [...] 3.No plain film evidence of free air. [facility]-[id number] Procedure Note Interface, Radiology Results Incoming - [...] No plain film evidence of free air. [facility]-[id number] Performing Organization Address City/[facility]/[place] [address] * Smear review (02/21/2019 1:54 AM CDT) Platelet slide Lucy adequate [facility] Anisocytosis Moderate [facility] Polychromasia Moderate [facility] Ovalocytes Moderate [facility] Enlarged Moderate (A) [place] platelets [facility] Giant platelets Occasional [facility] Specimen Performing Organization Address [facility] Phone Number [facility] DEPARTMENT OF [address] [place] [address] PATHOLOGY AND [place] [address] HOSPITAL * Type and screen (02/21/2019 1:54 AM CDT) Only the most recent of 2 results within the time period is included. ABO grouping O [facility] Rh type NEG [facility] Antibody screen NEG [place] (gel) [facility] Specimen Blood Performing Organization Address [facility] Phone Number [facility] DEPARTMENT OF [address] [place] [address] PATHOLOGY AND GENOMIC MEDICINE [address] * XR Abdomen 1 Vw (02/19/2019 1:11 PM CDT) Specimen Narrative Performed At Examination:XR ABDOMEN 1 VW [facility] Clinical history:"ng position" Comparison: 02/19/2019 IMPRESSION:The bowel gas pattern is nonspecific.There is no evidence of acute disease within the imaged portions of both lung bases. The imaged bones appear to be degenerative. Midline surgical corey are seen. Nasogastric tube seen with its tip in the distal stomach. [facility]-[id number] Procedure Note Interface, Radiology Results Incoming - [...] with its tip in the distal stomach. [facility]-[id number] Performing Organization Address City/[facility]/[place] [address] * Hemoglobin, syringe (02/19/2019 4:40 AM CDT) Only the most recent of 10 results within the time period is included. Hemoglobin, 8.2 (L) 12.0 - 16.0 g/dL [facility] Specimen Blood Performing Organization Address [facility] Phone Number [facility] [place] [address] PATHOLOGY [address] * Arterial blood gas (02/19/2019 4:40 AM CDT) Only the most recent of 2 results within the time period is included. pH, arterial 7.38 7.35 - 7.45 [facility] pCO2, arterial 36 35 - 45 mmHg [facility] pO2, arterial 185 (H) 80 - 90 mmHg [facility] Bicarbonate, 20.9 (L) 21.0 - 28.0 mmol/L [facility] Base excess, -3 (L) -2 - 2 mEq/L [facility] O2 saturation, 100 95 - 100 % [facility] Specimen Blood Performing Organization Address City/[facility] [facility] Phone Number [facility] [place] [address] PATH[address] * Ionized calcium, arterial (02/18/2019 11:05 PM CDT) Only the most recent of 10 results within the time period is included. Ionized 1.26 1.11 - 1.32 mmol/L [place] calcium, [facility] arterial [facility] Specimen Blood Performing Organization Address City/[facility] Phone Number [facility] [place] [address] [facility] [address] * Fibrinogen (02/18/2019 11:05 PM CDT) Only the most recent of 2 results within the time period is included. Fibrinogen 230 200 - 450 mg/dL [facility] Specimen Blood Performing Organization Address City/[facility] Phone Number [facility] [place] [address] [facility] [address] * Lactic acid level (02/18/2019 11:05 PM CDT) Lactic acid 1.1 0.5 - 2.2 mmol/L [facility] Specimen Plasma specimen Performing Organization Address [facility] Phone Number [facility] [place] [address] PATHOLOG[address] * Sodium level, syringe (02/18/2019 10:00 PM CDT) Only the most recent of 9 results within the time period is included. Sodium, syringe 133 (L) 135 - 148 mEq/L [facility] Specimen Blood Performing Organization Address [facility] Phone Number [facility] [place] [address] PATHOLOG[address] * Potassium, syringe (02/18/2019 10:00 PM CDT) Only the most recent of 9 results within the time period is included. Potassium, 3.6 3.5 - 5.0 mEq/L [facility] Specimen Blood Performing Organization Address City/[facility] Phone Number [facility] [place] [address] [facility] [address] * Glucose level, syringe (02/18/2019 10:00 PM CDT) Only the most recent of 9 results within the time period is included. Glucose, 141 (H) 65 - 99 mg/dL [place] syringe [facility] Specimen Blood Performing Organization Address City/[facility] Phone Number [facility] [place] [address] [facility] [address] * Arterial blood gas, corrected (02/18/2019 10:00 PM CDT) Only the most recent of 9 results within the time period is included. pH, arterial 7.37 7.35 - 7.45 [facility] pCO2, arterial 38 35 - 45 mmHg [facility] pO2, arterial 346 (H) 80 - 90 mmHg [facility] Temperature, 36.0 Degrees C [place] Celsius [facility] O2 saturation, 100 95 - 100 % [facility] pH, arterial 7.39 [facility] pCO2, arterial 36 mmHg [facility] pO2, arterial 341 mmHg [facility] Base excess, -3 (L) -2 - 2 mEq/L [facility] Specimen Blood Performing Organization Address City/[facility] Phone Number [facility] [address] * Platelet count (02/18/2019 7:34 PM CDT) Platelet count 223 150 - 400 k/uL [facility] Specimen Performing Organization Address City/[facility] Phone Number [facility] [place] [address] PATH[address] * Transfuse RBC (02/18/2019 5:49 PM [...] and solutions labeled Procedure details: PA Catheter Type:GROCERY SUPERVISOR PA Catheter Size:9 PA Catheter Side:Right PA [...] 3:00 PM Staff: Anesthesiologist:Jose J Coello MD Resident/FUNDRAISING SALE REPRESENTATIVE/AA:Juliane Ramires MD Pre-procedure: patient identified, IV checked, [...] Difficult Airway: No Anesthesiologist:Jose J Coello MD Resident/FUNDRAISING SALE REPRESENTATIVE/AA:Juliane Ramires MD Performed by: resident/FUNDRAISING SALE REPRESENTATIVE/AA and anesthesiologist Preoxygenated with 100% O2: Yes [...] 4:30 PM CDT) Product name Thawed Plasma [facility] Unit number [id number] [facility] Product code [id number] [facility] Dispense status Returned to BB not transfused [facility] Blood [id number] [place] expiration date [facility] Blood type code 5100 [facility] Blood type O POSITIVE [facility] Product name Thawed Plasma [facility] Unit number [id number] [facility] Product code [id number] [facility] Dispense status Returned to BB not transfused [facility] Blood [id number] [place] expiration [facility] Blood type code 5100 [facility] Blood type O POSITIVE [facility] Specimen Blood Performing Organization Address City/State/Zipcode Phone Number [facility] OF [address] [place] [address] PATHOLOGY AND GENOMIC MEDICINE [address] * Prepare RBC, 3 Units (02/17/2019 4:30 PM CDT) Product name Apheresis Red Cell AS3 #2 LR [facility] Unit number [id number] [facility] Product code [id number] [facility] Dispense status Returned to BB not transfused [facility] Blood [id number] [place] expiration [facility] Blood type code 9500 [facility] Blood type O NEGATIVE [facility] Product name Apheresis Red Cell AS3 #1 LR [facility] Unit number [id number] [facility] Product code [id number] [facility] Dispense status Returned to BB not transfused [facility] Blood [id number] [place] expiration [facility] Blood type code 9500 [facility] Blood type O NEGATIVE [facility] Product name Red Blood Cells -1, Leukored [facility] Unit number [id number] [facility] Product code C0573A52 [facility] Dispense status Transfused [facility] Blood [id number] [place] expiration [facility] Blood type code 9500 [facility] Blood type O NEGATIVE [facility] Product name Red Blood Cells -1, Leukored [facility] Unit number [id number] [facility] Product code [id number] [facility] Dispense status Returned to BB not transfused [facility] Blood [id number] [place] expiration date [facility] Blood type code 9500 [facility] Blood type O NEGATIVE [facility] Product name Apher Red Cell AS3 #1 LR/IRR [facility] Unit number [id number] [facility] Product code [id number] [facility] Dispense status Transfused [facility] Blood [id number] [place] expiration date [facility] Blood type code 9500 [facility] Blood type O NEGATIVE [facility] Product name Red Cells AS1 Leukored Irrad [facility] Unit number [id number] [facility] Product code R5951I36 [facility] Dispense status Transfused [facility] Blood [id number] [place] expiration date [facility] Blood type code 9500 [facility] Blood type O NEGATIVE [facility] Product name Red Blood Cells -1, Leukored [facility] Unit number [id number] [facility] Product code L1476K55 [facility] Dispense status Returned to BB not transfused [facility] Blood [id number] [place] expiration [facility] Blood type code 9500 [facility] Blood type O NEGATIVE [facility] Product name Red Blood Cells -1, Leukored [facility] Unit number [id number] [facility] Product code A5639T76 [facility] Dispense status Returned to BB not transfused [facility] Blood [id number] [place] expiration [facility] Blood type code 9500 [facility] Blood type O NEGATIVE [facility] Product name Red Blood Cells -1, Leukored [facility] Unit number [id number] [facility] Product code [id number] [facility] Dispense status Returned to BB not transfused [facility] Blood 391112341542 [place] expiration [facility] Blood type code 9500 [facility] Blood type O NEGATIVE [facility] Product name Apheresis Red Cell AS3 #1 LR [facility] Unit number [id number] [facility] Product code C5754I20 [facility] Dispense status Returned to BB not transfused [facility] Blood [id number] [place] expiration date [facility] Blood type code 9500 [facility] Blood type O NEGATIVE [facility] Specimen Blood Performing Organization Address City/[facility] Phone Number [facility] OF [address] [place] [address] PATHOLOGY AND GENOMIC MEDICINE [address] * Osmolality, serum (02/17/2019 4:30 PM CDT) Osmolality 276 275 - 295 mOsm/kg [facility] Specimen Blood Performing Organization Address [facility]/Zipcode Phone Number [facility] OF [address] [place] [address] PATHOLOGY AND GENOMIC MEDICINE [address] * Cv invasive peripheral vascular procedure (02/17/2019 7:54 AM CDT) Specimen Narrative Performed At [facility] PROCEDURE: Abdominal angiogram with runoffs. 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 Performing Organization Address [facility]/Zipcode Phone Number [facility] [address] [place] [address] * Echocardiogram complete w contrast and 3D if needed (02/16/2019 10:18 AM CDT) Specimen Narrative Performed At [facility] Echocardiography Report [id number] [facility], [facility], [place] [address] Pat.Name:JACQUELINE RADER.ID:[id number] .Date: 02/16/2019 Refer.MD:ALEKSANDAR ROBISON MD Exam Time: 9:26:00 AMStudy Type:Routine Echo Height:60inWeight:113.76 lb BSA: 1.47 m2 DOBAge:1945,73Y Sex: FEMALEBP:149/64 HR:66 bpmSonogrphr: Benito Damon [facility] Pat. Stat.:Inpatient Room:[address] Study Status:Final Echo Event ID:[id number] Order ID:[id number] Reason for Study:Hypertension - Initial eval of [...] PA systolic pressure. MEASUREMENTS: 2D Parasternal [place] LVIDd3.1 cmIndex2.1 cm/m Ao An1.1 cm LVIDs1.9 [...] 4786.5 cm/s2 AV Mean G 10 mmHgAV QaKi939 cm/s2 AV AC 73 msec (83-118) AV Area1.6 cm2(3-5) AV ET308 msec LVOT For Flow LVOT Area2.8 cm2 LVOT SV 69.4 ml WHWOelOec937.4 cm/sHR59.1 bpm LVOTpkPG 6.8 mmHgLVOT CO4.1 l/min LVOTmnPG 3 mmHgLVOT CI2.8 l/m/m2 LVOT TVI24.5 cm Signed 02/16/2019 02:25 PM Moe Deras M.D. Procedure Note Interface, Radiology Results In - 02/16/2019 2:25 PM CDT Echocardiography Report [id number] [address] Pat.Name: JACQUELINE RADER.ID: [id number] .Date: 02/16/2019 Refer.MD: ALEKSANDAR ROBISON MD Exam Time: 9:26:00 AM Study Type:Routine Echo Height: 60in Weight: 113.76lb BSA: 1.47 m2 Age: 7 1945,73Y Sex: FEMALE BP: 149/64 HR: 66 bpm Sonogrphr: SHAWNA Garza Pat. Stat.:Inpatient Room: [address] Study Status:Final Echo Event ID:[id number] Order ID: [id number] Reason for Study:Hypertension - Initial eval of [...] PA systolic pressure. MEASUREMENTS: 2D Parasternal [place] LVIDd 3.1 cm Index 2.1 cm/m Ao [...] PM Moe Deras M.D. Performing Organization Address City/[facility] Phone Number [facility] [address] [place] [address] * Vancomycin level, trough (02/16/2019 6:20 AM CDT) Vancomycin, 14.2 10.0 - 20.0 ug/mL [place] trough Comment: [facility] Therapeutic Ranges: HOSPITAL Peak 30.0 - 40.0 ug/mL Yomocl67.0 - 20.0 ug/mL Specimen Serum Performing Organization Address City/[facility]code Phone Number [facility] OF [address] [place] [address] PATHOLOGY AND GENOMIC MEDICINE [place] [facility] [address] [place] [id number] [facility] after 05/18/2018 Insurance Type Payer Benefit Subscriber ID Effective Phone Address Plan / Dates Group Medicare MEDICARE MEDICARE xxxxxxxxxxx 2008-P [place], PART A AND resent [place] B O CIGNA CIGNA OPEN xxxxxxxxxxx 2016-P ACCESS/NET resent WORK Advance Directives For more information, please contact: [phone] Patient Power And Recovery Supervisor Explanation Type Date Recorded Advance Directives, Living Will and Medical Power of Forensic Accountant
[2019-05-19] MEDS: SODIUM CHLORIDE 0.9% 1000ML 1,000 ML IV SCH (22:24)
--- NOTE | 2019-05-19 22:31 | NUR ---
PT ARRIVED ON THE UNIT VIA STRETCHER AT 2231. PT IS A&OX3. RESPIRATION IS EVEN AND UNLABORED, NO DISTRESS NOTED. PATENT NG TUBE TO LEFT NARES TO LOW CONTINUOUS SUCTION DRAINING. PT ORIENTED TO THE ROOM, BED IN LOWEST POSITION, LOCKED, AND BED ALARM ON. ADMISSION AND HEAD TO TOE ASSESSMENT COMPETED. WILL CONTINUE TO MONITOR.
[2019-05-19 22:32] VITALS: BP 95/57
[2019-05-20] VITALS (7 sets, daily range): BP systolic 95–136; BP diastolic 53–64
[2019-05-20] MEDS: SODIUM CHLORIDE 0.9% 250ML IRRIG IR SCH ×6 (02:42→22:00)
--- NOTE | 2019-05-20 03:10 | NUR ---
PER DR SNYDER PT MAY HAVE ICE CHIP. WILL CONTINUE TO MONITOR.
[2019-05-20] MEDS: LEVOFLOXACIN 500MG/D5W 100ML 100 ML IV SCH (05:25)
[2019-05-20 06:15] LABS: EOSINOPHILS % 0.1 % (0.0-6.0); HEMOGLOBIN 10.6 g/dL (12.0-16.0); LYMPHOCYTES # (AUTO) 0.8 (1.0-3.2); LYMPHOCYTES % 3.6 % (18.0-39.1); MEAN CORPUSCULAR HEMOGLOBIN 31.4 pg (28-32); MEAN CORPUSCULAR HGB CONC 33.1 g/dL (31-35); MEAN CORPUSCULAR VOLUME 94.7 fL (81-99); MONOCYTES # (AUTO) 1.2 (0.2-0.8); MONOCYTES % 5.8 % (4.4-11.3); NEUTROPHILS # (AUTO) 18.9 (2.1-6.9); NEUTROPHILS % 87.9 % (38.7-80.0); PLATELET COUNT 309 x10e3/uL (140-360); RED BLOOD COUNT 3.38 x10e6/uL (3.6-5.1); RED CELL DISTRIBUTION WIDTH 14.8 % (11.7-14.4)
--- NOTE | 2019-05-20 06:35 | Consultation ---
DATE OF CONSULTATION: 05/20/2019 CHIEF COMPLAINT: Abdominal pain, diarrhea, and vomiting. HISTORY OF PRESENT ILLNESS: The patient is a 73-year-old female with 5-day history of progressive abdominal distention, nausea, vomiting, and discomfort. The patient denies hematemesis. She had a past history of recurrent C diff colitis. PAST MEDICAL HISTORY: Positive for hypertension, arthritis, peripheral vascular disease, and chronic smoking. PAST SURGICAL HISTORY: Positive for appendectomy, cholecystectomy, hysterectomy, peripheral vascular surgery recently in the left lower extremity. Aortobifemoral bypass graft. LABORATORY DATA: White cell count 30, hemoglobin of 12, and platelet count 434. Creatinine is 1.2. Lactic acid 9.8. Abdominal CT show intestinal obstruction with transitional point in the distal ileum. Possible pneumatosis in the ascending colon. ASSESSMENT: Abdominal pain, vomiting, diarrhea in patient with history of recurrent colitis and peripheral vascular disease. Need to rule out C diff colitis. IV hydration and continue monitor for possible ischemic ascending colitis. PLAN: IV hydration, antibiotics. Continue to monitor exam of the abdomen. May need surgical intervention for progressive ischemia in the ascending colon. Joshua Florez MD DNL/MODL /[id number]
[2019-05-20 06:44] LABS: LYMPHOCYTES % (MANUAL) 4 % (19-48); MONOCYTES % (MANUAL) 4 % (3.4-9.0); NEUTROPHILS % (MANUAL) 92 % (40-74); PLATELET ESTIMATE ADEQUATE; RBC MORPHOLOGY COMMENT NORMAL
[2019-05-20] MEDS: MORPHINE SULFATE INJ 4 MG/ML INJ 1ML IV PRN ×3 (09:37→20:19)
--- NOTE | 2019-05-20 12:41 | NUR ---
73 yo Female admitted rt GI issues presents with bilateral lateral ankle wounds related to dermatitis slow healing related to pressure and friction to areas bilateral pulses noted to be present but weak feet cool to touch skin assessment done noted unremarkable small abrasions to bilateral legs and left knee Recommendations turn Q 2 hrs patient out of bed for meals as tolerated bilateral heel protectors with pillow suspension while in bed Allevyn foam and venelex Qday left and right lateral ankle wounds
--- NOTE | 2019-05-20 13:40 | NUR ---
Nutrition Screen Note RD Recommendation for Physician: -When medically appropriate, rec advancing diet to GI soft Plan of Care: RD following, monitoring for tolerance and adequacy Nutrition reason for involvement: Nutrition Risk Trigger MST Primary Diagnose(s): SBO PMH: C-diff, HTN, GERD, cholecystectomy Ht: 60in Wt: 105lb BMI: 20.5kg/m2 IBW: 100lb RD Assessment: (05/20) Chart reviewed. Labs and meds reviewed. 73yo F, who was admitted for SBO. +NGT to [facility]. Visited pt in the room. IVF was running at 125mL/hr. Pt reported decreased meal intake x3 days. Pt stated I drank only water and pedialyte. UBW ~110lbs per pt. LBM 05/19, diarrhea. Pt has history of C diff in the past. Currently NPO. Will continue to monitor and follow. Current Diet: NPO Malnutrition Evaluation (05/20/2019) The patient does not meet criteria for a specified degree of malnutrition at this time. Will re-evaluate at follow-up as appropriate. Diet Education Needs Assessment: Diet education not indicated. Nutrition Care Level: low Signed: Saundra Padron, MS, RD, LD
[2019-05-20] MEDS: SODIUM CHLORIDE 0.9% 1000ML 1,000 ML IV SCH ×3 (14:00→23:00)
--- NOTE | 2019-05-20 19:20 | NUR ---
Patient visited in room during nursing rounds. Patient alert and oriented x4. NG tube to left nare in place and connected to low continuous suction. Greenish fluid collected on canister noted. Pt has intermittent pain on lower back and abdomen. Will medicate pt accordingly. Call avina within reach.
[2019-05-21] VITALS (7 sets, daily range): BP systolic 109–145; BP diastolic 47–66
[2019-05-21] MEDS: MORPHINE SULFATE INJ 4 MG/ML INJ 1ML IV PRN ×5 (01:59→20:30)
[2019-05-21] MEDS: SODIUM CHLORIDE 0.9% 250ML IRRIG IR SCH ×6 (02:00→20:37)
[2019-05-21] MEDS: LEVOFLOXACIN 500MG/D5W 100ML 100 ML IV SCH (05:00)
[2019-05-21] MEDS: SODIUM CHLORIDE 0.9% 1000ML 1,000 ML IV SCH ×2 (05:20→08:31)
[2019-05-21 06:02] LABS: HEMATOCRIT 30.9 % (34.2-44.1); HEMOGLOBIN 10.2 g/dL (12.0-16.0); LYMPHOCYTES # (AUTO) 0.8 (1.0-3.2); LYMPHOCYTES % 3.3 % (18.0-39.1); MEAN CORPUSCULAR HEMOGLOBIN 31.3 pg (28-32); MEAN CORPUSCULAR VOLUME 94.8 fL (81-99); MONOCYTES # (AUTO) 1.3 (0.2-0.8); MONOCYTES % 5.9 % (4.4-11.3); NEUTROPHILS % 89.3 % (38.7-80.0); PLATELET COUNT 233 x10e3/uL (140-360); RED BLOOD COUNT 3.26 x10e6/uL (3.6-5.1); RED CELL DISTRIBUTION WIDTH 14.8 % (11.7-14.4)
--- NOTE | 2019-05-21 07:01 | Diagnostic Imaging Report ---
Exam: Abdominal film Clinical History: Small bowel obstruction Comparison: CT abdomen and pelvis 05/19/2019 DISCUSSION: Interval placement of an enteric tube, with the tip projecting over the expected region of the gastric antrum/pylorus. There are multiple dilated loops of small bowel throughout the abdomen, to a maximum caliber of 4.4 cm. Crescentic small foci of gas lucency in the right lower quadrant, corresponding to the descending colon on comparison CT. Excreted contrast material opacifies the bladder. Bilateral surgical clips project over the femoral heads. No acute osseous abnormalities. IMPRESSION: Persistent findings of small bowel obstruction. As before, crescentic foci of gas in the right lower quadrant, concerning for pneumatosis intestinalis of the proximal ascending colon. Signed by: Dr. Joshua Augustin M.D. on 05/21/2019 6:57 AM
[2019-05-21 07:52] LABS: ALANINE AMINOTRANSFERASE 16 IU/L (0-55); ALBUMIN 1.8 g/dL (3.5-5.0); ALBUMIN/GLOBULIN RATIO 0.5 (0.8-2.0); ALKALINE PHOSPHATASE 92 IU/L (40-150); ANION GAP 23.8 mmol/L (8-16); BLOOD UREA NITROGEN 32 mg/dL (7-26); BUN/CREATININE RATIO 46 (6-25); CALCIUM 7.4 mg/dL (8.4-10.2); CARBON DIOXIDE 25 mmol/L (22-29); CHLORIDE 97 mmol/L (98-107); EST GLOMERULAR FILTRATION RATE > 60 ML/MIN (60-); GLUCOSE 69 mg/dL (74-118); SODIUM 143 mmol/L (136-145)
[2019-05-21 07:54] LABS: POTASSIUM 2.8 mmol/L (3.5-5.1)
[2019-05-21] MEDS ORDERED: MAGNESIUM SULFATE 2GM/50ML 50 ML IV ONE ×2 (08:15→20:00)
[2019-05-21] MEDS ORDERED: POTASSIUM CHLORIDE 10MEQ/100ML 100 ML IV ONE (08:30)
--- NOTE | 2019-05-21 08:33 | NUR ---
Received call from lab for critical results k-2.8 and mg-1.0. Notified Dr. Palm and received orders to infuse KCL 60 mEq Iv over six hours and mag sulfate 2g IV now and Mag sulfate 2g IV in eight hours.
[2019-05-21] MEDS ORDERED: POTASSIUM CHLORIDE 10MEQ/100ML 600 ML IV ONE (09:00)
[2019-05-21 09:17] LABS: ANISOCYTOSIS SLIGHT; BAND NEUTROPHILS % (MANUAL) 8 %; LYMPHOCYTES % (MANUAL) 4 % (19-48); METAMYELOCYTES % (MANUAL) 2 % (0-0); MONOCYTES % (MANUAL) 3 % (3.4-9.0); NEUTROPHILS % (MANUAL) 83 % (40-74); PLATELET ESTIMATE ADEQUATE; PLATELET MORPHOLOGY COMMENT NORMAL; RBC MORPHOLOGY COMMENT ABNORMAL; TOXIC GRANULATION MARKED
[2019-05-21] MEDS: BALSAM PERU/CASTOR OIL 60 GM OINT...G. TP SCH (10:17)
--- NOTE | 2019-05-21 19:59 | Consultation ---
DATE OF CONSULTATION: 05/21/2019 Cardiology Consultation REASON FOR CONSULTATION: Cardiac clearance. HISTORY OF PRESENT ILLNESS: This is a 73-year-old woman with a history of hypertension, hyperlipidemia, peripheral arterial disease, status post aortobifem bypass, chronic obstructive pulmonary disease, and tobacco use, who presented to emergency department with nausea, vomiting, and abdominal pain. She was found to have a small bowel obstruction and is n.p.o. with nasal gastric tube present. General Surgery plans for surgical intervention. She denies any chest pain and her shortness of breath is at baseline. REVIEW OF SYSTEMS: A 12-point review of system was conducted, is negative except as stated above in the HPI. PAST MEDICAL HISTORY: As stated above in the HPI. PAST SURGICAL HISTORY: As stated above in the HPI. PAST FAMILY HISTORY: Noncontributory. ALLERGIES: PENICILLIN, SULFA, AND TETRACYCLINE. MEDICATIONS: See medication reconciliation form. SOCIAL HISTORY: Tobacco use. PHYSICAL EXAMINATION: VITAL SIGNS: Temperature is 96.8, heart rate is 82, respirations 16, blood pressure is 145/58, oxygen saturation 96% on 2 L nasal cannula. GENERAL: Well-appearing elderly woman, lying comfortably in bed. HEENT: Head is normocephalic and atraumatic. Eyes, extraocular muscles are intact. Conjunctivae clear. NECK: No JVD. No bruits. CARDIOVASCULAR: Regular rate and rhythm with a systolic murmur at the right sternal border. LUNGS: Clear to auscultation. ABDOMEN: Distended, nontender. Hypoactive bowel sounds. EXTREMITIES: Diminished pulses. SKIN: Warm, dry, and intact. NEUROLOGIC: No focal deficits noted. LABORATORY DATA: Reviewed. White blood cell count 22.4, potassium 2.8, creatinine 0.7, and magnesium 1. IMPRESSION: 1. Small bowel obstruction. 2. Leukocytosis. 3. Electrolyte abnormalities. 4. Peripheral artery disease, status post aortobifem bypass. RECOMMENDATIONS: Continue current cardiovascular medications. Small bowel obstruction per surgical and primary teams. We will obtain an echocardiogram and electrocardiogram. We will reassess her cardiac risk once those have been completed. DO LADY Lizama/MODL /[id number]
[2019-05-22] VITALS (8 sets, daily range): BP systolic 135–172; BP diastolic 55–72
[2019-05-22] MEDS: MORPHINE SULFATE INJ 4 MG/ML INJ 1ML IV PRN ×3 (01:40→13:46)
[2019-05-22] MEDS: SODIUM CHLORIDE 0.9% 250ML IRRIG IR SCH ×6 (02:00→21:30)
[2019-05-22] MEDS: SODIUM CHLORIDE 0.9% 1000ML 1,000 ML IV SCH ×3 (05:20→21:30)
[2019-05-22] MEDS: LEVOFLOXACIN 500MG/D5W 100ML 100 ML IV SCH (05:20)
[2019-05-22 06:27] LABS: HEMATOCRIT 30.1 % (34.2-44.1); HEMOGLOBIN 9.8 g/dL (12.0-16.0); LYMPHOCYTES # (AUTO) 0.9 (1.0-3.2); LYMPHOCYTES % 4.3 % (18.0-39.1); MEAN CORPUSCULAR HEMOGLOBIN 31.3 pg (28-32); MEAN CORPUSCULAR HGB CONC 32.6 g/dL (31-35); MEAN CORPUSCULAR VOLUME 96.2 fL (81-99); MONOCYTES # (AUTO) 0.8 (0.2-0.8); MONOCYTES % 3.7 % (4.4-11.3); NEUTROPHILS # (AUTO) 18.9 (2.1-6.9); NEUTROPHILS % 87.9 % (38.7-80.0); PLATELET COUNT 220 x10e3/uL (140-360); RED BLOOD COUNT 3.13 x10e6/uL (3.6-5.1); RED CELL DISTRIBUTION WIDTH 15.1 % (11.7-14.4)
[2019-05-22 06:55] LABS: ALANINE AMINOTRANSFERASE 27 IU/L (0-55); ALBUMIN 1.7 g/dL (3.5-5.0); ALBUMIN/GLOBULIN RATIO 0.5 (0.8-2.0); ALKALINE PHOSPHATASE 97 IU/L (40-150); ANION GAP 19.6 mmol/L (8-16); BLOOD UREA NITROGEN 26 mg/dL (7-26); BUN/CREATININE RATIO 39 (6-25); CALCIUM 8.3 mg/dL (8.4-10.2); CARBON DIOXIDE 30 mmol/L (22-29); CHLORIDE 99 mmol/L (98-107); CREATININE, SERUM 0.66 mg/dL (0.57-1.11); EST GLOMERULAR FILTRATION RATE > 60 ML/MIN (60-); GLUCOSE 85 mg/dL (74-118); SODIUM 146 mmol/L (136-145)
[2019-05-22 07:14] LABS: POTASSIUM 2.6 mmol/L (3.5-5.1)
[2019-05-22 07:38] LABS: MAGNESIUM 2.3 MG/DL (1.3-2.1)
--- NOTE | 2019-05-22 07:57 | NUR ---
Pt in bed. axo4 and able to verbalize needs. Ngtube to left nare in place and patent. Breaths are even and unlabored.
[2019-05-22 08:04] LABS: ANISOCYTOSIS SLIGHT; BAND NEUTROPHILS % (MANUAL) 2 %; EOSINOPHILS % (MANUAL) 1 % (0-7); LYMPHOCYTES % (MANUAL) 9 % (19-48); MONOCYTES % (MANUAL) 4 % (3.4-9.0); NEUTROPHILS % (MANUAL) 84 % (40-74); PLATELET ESTIMATE ADEQUATE; PLATELET MORPHOLOGY COMMENT NORMAL; POIKILOCYTOSIS SLIGHT; RBC MORPHOLOGY COMMENT ABNORMAL; TOXIC GRANULATION MODERATE
[2019-05-22] MEDS: BALSAM PERU/CASTOR OIL 60 GM OINT...G. TP SCH (09:00)
--- NOTE | 2019-05-22 09:10 | NUR ---
Spoke with Dr. Palm to report critical potassium of 2.7. Received orders to given KCL 60mEq IV x1 dose to infuse over 6hrs.
[2019-05-22] MEDS ORDERED: POTASSIUM CHLORIDE 20MEQ/100ML 300 ML IV ONE (09:30)
--- NOTE | 2019-05-22 12:30 | NUR ---
Dr. Zhu was here to see pt and has cleared pt for surgery from cardiac standpoint.
--- NOTE | 2019-05-22 13:10 | NUR ---
Spoke with Dr. Noel to let him know that Cardiology has seen her and has cleared pt for procedure. He states he will let Dr. Florez know.
--- NOTE | 2019-05-22 15:39 | Progress Note ---
DATE: 05/22/2019 Cardiology Progress Note SUBJECTIVE: Denies any chest pain. Reports abdominal pain. OBJECTIVE: VITAL SIGNS: Temperature is 96.2, heart rate is 83, respirations are 18, blood pressure is 172/70 and oxygen saturation is 93% on room air. GENERAL: She is a chronically ill-appearing elderly woman, lying comfortably in bed. CARDIOVASCULAR: Regular rate and rhythm. Systolic murmur at the right sternal border. LUNGS: Diminished breath sounds at bases. ABDOMEN: Soft, nontender, nondistended. LABORATORY DATA: Reviewed. MEDICATIONS: Reviewed. TELEMETRY: Monitoring revealed normal sinus rhythm. IMPRESSION: 1. Small bowel obstruction. 2. Leukocytosis. 3. Electrolyte abnormalities. 4. Peripheral artery disease, status post aortobifemoral bypass. RECOMMENDATIONS: Her echocardiogram showed preserved left ventricular systolic function with aortic sclerosis without any evidence of stenosis. Continue treatment per primary team for small bowel obstruction. She may proceed with surgery if indicated. Schedule IV hydralazine 10 mg q.6 hours for better blood pressure control. Nikunj Zhu DO BM/MODL /[id number]
--- NOTE | 2019-05-22 19:10 | NUR ---
BS rounds completed with morning nurse. Pt alert and oriented to name. Lying in bed HOB 60 degrees. NG left naris LIWS in place. Increased anxiousness, increased movements. Call avina within reach. Will continue to monitor.
--- NOTE | 2019-05-22 20:25 | NUR ---
Admin prn Dilaudid s/s of pain, facial grimacing and restlessness.
--- NOTE | 2019-05-22 21:35 | NUR ---
Dislodge NG left naris and 20g IV right AC. Min bleeding to right AC. No bleeding noted to left naris. Pt increased anxiousness and movement x4 extremities. No acute distress noted. Bed alarm on. Will continue to monitor.
--- NOTE | 2019-05-22 21:39 | NUR ---
Spoke with Dr. Palm informed Pt dislodged NG tube from left naris. No active bleeding noted. Dr. Sam ordered Ativan 0.5mg IV Q6hrs prn anxiety and ordered to call surgeon for further instructions for NG tube placement.
--- NOTE | 2019-05-22 21:46 | NUR ---
Spoke with Joshua Shah electronic drafter for Dr. Florez. Dr. Noel ordered to replace NG for possible surgery tomorrow.
[2019-05-22] MEDS: LORAZEPAM INJ 2 MG/ML VIAL IV PRN (22:00)
--- NOTE | 2019-05-22 22:00 | NUR ---
Admin prn Ativan 0.5mg IV prn anxiety.
--- NOTE | 2019-05-22 22:15 | NUR ---
x2 failed attempts 14 Fr NGT to left and right nares. Pt continues to have anxiety and constant movement. Min bleeding to left naris. Will allow Patient to rest before reattempt placement of NGT. No active distress noted. Bed alarm on. Call avina within reach.
--- NOTE | 2019-05-22 23:30 | NUR ---
14 Fr NGT inserted x1 attempt through the left naris using clean technique after prep with jelly for patient comfort.
[2019-05-23] VITALS (12 sets, daily range): BP systolic 98–179; BP diastolic 56–90
--- NOTE | 2019-05-23 00:14 | Diagnostic Imaging Report ---
Exam: Abdominal film Clinical History: Nasogastric tube placement Comparison: Check NGT placement DISCUSSION: Enteric tube has been adjusted or replaced. The tip now projects over the expected region of the gastric fundus. No appreciable interval change in degree of dilatation of several small bowel loops. Right lower quadrant findings are again concerning for pneumatosis involving the proximal ascending colon. Atherosclerotic vascular calcifications and degenerative changes of the lumbar spine are again noted. IMPRESSION: Tip of enteric tube projects over the gastric fundus. Persistent findings of small bowel obstruction with concern for pneumatosis intestinalis involving the ascending colon. Refer to initial CT abdomen and pelvis 05/19/2019 for further details. Signed by: Dr. Joshua Augustin M.D. on 05/23/2019 12:10 AM
[2019-05-23] MEDS: SODIUM CHLORIDE 0.9% 250ML IRRIG IR SCH ×4 (01:45→17:45)
--- NOTE | 2019-05-23 04:45 | NUR ---
Patient dislodged NG left naris. No bleeding noted to left naris. Pt increased anxiousness and movement x4 extremities. No acute distress noted. Bed alarm on. Will continue to monitor.
[2019-05-23] MEDS: LORAZEPAM INJ 2 MG/ML VIAL IV PRN (04:50)
--- NOTE | 2019-05-23 04:50 | NUR ---
Admin prn Ativan 0.5mg IV prn anxiety.
[2019-05-23] MEDS: LEVOFLOXACIN 500MG/D5W 100ML 100 ML IV SCH (05:00)
--- NOTE | 2019-05-23 05:30 | NUR ---
Dr. Palm aware of NGT dislodgement, will reattempt placement after patient has decreased anxiousness.
[2019-05-23] MEDS: SODIUM CHLORIDE 0.9% 1000ML 1,000 ML IV SCH ×3 (05:45→21:33)
--- NOTE | 2019-05-23 06:30 | NUR ---
x2 failed attempts 14 Fr NGT to left and right nares. Pt continues to have anxiety and constant movement. Min bleeding to left naris. No active distress noted. Bed alarm on. Call avina within reach.
[2019-05-23 06:58] LABS: BASOPHILS % 0.1 % (0.0-1.0); EOSINOPHILS % 0.1 % (0.0-6.0); HEMATOCRIT 31.6 % (34.2-44.1); HEMOGLOBIN 9.8 g/dL (12.0-16.0); LYMPHOCYTES # (AUTO) 0.9 (1.0-3.2); LYMPHOCYTES % 6.7 % (18.0-39.1); MEAN CORPUSCULAR HEMOGLOBIN 30.4 pg (28-32); MEAN CORPUSCULAR VOLUME 98.1 fL (81-99); MONOCYTES # (AUTO) 0.7 (0.2-0.8); NEUTROPHILS # (AUTO) 10.8 (2.1-6.9); PLATELET COUNT 181 x10e3/uL (140-360); RED BLOOD COUNT 3.22 x10e6/uL (3.6-5.1); RED CELL DISTRIBUTION WIDTH 15.1 % (11.7-14.4)
[2019-05-23 07:13] LABS: ALANINE AMINOTRANSFERASE 24 IU/L (0-55); ALBUMIN 1.8 g/dL (3.5-5.0); ALBUMIN/GLOBULIN RATIO 0.5 (0.8-2.0); ALKALINE PHOSPHATASE 101 IU/L (40-150); ANION GAP 19.1 mmol/L (8-16); BLOOD UREA NITROGEN 19 mg/dL (7-26); BUN/CREATININE RATIO 33 (6-25); CALCIUM 8.8 mg/dL (8.4-10.2); CARBON DIOXIDE 30 mmol/L (22-29); CHLORIDE 103 mmol/L (98-107); CREATININE, SERUM 0.58 mg/dL (0.57-1.11); EST GLOMERULAR FILTRATION RATE > 60 ML/MIN (60-); GLUCOSE 112 mg/dL (74-118); POTASSIUM 3.1 mmol/L (3.5-5.1); SODIUM 149 mmol/L (136-145)
[2019-05-23 07:24] LABS: BAND NEUTROPHILS % (MANUAL) 4 %; LYMPHOCYTES % (MANUAL) 6 % (19-48); MONOCYTES % (MANUAL) 2 % (3.4-9.0); NEUTROPHILS % (MANUAL) 88 % (40-74)
[2019-05-23 07:25] LABS: PLATELET ESTIMATE ADEQUATE; PLATELET MORPHOLOGY COMMENT NORMAL; RBC MORPHOLOGY COMMENT NORMAL
--- NOTE | 2019-05-23 07:25 | NUR ---
Bedside rounds completed with morning nurses. Pt alert to name only. Anxious and constantly moving. 20g IV right FA wrapped with Coban. no acute distress noted.
[2019-05-23] MEDS ORDERED: POTASSIUM CHLORIDE 20MEQ/100ML 200 ML IV ONE (08:00)
--- NOTE | 2019-05-23 08:02 | NUR ---
Morning rounding completed. Patient resting in bed, AOx1. IV intact and patent. Bed locked and in low position, alarm on. Call light placed within reach. Will plan to get sitter and continue to monitor.
[2019-05-23] MEDS: BALSAM PERU/CASTOR OIL 60 GM OINT...G. TP SCH (09:15)
--- NOTE | 2019-05-23 10:06 | NUR ---
Patient confused, seen trying to get out of bed, removing hospital gown, and tugging on IV tubing. Dr. Florez notified that patient pulled out NG tube earlier this morning. Bed locked and in low position, alarm on. Call light placed within reach. Will continue to monitor.
--- NOTE | 2019-05-23 11:15 | NUR ---
Dr. Florez rounding on patient at this time. Notified him that patient pulled NG tube x2 and attempted to place a new one x2 but unsuccessful. No new orders received. Will continue to monitor.
--- NOTE | 2019-05-23 12:15 | NUR ---
Dr. Gonzalez from anesthesia in to see patient, notified nurse to add Dilaudid to allergies due to dysphoric effect. Allergy added to chart. notified attending physician.
--- NOTE | 2019-05-23 13:18 | NUR ---
Patient leaving unit for surgery. In stable condition.
[2019-05-23] MEDS ORDERED: SODIUM CHLORIDE 0.9% 50ML 50 ML ONE (14:35)
[2019-05-23] MEDS ORDERED: METRONIDAZOLE 500MG/NS 100ML 100 ML IV ONE (15:00)
[2019-05-23] MEDS ORDERED: LORAZEPAM INJ 2 MG/ML VIAL IV PRN (17:00)
--- NOTE | 2019-05-23 17:00 | NUR ---
Patient received from OR . ETT to Vent: PRVC-10; FIO2-50%; TV-500 and Peep-5 and O2 sats are 98%. Bedside report received from CAITLIN Freedman. Anesthesiologist here at bedside and RT now at bedside for Vent settings. Dr. Florez here to see patient as well. CXR ordered for RIJ line placement.
--- NOTE | 2019-05-23 17:15 | NUR ---
Family now at bedside.
--- NOTE | 2019-05-23 17:30 | NUR ---
Abdominal Dressing is dry and intact. Ieostomy has small amount of liquid brown contents.
--- NOTE | 2019-05-23 17:42 | NUR ---
PATIENT TO BE TRANSFERRED TO ICU ROOM 189 POST SURGERY. REPORT CALLED TO RECEIVING NURSE AT THIS TIME.
[2019-05-23] MEDS ORDERED: ONDANSETRON HCL INJ 2MG/ML 2ML 2 MG/ML VIAL ONE (17:45)
[2019-05-23] MEDS ORDERED: PHENYLEPHRINE HCL 1% 10 MG/ML VIAL ONE (17:45)
[2019-05-23] MEDS ORDERED: SEVOFLURANE INHAL SOLN 250 ML PEN BTL ONE (17:45)
[2019-05-23] MEDS ORDERED: LIDOCAINE HCL 2% LOCAL INJ 5 ML SDV VIAL INJ ONE (17:45)
[2019-05-23] MEDS ORDERED: ROCURONIUM BROMIDE 10 MG/ML 5ML VIAL ONE (17:45)
[2019-05-23] MEDS ORDERED: PROPOFOL IV EMULSION 10 MG/ML 20 ML VIAL ONE (17:45)
[2019-05-23] MEDS ORDERED: DEXAMETHASONE SOD PHOS INJ 4 MG/ML VIAL ONE (17:45)
--- NOTE | 2019-05-23 18:02 | Diagnostic Imaging Report ---
A single frontal view of the chest. HISTORY: Small bowel obstruction, pneumatosis, central line placement. COMPARISON: KUB from May 22, 2019. DISCUSSION: Portable technique, limits sensitivity of the exam. Multiple overlying artifacts patient positioning limits evaluation. Right anterior oblique rotation. Tubes/Lines: Endotracheal tube, the tip projecting 2.1 cm above the level the jessica. A nasogastric/orogastric tube extending below the level of the diaphragm, beyond the [id number]. A right approach jugular central venous catheter, the tip projects in the region of the mid superior vena cava. Lungs and pleura: No evidence of a consolidative pneumonia or pulmonary alveolar edema. No definite pleural effusion or pneumothorax is identified. Heart and mediastinum: The cardiomediastinal silhouette appear(s) unremarkable. Bones and soft tissues: Appear unremarkable, given this limited exam. IMPRESSION: Interval placement of a right jugular central venous catheter, which appears to be within appropriate position. Signed by: Dr. Juliano Middleton D.O., M.M.M. on 05/23/2019 5:59 PM
[2019-05-23] MEDS ORDERED: FENTANYL CITRATE/PF 100MCG/2 ML INJ ONE (18:20)
--- NOTE | 2019-05-23 18:30 | NUR ---
Dr. Sung consulted for Vent management
[2019-05-23] MEDS ORDERED: HYDRALAZINE HCL 20 MG/ML VIAL IV PRN (18:45)
[2019-05-23] MEDS: FENTANYL CITRATE/PF 100MCG/2 ML INJ IV PRN ×2 (19:56→22:00)
--- NOTE | 2019-05-23 19:56 | NUR ---
Pulmonary/Critical Care [id number] Thanks
[2019-05-23] MEDS ORDERED: POTASSIUM CHLORIDE 20MEQ/100ML 100 ML IV ONE (20:00)
[2019-05-23] MEDS: PROPOFOL IV EMULSION 10MG/ML 100 ML IV PRN (21:26)
[2019-05-23] MEDS: METRONIDAZOLE 500MG/NS 100ML 100 ML IV SCH (22:01)
--- NOTE | 2019-05-23 23:29 | Operative Report ---
DATE OF PROCEDURE: 05/23/2019 SURGEON: Joshua Florez MD PREOPERATIVE DIAGNOSIS: Ischemia of the right colon with bowel obstruction. POSTOPERATIVE DIAGNOSIS: Ischemia of the right colon with bowel obstruction. PROCEDURE: Right colectomy with and ileostomy. ANESTHESIA: General, Dr. Gonzalez. INDICATION: This is a 73-year-old female with abdominal distention, vomiting, and on the day of surgery, having perfuse watery diarrhea. The patient had significant leukocytosis with CT scan showing evidence of pneumatosis in the right colon. Her mental status also worsen with increased confusions. The family had decided for exploratory laparotomy and possible bowel resection and ileostomy. PROCEDURE FINDING: Transmural necrosis of the right colon. Localized subhepatic abscesses. DESCRIPTION OF PROCEDURE: The patient was brought to the OR intubated. The abdomen prepped and draped in sterile fashion. The midline incision was made from xiphoid to below the umbilicus extending through the linea alba. Adhesions from prior surgeries encountered. Lysis of adhesion was carried out with the LigaSure instrument to separate the omentum from the abdominal wall. We then proceeded to identify the right colon. Transmural necrosis with no perforation was noted. The process started from the ileocecal valve to the proximal transverse colon. We proceeded to mobilize the right colon by dividing the white line of Toldt using cautery. In the process of blunt and sharp dissection, we uncovered two subhepatic abscesses under the omentum, which then drained. Swab culture specimen obtained. We then proceeded to transect the terminal ileum near the ileocecal valve with a CELI stapler and the right colon was then removed by taking the mesentery to the right colon flushed to the mesenteric border using the LigaSure instrument. Dissection carried towards the hepatic flexure, which was then taken down with the LigaSure instrument. The mid transverse colon was transected with another CELI stapler and a corresponding mesentery was removed. We then submitted specimen to pathology. The distal transverse colon was somewhat dusky, but viable. At this point, we irrigated with copious amount of saline. Hemostasis achieved. We then decided to perform an ileostomy in the right lower quadrant as the process of ischemia may be progressive. At this point, the right lower quadrant ostomy site was then created by taking an ellipse of skin and subcutaneous tissue in a transverse fascia. We opened transversely and the peritoneal cavity was entered allowing two fingerbreadths. The end ileostomy was exteriorized through the ostomy site. We then closed the fascia in the midline with a running #0 PDS reinforced with #0 Vicryl. Skin closed with corey. We then matured the ileostomy to the skin edge with interrupted 3-0 Vicryl. Appliance inserted. The patient was then intubated in a guarded condition to ICU. ESTIMATED BLOOD LOSS: 30 mL. Of note, at the end of the procedure, the patient has perfuse watery stool and specimen obtained for C diff. Joshua Florez MD DNIngrid/MODL /[id number]
[2019-05-24] VITALS (23 sets, daily range): BP systolic 88–157; BP diastolic 48–112
[2019-05-24] MEDS ORDERED: SODIUM CHLORIDE 0.9% 1000ML 2,000 ML ONE (01:47)
--- NOTE | 2019-05-24 02:21 | Consultation ---
DATE OF CONSULTATION: 05/23/2019 Pulmonary and Critical Care Consult REASON FOR REFERRAL: Postoperative state. HISTORY OF PRESENT ILLNESS: Ms. Rader is a pleasant 73-year-old female with postoperative state. The patient was admitted on May 19, 2019. The patient was seen to have abdominal distention. She had some associated nausea and vomiting. She had a history of recurrent C. diff colitis. The patient had a white blood count of 30,[address]. [address] of the abdomen showed intestinal obstruction with transition point in the distal ileum. Suspected pneumatosis in the ascending colon. The patient was given hydration and antibiotics. Serial evaluation of her abdomen was performed with persistent findings of colonic pathology that was not resolving. The patient's white count was improving, but was felt to have poor clinical progress and high risk. The patient was having more agitation and delirium prior to surgery. Today, it was elected to take the patient to surgery. Right hemicolectomy and ostomy were performed by a surgeon. No clinical complications reported. The surgical incision site was midline just above the umbilicus and did not need to go to the xiphoid process. The patient remains intubated after surgery. PAST MEDICAL HISTORY: Hypertension, arthritis, peripheral vascular disease, appendectomy, cholecystectomy, hysterectomy, peripheral vascular surgery in the left lower extremity with aortobifemoral bypass graft. MEDICATIONS: Medication list reviewed per the chart record. ALLERGIES: PENICILLIN, SULFA, TAPE, TETANUS VACCINE AND TOXOID, HYDROMORPHONE, AND TETRACYCLINES. SOCIAL HISTORY: Reportedly, the patient with a close family member, who was involved. Tobacco use. No known alcohol. No known drugs. FAMILY HISTORY: Noncontributory. REVIEW OF SYSTEMS: Cannot get, as the patient is intubated. OBJECTIVE: VITAL SIGNS: Vital signs stable, although the patient on ventilator. GENERAL: Generally in bed, awakening from anesthesia, starting to move. HEENT: Normocephalic and atraumatic. NECK: Supple. Throat midline. LUNGS: Bilateral air entry, limited evaluation, but otherwise clear. CARDIOVASCULAR: S1 and S2. No murmurs, rubs, or gallops. ABDOMEN: Soft, postoperative. EXTREMITIES: No clubbing, no cyanosis, and no edema. INTEGUMENT: No rash. No purpura. LABORATORY DATA: C. diff assay is pending. Urine without white cells. 3.1 potassium, 30 bicarbonate, 19 BUN, 0.6 creatinine. Glucose was 112 preoperative. Magnesium was last 2.3. LFTs were mostly unremarkable. Albumin 1.8, total protein 5.8. White count 13.7, 32 hematocrit, and 181 platelets. IMPRESSION AND PLAN: 1. Postoperative respiratory insufficiency. 2. Bowel obstruction with pneumatosis. 3. Postoperative state, status post right hemicolectomy and ileostomy. 4. Chronic smoker. 5. Peripheral vascular disease. 6. History of multiple C. difficile episodes. 7. Chronic smoker. 8. Hypertension. 9. Arthritis. 10. Encephalopathy, toxic metabolic. 11. Anemia, moderate. 12. Hypokalemia. 13. Severe protein-calorie malnutrition. Continue intubated state for short term. Pain medicines as needed. Ensure her encephalopathy is stabilizing, as she had big escalations in treatment yesterday. The patient will have IV fluid continued. Follow up her urine output for stability. Consideration for extubation tomorrow. We will follow along closely. Adjust ventilator settings. Antibiotics to be continued. Thank you very much, Dr. Palm and Dr. Florez for allowing me a chance to participate in the care of Ms. Rader. Please call with any questions. MD ASHWINI Mcnulty/NINA /[id number] MTDD
[2019-05-24] MEDS: FENTANYL CITRATE/PF 100MCG/2 ML INJ IV PRN ×2 (02:45→10:20)
[2019-05-24] MEDS: PROPOFOL IV EMULSION 10MG/ML 100 ML IV PRN (04:33)
[2019-05-24 05:00] LABS: HEMOGLOBIN 8.5 g/dL (12.0-16.0); LYMPHOCYTES # (AUTO) 0.6 (1.0-3.2); LYMPHOCYTES % 4.8 % (18.0-39.1); MEAN CORPUSCULAR HEMOGLOBIN 30.6 pg (28-32); MEAN CORPUSCULAR HGB CONC 31.5 g/dL (31-35); MEAN CORPUSCULAR VOLUME 97.1 fL (81-99); MONOCYTES # (AUTO) 0.8 (0.2-0.8); MONOCYTES % 6.3 % (4.4-11.3); NEUTROPHILS # (AUTO) 9.8 (2.1-6.9); NEUTROPHILS % 78.3 % (38.7-80.0); PLATELET COUNT 107 x10e3/uL (140-360); RED BLOOD COUNT 2.78 x10e6/uL (3.6-5.1); RED CELL DISTRIBUTION WIDTH 15.3 % (11.7-14.4)
[2019-05-24 05:26] LABS: ALANINE AMINOTRANSFERASE 12 IU/L (0-55); ALBUMIN 1.6 g/dL (3.5-5.0); ALBUMIN/GLOBULIN RATIO 0.6 (0.8-2.0); ALKALINE PHOSPHATASE 66 IU/L (40-150); ANION GAP 18.8 mmol/L (8-16); BLOOD UREA NITROGEN 17 mg/dL (7-26); BUN/CREATININE RATIO 30 (6-25); CALCIUM 7.8 mg/dL (8.4-10.2); CARBON DIOXIDE 30 mmol/L (22-29); CHLORIDE 105 mmol/L (98-107); CREATININE, SERUM 0.57 mg/dL (0.57-1.11); EST GLOMERULAR FILTRATION RATE > 60 ML/MIN (60-); GLUCOSE 108 mg/dL (74-118); MAGNESIUM 1.3 MG/DL (1.3-2.1); PHOSPHORUS 2.1 MG/DL (2.3-4.7); POTASSIUM 3.8 mmol/L (3.5-5.1); SODIUM 150 mmol/L (136-145)
[2019-05-24] MEDS: LEVOFLOXACIN 500MG/D5W 100ML 100 ML IV SCH (05:45)
--- NOTE | 2019-05-24 06:24 | Diagnostic Imaging Report ---
EXAMINATION: CHEST SINGLE (PORTABLE) COMPARISON: Chest x-ray 05/23/2019 INDICATION: Pneumatosis ^screening ^[id number] ^[id number] DISCUSSION: Frontal view of the chest obtained at 0604 hours. HEART AND MEDIASTINUM: The heart is normal in size. The aorta is tortuous with calcifications of the arch LINES: Endotracheal tube terminates 4 to 5 cm above the jessica. Enteric tube extends past the diaphragm. Right IJ catheter terminates in the SVC. LUNGS: The lungs are well inflated and clear. No pneumonia or pulmonary edema. PLEURA: No pleural effusion or pneumothorax. BONES AND SOFT TISSUES: No focal osseous lesion. The soft tissues are normal. IMPRESSION: Support devices as described above. No acute cardiopulmonary process. Signed by: Dr. Melissa Montoya MD on 05/24/2019 6:21 AM
[2019-05-24] MEDS: METRONIDAZOLE 500MG/NS 100ML 100 ML IV SCH ×3 (06:25→22:18)
[2019-05-24 07:10] LABS: BAND NEUTROPHILS % (MANUAL) 10 %; LYMPHOCYTES % (MANUAL) 6 % (19-48); METAMYELOCYTES % (MANUAL) 1 % (0-0); MONOCYTES % (MANUAL) 4 % (3.4-9.0); NEUTROPHILS % (MANUAL) 79 % (40-74); PLATELET ESTIMATE SLIGHTLY DECREASED; PLATELET MORPHOLOGY COMMENT NORMAL; RBC MORPHOLOGY COMMENT ABNORMAL
[2019-05-24 07:11] LABS: ANISOCYTOSIS SLIGHT; POIKILOCYTOSIS SLIGHT; TOXIC GRANULATION MODERATE
[2019-05-24] MEDS: SODIUM CHLORIDE 0.9% 1000ML 1,000 ML IV SCH ×2 (07:23→12:38)
[2019-05-24] MEDS: BALSAM PERU/CASTOR OIL 60 GM OINT...G. TP SCH (09:00)
--- NOTE | 2019-05-24 09:14 | NUR ---
spoke with pascale at dr richards office about new consult
--- NOTE | 2019-05-24 09:30 | NUR ---
SAT AND SBT performed this am, patient is moving all over the bed, not following commands, opening eyes spontaneously, respirations are 30. after 30 minutes, patient returned to [facility] and sedation resumed
[2019-05-24] MEDS: FAMOTIDINE 20 MG/2 ML VIAL IV SCH (09:33)
--- NOTE | 2019-05-24 11:55 | NUR ---
Nutrition Intervention Note RD Recommendation for Physician: - Per current GI status, recommend initiating TPN of 1200 ml TV, Dextrose 150 g/day, AA10% 75 g/day, no Sodium at this time, KCl 30 mEq/L, KPhos 12 mmol/L, Ca Gluconate 5 mEq/L, Mg Sulfate 12 mEq/L. Add MVI, trace, and thiamine. - Check Phos, Mg, and TG with am labs. While on TPN please check BMP with Mg and Phos daily. Check TG weekly. - Additional IVF/fluid management per MD. - When medically appropriate, rec advancing diet to GI soft. Plan of Care: RD following, monitoring for tolerance and adequacy Nutrition reason for involvement: Intubation, follow up, screened for diet Primary Diagnose(s): SBO PMH: C-diff, HTN, GERD, cholecystectomy Ht: 60in Wt: 105lb BMI: 20.5kg/m2 IBW: 100lb RD Assessment: 05/24: Pt now intubated, s/p GI surgery yesterday. NGT in place with 600 ml greenish output noted, RN reports output since surgery yesterday. Pt agitated at time of visit, Propofol to be resumed. No family at bedside. BM this am. POC and rec's discussed with RN during am rounds. Per RN pt with central access. Chart reviewed. Will monitor and continue to follow. (05/20) Chart reviewed. Labs and meds reviewed. 73yo F, who was admitted for SBO. +NGT to LIS. Visited pt in the room. IVF was running at 125mL/hr. Pt reported decreased meal intake x3 days. Pt stated I drank only water and pedialyte. UBW ~110lbs per pt. LBM 05/19, diarrhea. Pt has history of C diff in the past. Currently NPO. Will continue to monitor and follow. IVF: Propofol- off NS at 125 ml/hr GI: LBM 05/24, + NGT with 600 ml output Skin: No PU Labs: 05/24: Na 150, K 3.8, Cl 105, CO2 30, BUN 17, Cr 0.57, Gluc 108, Ca 7.8, Phos 2.1, Alb 1.6 Meds: reviewed Malnutrition Evaluation (05/20/2019) The patient does not meet criteria for a specified degree of malnutrition at this time. Will re-evaluate at follow-up as appropriate. Diet Education Needs Assessment: Diet education not indicated. Estimated Nutritional Needs: 962-1202 calories/day (20-25 kcal/kg CBW) 63-96 g protein/day (1.3-2 g pro/kg CBW) Nutrition Prescription (Diet Order): NPO Diet Adequacy: Not meeting calorie needs, Not meeting protein needs Nutrition Care Level: High Nutrition Diagnosis: Inadequate energy and protein intake related to SBO and recent GI surgery as evidenced by NPO with NGT to LIWS and requiring nutrition support. Goal: Patient will meet 75-100% of estimated needs by follow up Progress: N/A Interventions: Composition, Rate, Route, IVF, Prescription medications, Recommended Modifications, Collaboration with other providers Monitoring/Evaluation: Total energy intake, Total protein intake, Formula/Solution, IVF, Prescription medication Signed: Kassy Bruno RD, LD, [facility]
[2019-05-24] MEDS ORDERED: CHLOROTHIAZIDE SODIUM 500 MG VIAL IV ONE (13:15)
--- NOTE | 2019-05-24 13:20 | NUR ---
PULMONARY MEDICINE DATE OF ENCOUNTER: 05/24/2019 SUBJECTIVE: NS at 100 / hr ivf UOP 550 cc over 12 hrs on ventilator remains with hyperkinetic motor condition REVIEW OF SYSTEMS: Cannot get, as the patient is intubated. OBJECTIVE: VITAL SIGNS: Vital signs stable, although the patient on ventilator. GENERAL: Generally in bed, awakens, moves a lot. HEENT: Normocephalic and atraumatic. NECK: Supple. Throat midline. LUNGS: Bilateral air entry, few rhonchi CARDIOVASCULAR: S1 and S2. No murmurs, rubs, or gallops. ABDOMEN: Soft, postoperative. EXTREMITIES: No clubbing, no cyanosis, no edema. INTEGUMENT: No rash. No purpura. LABORATORY DATA: 3.8 k, .6 cr. 12 wbc, 27 hct, plt 107 IMPRESSION AND PLAN: 1. Postoperative respiratory insufficiency. 2. Admit with bowel obstruction + pneumatosis. 3. Postoperative state, s/p right hemicolectomy and ileostomy. 4. Chronic smoker. 5. Peripheral vascular disease. 6. History of multiple C. difficile episodes. 7. Chronic smoker. 8. Hypertension. 9. Arthritis. 10. Encephalopathy, toxic metabolic. 11. Anemia, moderate. 12. Hypokalemia. 13. Severe protein-calorie malnutrition. 14. ?choreoathetosis Extubate D/c ventilator d/c sedation follow up the movements, movement DO? Consider decreasing IVF in next day if stable Follow up her urine output for stability. Chlorothiazide x 1 dose Antibiotics to be continued. Diet per surgeon Thank you very much, Dr. Palm and Dr. Florez for allowing me a chance to participate in the care of Ms. Rader. Please call with any questions.
[2019-05-24] MEDS ORDERED: DIPHENHYDRAMINE HCL INJ 50 MG/ML VIAL IV ONE (14:15)
--- NOTE | 2019-05-24 14:33 | NUR ---
patient moving all over bed. notified dr phipps, he orders benadryl iv q6 prn. also spoke to lucas beck, he states patient has had a movement disorder for 20 years and also has a family history of huntingtons. son reports patient has not wanted to be tested for it herself. medical record updated.
[2019-05-24] MEDS ORDERED: DIPHENHYDRAMINE HCL INJ 50 MG/ML VIAL IV PRN ×2 (14:45→17:00)
[2019-05-24] MEDS: CEFEPIME 1GM/NS 0.9% 50 ML 50 ML IV SCH ×2 (16:00→22:18)
--- NOTE | 2019-05-24 16:39 | Progress Note ---
DATE: 05/24/2019 Cardiology Progress Note SUBJECTIVE: The patient had right colectomy with ileostomy yesterday. Remains intubated with severe agitation and tachycardia. OBJECTIVE: VITAL SIGNS: Temperature is 99.7, heart rate is 128, respirations are 23, blood pressure is 126/71, and oxygen saturation 98% on 45% FiO2, mechanical ventilation. GENERAL: She is agitated and intubated. CARDIOVASCULAR: Tachycardic. Regular rhythm. LUNGS: Clear to auscultation. ABDOMEN: Soft, nontender, and nondistended. NEUROLOGIC: Agitation. CARDIOVASCULAR MEDICATIONS: Reviewed. LABORATORY DATA: Reviewed. Hemoglobin 8.5, creatinine is 0.57, potassium is 3.8. TELEMETRY: Monitoring revealed sinus tachycardia. IMPRESSION: 1. Bowel obstruction, status post colectomy and ileostomy. 2. Leukocytosis. 3. Anemia. 4. Electrolyte abnormalities. 5. Peripheral artery disease, status post aortobifemoral bypass. RECOMMENDATIONS: Continue to wean her mechanical ventilation. Recent echocardiogram showed preserved left ventricular systolic function. When she is able to tolerate oral medications. Can start metoprolol for better heart rate control. Continue to monitor closely on telemetry. DO LADY Lizama/MODL /[id number]
[2019-05-24] MEDS ORDERED: DIPHENHYDRAMINE HCL INJ 50 MG/ML VIAL IV NR (17:00)
--- NOTE | 2019-05-24 18:07 | NUR ---
updated dr aquino on patient's condition. consult for dr cabral entered and md notified.
--- NOTE | 2019-05-24 19:55 | Consultation ---
DATE OF CONSULTATION: 05/24/2019 REASON FOR CONSULTATION: Peritonitis, recommendation antibiotic that the patient is allergic to several. HISTORY OF PRESENT ILLNESS: This is a 73-year-old white female, who has been having progressive abdominal distention, comes into the emergency room on May 20, 2019. The patient does have history of arthritis, peripheral vascular disease, chronic smoking, hypertension, appendectomy, cholecystectomy, hysterectomy, vascular surgery, and aortobifemoral bypass. She also have extrapyramidal movements. According to family, she also has history of allergies to penicillin, but does not know how long. It has been more than 20 years. They do not know if she took Keflex or not, tetracycline, hydromorphone, tetanus, tape, and sulfa. The patient comes in with abdominal pain. She was seen by Surgery. She was seen by GI. It was felt that she probably have a small bowel obstruction. The patient was taken to surgery on May 23. I was asked to see her. The patient is currently extubated, alert, confused with some extrapyramidal movement noted. She is currently on Levaquin and Flagyl. The patient with no complaints at present time. PAST MEDICAL HISTORY: As above. PAST SURGICAL HISTORY: As above. ALLERGIES: ABOVE. SOCIAL HISTORY: There is no smoking, drug abuse, or alcohol abuse. REVIEW OF SYSTEMS: HEENT: There is no headache, visual changes, or hearing changes. GI: Currently, no nausea, no vomiting, no diarrhea. CARDIAC: There is no arrhythmia. NEURO: No seizure activity. SKIN: There are no other rashes. JOINTS: There is no erythema or edema. LYMPH: There is no enlargement. All other systems within normal limit. PHYSICAL EXAMINATION: GENERAL: She is alert and confused. VITAL SIGNS: Stable, currently afebrile. HEENT: She is not icteric. Normocephalic. NECK: Supple. No JVD. No lymphadenopathy. No thyromegaly. CHEST: Clear bilateral. HEART: S1 and S2. No murmurs. ABDOMEN: Soft. Possible bowel sounds present. No tenderness. EXTREMITIES: No edema. SKIN: There is no rash. IMPRESSION: 1. Ischemic right colon, status post resection. 2. Status post right colectomy with ileostomy. 3. Extrapyramidal movement, neurological, old. 4. Respiratory failure, resolved. She is off the vent. 5. Peritonitis, localized. 6. Chronic smoker from peripheral vascular disease. 7. History of Clostridium difficile. We will try cefepime and Flagyl. I am aware about her allergies. Discussed with the son. Continue the IV fluids, supportive care. We are going to observe her neurologically since cefepime and Flagyl can aggravate her neurological status. Recheck CBC. Recheck Chem panel. We will follow with you. Thank you for asking me to see this patient. MD PORTIA Saldivar/NINA /[id number]
[2019-05-24] MEDS: MORPHINE SULFATE INJ 4 MG/ML INJ 1ML IV PRN (20:52)
[2019-05-24] MEDS ORDERED: CEFEPIME HCL 1 GM VIAL IV SCH (22:00)
[2019-05-25] VITALS (26 sets, daily range): BP systolic 100–159; BP diastolic 58–132
[2019-05-25] MEDS: DIPHENHYDRAMINE HCL INJ 50 MG/ML VIAL IV SCH ×5 (00:02→23:56)
--- NOTE | 2019-05-25 02:06 | Consultation ---
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 History is obtained from review of the electronic medical record and from the patient's son, Chencho Rader, via telephone. Ms. Rader was admitted to [facility] on May 19, 2019, after presenting to the emergency center with abdominal pain, nausea, and vomiting. Ms. Rader was found to have a small-bowel obstruction, and was admitted to a Medicine Surgery floor for further treatment. Initially, the patient was treated with intravenous antibiotics and kept n.p.o. with an NG tube in place. For pain, the patient received morphine on an as-needed basis. Despite gradual improvement in the patient's white blood cell count, which had been elevated on admission, her abdominal examination did not improve. Therefore, Ms. Rader was taken to the operating room on May 23, 2019 for a right colectomy with colostomy and ileostomy. Shortly before and following surgery, Ms. Rader was noted to have involuntary movements, which are further described as writhing movements of the mouth and face, trunk, arms, and legs. According to the hospital staff, initially, the movements were nearly continuous. However, they have decreased in frequency and severity over the past 24 hours. According to the patient's son, the movements appeared to begin after Ms. Rader received a dose of either Ativan or fentanyl preoperatively. Ms. Rader's son is uncertain as to which medication may have triggered these abnormal movements. However, he is disconcerted about his mother receiving fentanyl prior to and after the operation when she "was doing just fine with morphine." Furthermore, Mr. Rader wishes his mother had not received Ativan because he knows of multiple relatives and friends of the family who have experienced adverse reactions to Ativan or other benzodiazepines. Ms. Rader's last dose of fentanyl was received at 1856 on May 23, 2019. Her last dose of Ativan was received at 1734 on May 23, 2019. Today, the patient was prescribed Benadryl 25 mg intravenously every 6 hours as needed for tremors. She received doses of this medication at approximately 1700 on May 24, 2019. According to the patient's son, Ms. Rader has not experienced similar activity previously. He does report his mother as having involuntary movements at baseline. These involuntary movements are described as rocking back and forth. Her primary care physician, Dr. Cornelio Palm, has told the son the rocking motion may be due to her chronic low back pain. There is a positive family history for movement disorders. Two of the patient's sisters are from Fisher's disease. Ms. Rader has not undergone testing to determine whether or not she has Fisher's disease; in the past, she has adamantly refused such testing. REVIEW OF SYSTEMS: Unable to obtain secondary to the patient being encephalopathic and speech being indecipherable. PAST MEDICAL HISTORY: Hypertension, hyperlipidemia, peripheral vascular disease, chronic obstructive pulmonary disease, and osteoarthritis. PAST SURGICAL HISTORY: Appendectomy, cholecystectomy, hysterectomy, and aortobifemoral bypass graft of the left leg. FAMILY MEDICAL HISTORY: Fisher's disease in two sisters, both of whom are . SOCIAL HISTORY: Ms. Rader is single. She is retired. The patient does continue to smoke cigarettes daily. There is no reported alcohol or recreational drug use. HOME MEDICATIONS: Reviewed. Please see the list of home medications available in the electronic medical record. HOSPITAL MEDICATIONS: Reviewed. Please see the list of hospital medications available in the electronic medical record. ALLERGIES: PENICILLIN, SULFA, TETANUS VACCINE AND TOXOID, TETRACYCLINE, HYDROMORPHONE. NO KNOWN FOOD ALLERGIES. NO KNOWN ALLERGIES TO LATEX. HOWEVER, THE PATIENT DOES HAVE A DOCUMENTED ADVERSE REACTION TO ADHESIVE. THERE IS NO KNOWN ALLERGY TO IODINE OR OTHER CONTRAST MATERIALS. PHYSICAL EXAMINATION: VITAL SIGNS: Height 60 inches, weight 106 pounds, BMI 20.7 kg/m2, blood pressure 134/98 mmHg, pulse 109 beats per minute, respiratory rate 25 breaths per minute, and oxygen saturation 99% on room air. General: The patient appears agitated. She moans continuously. There were twisting movements of the mouth, shrugging of the shoulders, tapping of the fingers, and rocking of the legs from [id number]. HEENT: Normocephalic, atraumatic. Unable to adequately assess pupillary response. Moist mucous membranes. NECK: Supple. No appreciable thyromegaly. No appreciable carotid bruits. CARDIOVASCULAR: S1, S2, tachycardic, regular rhythm. No murmurs, rubs, or gallops. RESPIRATORY: Clear to auscultation bilaterally. No wheezes, rhonchi, or rales. EXTREMITIES: The skin is warm and dry. No clubbing, cyanosis, or edema. The peripheral pulses are 1+ and symmetric over the posterior tibial and dorsalis pedis arteries. NEUROLOGIC: Memory/attention: As stated above, the patient appears agitated. She is unable to answer orientation questions. She inconsistently follows [employer]imic simple commands. Cranial Nerves: Cranial nerve I - not tested. Cranial nerve II, III, IV, and - pupillary response cannot be adequately assessed. Extraocular movements appear grossly intact. No nystagmus. No oculogyric crisis. Cranial nerve V - sensation appears to be grossly intact to light touch in the bilateral V1 through V3 distributions. Strength of the temporalis and masseter muscles appears grossly normal. Cranial nerve VII - the face appears symmetric, as are all facial movements. Strength appears within normal limits. Cranial nerve VIII - hearing is grossly intact to voice. Cranial nerve IX, X - unable to assess. Cranial nerve XI - unable to assess. Cranial nerve XII - unable to assess. Strength: Bulk is diminished in both arms and both legs. A formal assessment of strength cannot be performed due to the patient's inability to cooperate. Strength is grossly 4/5. Tone is grossly normal. DTRs: Unable to assess secondary to lack of patient cooperation. Sensation: The patient withdraws both arms and both legs to peripheral noxious stimulation. Cerebellar: Unable to assess due to lack of patient cooperation. Speech: Indecipherable. Involuntary movements: As detailed above. Drift: As per motor exam. LABORATORY DATA: The most recent comprehensive metabolic panel reveals an elevated sodium of 150, carbon dioxide of 30, anion gap of 18.8, calcium of 7.8, total protein of 4.5, and albumin of 1.6. Phosphorus is 2.1. Lactic acid 9.8. Troponin I less than 0.05. B-natriuretic peptide 79.0 and lipase is 10. The CBC with differential and platelets reveals an elevated white blood cell count of 12.48 with a left shift with 78.3% neutrophils, 4.8% lymphocytes, 6.3% monocytes, 0.0% eosinophils, and 0.0% basophils. The hemoglobin and hematocrit are 8.5 and 27.0, respectively and the platelet count is 107. A urinalysis collected on May 19, 2019, revealed slightly cloudy urine with 1+ protein, 1+ ketones, and moderate urine bacteria with few epithelial cells. Blood cultures collected on May 19, 2019, revealed no growth after 72 hours. A Gram stain and wound culture are pending. DIAGNOSTIC STUDIES: Electrocardiogram at 05/19/2019: Sinus rhythm at 81 beats per minute with sinus arrhythmia with short TN interval with occasional premature atrial complexes. Chest x-ray on 05/19/2019: No acute cardiopulmonary abnormality. CT of the abdomen and pelvis with contrast 05/19/2019: Findings suggestive of small bowel obstruction with a transition point in the distal ileum. No pneumoperitoneum. Gas lucencies in the proximal ascending colon are felt to be intraluminal rather than territory representative of pneumatosis intestinalis, though close clinical followup is warranted, particularly given the patient's reported substantial leukocytosis. The patient aortobifemoral bypass graft with interval decrease in size of left groin postoperative fluid collection. 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 Abdomen x-ray on 05/21/2019: Persistent findings of small bowel obstruction. As before, a crescentic foci of gas in the right lower quadrant, concerning for pneumatosis intestinalis of the proximal ascending colon. Abdomen x-ray on 05/22/2019: Tip of enteric tube projects over the gastric fundus. Persistent findings of small bowel obstruction with concern for pneumatosis intestinalis involving the ascending colon. Refer to initial CT abdomen and pelvis on 05/19/2019 for further details. Echocardiogram on 05/22/2019: Ejection fraction 60%. The aortic valve is calcified. Trace mitral and tricuspid regurgitation. Chest x-ray on 05/24/2019: Support devices as described above. No acute cardiopulmonary process. ASSESSMENT AND PLAN: Ms. Rader is a 73-year-old woman with past medical history as detailed, admitted to [facility] on May 19, 2019, with a small-bowel obstruction. The patient is status post right colectomy with colostomy and ileostomy. Preoperatively and postoperatively, the patient has been observed to have writhing movements as described in the history of present illness. Ms. Rader has undergone a thorough neurological examination with findings detailed above. Her laboratory data and other diagnostic studies have been reviewed and are documented above. There are a number of different diagnoses which might explain the patient's involuntary movements. Those include: Ischemic stroke of the red nucleus. Given the patient's multiple vascular risk factors, acute dystonic reaction, movement disorder, such as Fisher's disease or Parkinson disease, tardive dyskinesia (though the patient's son does not report prior treatment with neuroleptics or antiemetic medications). RECOMMENDATIONS: As follows: 1. An MRI of the brain without contrast under MAC sedation will be performed to evaluate for stroke. There may be findings on the MRI to support a diagnosis of Parkinson's disease or Fisher's disease as well. 2. In my opinion, since the patient's involuntary movements seem to begin after receiving either Ativan or fentanyl, it is most likely Ms. Rader is experiencing an acute dystonic reaction. Avoidance of medications known to cause an acute dystonic reaction (neuroleptics, anti medics, and antidepressants) is recommended. Of note, both fentanyl and Ativan have been previously implicated in acute dystonic reaction. Those medications have been discontinued. 3. For treatment of acute dystonic reaction, Ms. Rader will be prescribed Benadryl 50 mg intravenously every 6 hours. As her symptoms improve, she will be transitioned to Benadryl 50 mg by mouth every 6 hours for 1-2 days thereafter. Thank you for this consultation. I shall continue to follow the patient while she remains in the hospital. TIME SPENT: 70 minutes. Tiffany Bell MD CP/NINA /[id number] MTDNessa
[2019-05-25] MEDS: SODIUM CHLORIDE 0.9% 1000ML 1,000 ML IV SCH ×3 (04:08→20:10)
[2019-05-25] MEDS: MORPHINE SULFATE INJ 4 MG/ML INJ 1ML IV PRN ×2 (04:08→20:41)
[2019-05-25 05:04] LABS: BASOPHILS # (AUTO) 0.1 (0.0-0.1); BASOPHILS % 0.7 % (0.0-1.0); EOSINOPHILS % 0.2 % (0.0-6.0); HEMATOCRIT 27.5 % (34.2-44.1); HEMOGLOBIN 8.6 g/dL (12.0-16.0); LYMPHOCYTES # (AUTO) 1.3 (1.0-3.2); LYMPHOCYTES % 11.8 % (18.0-39.1); MEAN CORPUSCULAR HEMOGLOBIN 30.7 pg (28-32); MEAN CORPUSCULAR HGB CONC 31.3 g/dL (31-35); MEAN CORPUSCULAR VOLUME 98.2 fL (81-99); MONOCYTES # (AUTO) 0.8 (0.2-0.8); MONOCYTES % 7.5 % (4.4-11.3); NEUTROPHILS % 72.4 % (38.7-80.0); PLATELET COUNT 94 x10e3/uL (140-360); RED CELL DISTRIBUTION WIDTH 15.4 % (11.7-14.4)
[2019-05-25 05:24] LABS: ANION GAP 12.8 mmol/L (8-16); BLOOD UREA NITROGEN 12 mg/dL (7-26); BUN/CREATININE RATIO 24 (6-25); CALCIUM 7.8 mg/dL (8.4-10.2); CARBON DIOXIDE 34 mmol/L (22-29); CHLORIDE 103 mmol/L (98-107); EST GLOMERULAR FILTRATION RATE > 60 ML/MIN (60-); GLUCOSE 77 mg/dL (74-118); MAGNESIUM 1.2 MG/DL (1.3-2.1); PHOSPHORUS 1.7 MG/DL (2.3-4.7); SODIUM 147 mmol/L (136-145)
[2019-05-25 05:30] LABS: POTASSIUM 2.8 mmol/L (3.5-5.1)
--- NOTE | 2019-05-25 05:51 | Diagnostic Imaging Report ---
EXAMINATION: CHEST SINGLE (PORTABLE) COMPARISON: Chest x-ray 05/24/2019 INDICATION: Postop, small bowel obstruction ^chf ^[id number] DISCUSSION: Frontal view of the chest obtained at 0457 hours. HEART AND MEDIASTINUM: The heart is top normal in size. The origin is tortuous. LINES: Endotracheal tube, if present, is not visualized. Enteric tube extends past the diaphragm. Right IJ catheter terminates in the SVC LUNGS: The lungs are well inflated and clear. No pneumonia or pulmonary edema. PLEURA: No pleural effusion or pneumothorax. BONES AND SOFT TISSUES: No focal osseous lesion. The soft tissues are normal. IMPRESSION: Support devices as described above. No acute cardiopulmonary process. Signed by: Dr. Melissa Montoya MD on 05/25/2019 5:48 AM
[2019-05-25] MEDS ORDERED: POTASSIUM CHLORIDE 20MEQ/100ML 200 ML IV ONE ×2 (06:30→10:30)
[2019-05-25] MEDS: CEFEPIME 1GM/NS 0.9% 50 ML 50 ML IV SCH ×3 (06:40→21:33)
[2019-05-25] MEDS: METRONIDAZOLE 500MG/NS 100ML 100 ML IV SCH ×3 (06:40→20:15)
--- NOTE | 2019-05-25 07:38 | Progress Note ---
DATE: 05/25/2019 SUBJECTIVE: The patient was extubated yesterday. Overnight, she did okay with no new complaints. She still has her NG tube in. OBJECTIVE: VITAL SIGNS: Temperature 98.6, pulse 110, blood pressure 139/100, sats 92%. GENERAL: She is in no apparent distress, lying in bed. CARDIOVASCULAR: Regular rate and rhythm. LUNGS: Decreased breath sounds bilaterally. ABDOMEN: Soft, nondistended. No peritoneal signs. EXTREMITIES: No clubbing or cyanosis. NEUROLOGIC: She has her baseline chorea movements. ASSESSMENT AND PLAN: 1. Status post bowel surgery. Continue with current postoperative care. 2. Anemia. Check a CBC. 3. Thrombocytopenia. Check a CBC. 4. Leukocytosis. We will also check a CBC. 5. Hypertension. We will continue to monitor. Reduce hydralazine p.r.n. please see hospital chart for full details. MD BRIE Kee/NINA /[id number]
[2019-05-25] MEDS: BALSAM PERU/CASTOR OIL 60 GM OINT...G. TP SCH (09:35)
[2019-05-25] MEDS: FAMOTIDINE 20 MG/2 ML VIAL IV SCH (09:35)
[2019-05-25] MEDS ORDERED: SODIUM CHLORIDE 0.9% 500ML 500 ML ONE (12:16)
--- NOTE | 2019-05-25 14:59 | Diagnostic Imaging Report ---
History: AMS surgery 09/11/2018 Comparison studies: None Technique: Sagittal T2; axial DWI, FLAIR, MPGR, T1, Coronal FLAIR. Intravenous contrast: None Findings: Scalp: Normal in signal . No masses . Bone marrow: Normal in signal intensity. Extra-axial: No masses, no fluid collections. Brain sulci: Mildly prominent. Ventricles: Mildly prominent . No hydrocephalus . Parenchyma: Scattered small T-2/flair hyperintensities of the periventricular and deep white matter. No masses, hemorrhage, acute or chronic vascular insults. Suprasellar region: No abnormalities. Craniocervical junction: No abnormalities. Patent foramen magnum. No Chiari one malformation. Vessels: Normal flow-voids in the arteries and sinuses. Trace of fluid at the bilateral mastoid air cells IMPRESSION: 1. No acute abnormalities. 2. Mild chronic microvascular ischemic changes of the white matter Signed by: DR Erickson Burnett M.D. on 05/25/2019 2:56 PM
--- NOTE | 2019-05-25 16:46 | NUR ---
PULMONARY MEDICINE DATE OF ENCOUNTER: 05/25/2019 SUBJECTIVE: 100% saturation 1 L/min oxygen receiving benadryl scheduled ngt with 125 cc out / 6 hrs garcia in REVIEW OF SYSTEMS: Cannot get, as the patient is altered and apraxic OBJECTIVE: VITAL SIGNS: Vital signs stable, revied per record GENERAL: Generally in bed, awake HEENT: Normocephalic and atraumatic. NECK: Supple. Throat midline. LUNGS: Bilateral air entry, rare rhonchi CARDIOVASCULAR: S1 and S2. No murmurs, rubs, or gallops. ABDOMEN: Soft, postoperative. EXTREMITIES: No clubbing, no cyanosis, no edema. INTEGUMENT: No rash. No purpura. LABORATORY DATA: 1.8 k, cr .5. 11 wbc. 94 plt IMPRESSION AND PLAN: 1. Postoperative respiratory insufficiency. extubated 2. Admit with bowel obstruction + pneumatosis. 3. Postoperative state, s/p right hemicolectomy and ileostomy. 4. Chronic smoker. 5. Peripheral vascular disease. 6. History of multiple C. difficile episodes. 7. Chronic smoker. 8. Hypertension. 9. Arthritis. 10. Encephalopathy, toxic metabolic. 11. Anemia, moderate. 12. Hypokalemia. 13. Severe protein-calorie malnutrition. 14. ?choreoathetosis NOS. o2 per protocol continue to follow with neuro, w/u. MRI pending follow GI outputs supportive care d/c garcia in 1-2 days Antibiotics to be continued. Diet per surgeon, NPO still for now Thank you very much, Dr. Palm for allowing me a chance to participate in the care of Ms. Rader. Please call with any questions.
[2019-05-25] MEDS ORDERED: PROPOFOL IV EMULSION 10 MG/ML 20 ML VIAL ONE (17:54)
[2019-05-25] MEDS: METOPROLOL TARTRATE INJ 1 MG/ML VIAL IV SCH ×3 (18:00→23:56)
[2019-05-25] MEDS ORDERED: FENTANYL CITRATE/PF 100MCG/2 ML INJ ONE (18:11)
--- NOTE | 2019-05-25 19:00 | NUR ---
Report received. Assumed care. Assessment done. See interventions. IV NS @ 100ml/hr. NGT to LCS with david lorenzo.
[2019-05-26] VITALS (26 sets, daily range): BP systolic 84–158; BP diastolic 45–99
[2019-05-26 05:15] LABS: BASOPHILS # (AUTO) 0.1 (0.0-0.1); BASOPHILS % 0.6 % (0.0-1.0); EOSINOPHILS # (AUTO) 0.1 (0.0-0.4); EOSINOPHILS % 0.9 % (0.0-6.0); HEMATOCRIT 28.2 % (34.2-44.1); HEMOGLOBIN 8.8 g/dL (12.0-16.0); LYMPHOCYTES # (AUTO) 1.3 (1.0-3.2); LYMPHOCYTES % 10.8 % (18.0-39.1); MEAN CORPUSCULAR HEMOGLOBIN 30.7 pg (28-32); MEAN CORPUSCULAR HGB CONC 31.2 g/dL (31-35); MEAN CORPUSCULAR VOLUME 98.3 fL (81-99); MONOCYTES # (AUTO) 0.9 (0.2-0.8); MONOCYTES % 7.4 % (4.4-11.3); NEUTROPHILS # (AUTO) 8.6 (2.1-6.9); PLATELET COUNT 99 x10e3/uL (140-360); RED BLOOD COUNT 2.87 x10e6/uL (3.6-5.1); RED CELL DISTRIBUTION WIDTH 15.4 % (11.7-14.4)
[2019-05-26] MEDS: METOPROLOL TARTRATE INJ 1 MG/ML VIAL IV SCH ×3 (05:51→17:27)
[2019-05-26] MEDS: METRONIDAZOLE 500MG/NS 100ML 100 ML IV SCH ×3 (05:51→22:12)
[2019-05-26] MEDS: CEFEPIME 1GM/NS 0.9% 50 ML 50 ML IV SCH ×3 (05:51→21:22)
[2019-05-26] MEDS: DIPHENHYDRAMINE HCL INJ 50 MG/ML VIAL IV SCH ×3 (05:51→17:04)
[2019-05-26 06:07] LABS: ANION GAP 17.4 mmol/L (8-16); BLOOD UREA NITROGEN 12 mg/dL (7-26); BUN/CREATININE RATIO 26 (6-25); CALCIUM 7.6 mg/dL (8.4-10.2); CARBON DIOXIDE 35 mmol/L (22-29); CHLORIDE 106 mmol/L (98-107); CREATININE, SERUM 0.47 mg/dL (0.57-1.11); EST GLOMERULAR FILTRATION RATE > 60 ML/MIN (60-); MAGNESIUM 1.2 MG/DL (1.3-2.1); POTASSIUM 3.4 mmol/L (3.5-5.1); SODIUM 155 mmol/L (136-145)
[2019-05-26 06:25] LABS: GLUCOSE 54 mg/dL (74-118)
[2019-05-26] MEDS ORDERED: DEXTROSE 50% SYRINGE 50 ML IV STA (06:28)
--- NOTE | 2019-05-26 06:31 | NUR ---
Blood sugar [address] Palm. Orders given. D50 IV given.
[2019-05-26] MEDS: MORPHINE SULFATE INJ 4 MG/ML INJ 1ML IV PRN ×2 (08:12→14:01)
[2019-05-26] MEDS: ONDANSETRON HCL INJ 2MG/ML 2ML 2 MG/ML VIAL IV PRN (08:12)
[2019-05-26 08:14] LABS: ANISOCYTOSIS SLIGHT; BAND NEUTROPHILS % (MANUAL) 11 %; EOSINOPHILS % (MANUAL) 1 % (0-7); LYMPHOCYTES % (MANUAL) 9 % (19-48); MONOCYTES % (MANUAL) 7 % (3.4-9.0); NEUTROPHILS % (MANUAL) 72 % (40-74); PLATELET ESTIMATE SLIGHTLY DECREASED; PLATELET MORPHOLOGY COMMENT NORMAL; POIKILOCYTOSIS SLIGHT; RBC MORPHOLOGY COMMENT NORMAL
[2019-05-26] MEDS: SODIUM CHLORIDE 0.9% 1000ML 1,000 ML IV SCH (09:14)
[2019-05-26] MEDS: BALSAM PERU/CASTOR OIL 60 GM OINT...G. TP SCH (09:14)
[2019-05-26] MEDS: FAMOTIDINE 20 MG/2 ML VIAL IV SCH (09:14)
[2019-05-26] MEDS ORDERED: POTASSIUM CHLORIDE 20MEQ/100ML 200 ML IV ONE (12:30)
[2019-05-26] MEDS ORDERED: POTASSIUM CHLORIDE 20 MEQ in DEXTROSE 5% 1,000 ML IV SCH (13:30)
--- NOTE | 2019-05-26 13:34 | NUR ---
PULMONARY MEDICINE DATE OF ENCOUNTER: 05/26/2019 SUBJECTIVE: CXR yesteerday with clear lungs MRI brain mostly unremarkable nearly ao x 3 still moving a lot NGt with output still REVIEW OF SYSTEMS: Cannot get, poor communication OBJECTIVE: VITAL SIGNS: Vital signs stable, revied per record GENERAL: Generally in bed, awake HEENT: Normocephalic and atraumatic. NECK: Supple. Throat midline. LUNGS: Bilateral air entry, rare rhonchi CARDIOVASCULAR: S1 and S2. No murmurs, rubs, or gallops. ABDOMEN: Soft, postoperative. EXTREMITIES: No clubbing, no cyanosis, no edema. INTEGUMENT: No rash. No purpura. LABORATORY DATA: 3.4 k, cr 0.5, hco3 35 plt 99, hct 28 wbc 11.5 IMPRESSION AND PLAN: 1. Postoperative respiratory insufficiency. extubated 2. Admit with bowel obstruction + pneumatosis. 3. Postoperative state, s/p right hemicolectomy and ileostomy. 4. Chronic smoker. 5. Peripheral vascular disease. 6. History of multiple C. difficile episodes. 7. Chronic smoker. 8. Hypertension. 9. Arthritis. 10. Encephalopathy, toxic metabolic. 11. Anemia, moderate. 12. Hypokalemia. 13. Severe protein-calorie malnutrition. 14. ?choreoathetosis NOS. o2 per protocol continue to follow with neuro workup follow GI outputs start tpn, NO GI feeds expectant soon supportive care Antibiotics to be continued. Diet per surgeon, NPO still for now due to GI outputs Thank you very much, Dr. Palm for allowing me a chance to participate in the care of Ms. Rader. Please call with any questions.
--- NOTE | 2019-05-26 15:42 | NUR ---
Nutrition Follow-up Note RD Recommendation for Physician: The patient meets criteria for SEVERE protein-calorie malnutrition. - Per current GI status, recommend initiating central PN @50mL/hr, Dextrose 180 g/day, AA10% 60 g/day, 25g lipid (M,W,F), no Sodium at this time, KCl 30 mEq/L, KPhos 12 mmol/L, Ca Gluconate 5 mEq/L, Mg Sulfate 12 mEq/L. Add MVI, trace, and thiamine. (948kcal, 60g protein meet 76% est calorie and 100% protein needs) - Check Phos, Mg, and TG. While on TPN please check BMP with Mg and Phos daily. Check TG weekly. - Additional IVF/fluid management per MD. - When medically appropriate, rec advancing diet to GI soft. Plan of Care: RD following, monitoring for tolerance and adequacy, PN rec Nutrition reason for involvement: Follow up, NPO x 6 days Primary Diagnose(s): SBO PMH: C-diff, HTN, GERD, cholecystectomy Ht: 60in Wt: 105lb BMI: 20.5kg/m2 IBW: 100lb RD Assessment: 05/26: Pt was discussed during AM rounds. NPO day 6. Per RN, pt was still having large amount of dark drainage from NGT. Pt was extubated and placed on room air. No plan for PO intake soon. TPN was ordered to start tonight. Communicated PN rec with Dr. Sung. Will continue to monitor for labs and signs of refeeding syndrome. 05/24: Pt now intubated, s/p GI surgery yesterday. NGT in place with 600 ml greenish output noted, RN reports output since surgery yesterday. Pt agitated at time of visit, Propofol to be resumed. No family at bedside. BM this am. POC and rec's discussed with RN during am rounds. Per RN pt with central access. Chart reviewed. Will monitor and continue to follow. (05/20) Chart reviewed. Labs and meds reviewed. 73yo F, who was admitted for SBO. +NGT to [facility]. Visited pt in the room. IVF was running at 125mL/hr. Pt reported decreased meal intake x3 days. Pt stated I drank only water and pedialyte. UBW ~110lbs per pt. LBM 05/19, diarrhea. Pt has history of C diff in the past. Currently NPO. Will continue to monitor and follow. GI: LBM 05/26, + NGT with 700 ml output Skin: No PU Labs: 05/26: Na 155 H, K 3.4 L, creatinine 0.47 L, Glucose 54 L, Ca 7.6 L, Phos 1.7 L, Mg 1.2 L 05/24: Na 150, K 3.8, Cl 105, CO2 30, BUN 17, Cr 0.57, Gluc 108, Ca 7.8, Phos 2.1, Alb 1.6 Meds: KCl, cefepime, lopressor, pepcid, zofran Malnutrition Evaluation (05/26/2019) The patient meets criteria for SEVERE protein-calorie malnutrition. Energy intake: <50% of estimated energy requirements for >5 days Weight loss: >2% in 1 week (Acute) Fat loss: Moderate Muscle loss: Moderate Supporting Evidence: Fluid accumulation: unable to evaluate Functional Status: no changes Malnutrition Evaluation (05/20/2019) The patient does not meet criteria for a specified degree of malnutrition at this time. Will re-evaluate at follow-up as appropriate. Diet Education Needs Assessment: Diet education not indicated. Estimated Nutritional Needs: 1250 - 1500 calories/day (25-30 kcal/kg CBW) 50 - 75 g protein/day (1 1.5 g pro/kg CBW) Nutrition Prescription (Diet Order): NPO Diet Adequacy: Not meeting calorie needs, Not meeting protein needs Nutrition Care Level: High Nutrition Diagnosis: Inadequate energy and protein intake related to SBO and recent GI surgery as evidenced by NPO with NGT to LIWS and requiring nutrition support. Goal: Patient will meet 75-100% of estimated needs by follow up Progress: Not progressing Interventions: Composition, Rate, Route, IVF, Prescription medications, Recommended Modifications, Collaboration with other providers Monitoring/Evaluation: Total energy intake, Total protein intake, Formula/Solution, IVF, Prescription medication Signed: Saundra Padron MS, RD, LD
--- NOTE | 2019-05-26 19:00 | NUR ---
Report received. Assumed care. Assessment done. See interventions. Central line drsg change done with Bernardino Orozco RN.
--- NOTE | 2019-05-26 19:20 | NUR ---
Call to Dr. Sung re: IVF when TPN is started. Orders to DC IV D5W with 20 K when TPN up.
[2019-05-26] MEDS ORDERED: CENTRAL TPN FORMULA 1 BAG IV SCH (20:00)
[2019-05-26] MEDS ORDERED: DEXTROSE 50% SYRINGE 50 ML IV PRN (20:30)
[2019-05-26] MEDS ORDERED: SODIUM CHLORIDE 0.9% 250ML 250 ML ONE (21:19)
[2019-05-27] VITALS (27 sets, daily range): BP systolic 80–148; BP diastolic 23–124
[2019-05-27] MEDS: METOPROLOL TARTRATE INJ 1 MG/ML VIAL IV SCH ×5 (00:24→23:21)
[2019-05-27] MEDS: DIPHENHYDRAMINE HCL INJ 50 MG/ML VIAL IV SCH ×5 (00:24→23:18)
--- NOTE | 2019-05-27 02:56 | NUR ---
Very agitated. Combative. Hitting at nurses.
[2019-05-27 05:00] LABS: BASOPHILS # (AUTO) 0.1 (0.0-0.1); BASOPHILS % 0.5 % (0.0-1.0); EOSINOPHILS # (AUTO) 0.1 (0.0-0.4); EOSINOPHILS % 0.3 % (0.0-6.0); HEMATOCRIT 27.5 % (34.2-44.1); HEMOGLOBIN 8.3 g/dL (12.0-16.0); LYMPHOCYTES # (AUTO) 1.5 (1.0-3.2); LYMPHOCYTES % 8.4 % (18.0-39.1); MEAN CORPUSCULAR HEMOGLOBIN 30.1 pg (28-32); MEAN CORPUSCULAR HGB CONC 30.2 g/dL (31-35); MEAN CORPUSCULAR VOLUME 99.6 fL (81-99); MONOCYTES # (AUTO) 1.2 (0.2-0.8); MONOCYTES % 6.4 % (4.4-11.3); NEUTROPHILS % 78.6 % (38.7-80.0); PLATELET COUNT 149 x10e3/uL (140-360); RED BLOOD COUNT 2.76 x10e6/uL (3.6-5.1); RED CELL DISTRIBUTION WIDTH 15.8 % (11.7-14.4)
[2019-05-27 05:19] LABS: ALANINE AMINOTRANSFERASE 8 IU/L (0-55); ALBUMIN 1.8 g/dL (3.5-5.0); ALBUMIN/GLOBULIN RATIO 0.6 (0.8-2.0); ALKALINE PHOSPHATASE 65 IU/L (40-150); ANION GAP 13.8 mmol/L (8-16); BLOOD UREA NITROGEN 16 mg/dL (7-26); BUN/CREATININE RATIO 26 (6-25); CALCIUM 7.5 mg/dL (8.4-10.2); CARBON DIOXIDE 38 mmol/L (22-29); CHLORIDE 101 mmol/L (98-107); CREATININE, SERUM 0.61 mg/dL (0.57-1.11); EST GLOMERULAR FILTRATION RATE > 60 ML/MIN (60-); GLUCOSE 258 mg/dL (74-118); MAGNESIUM 1.3 MG/DL (1.3-2.1); PHOSPHORUS 3.3 MG/DL (2.3-4.7); POTASSIUM 3.8 mmol/L (3.5-5.1); SODIUM 149 mmol/L (136-145)
[2019-05-27] MEDS: CEFEPIME 1GM/NS 0.9% 50 ML 50 ML IV SCH ×3 (05:30→22:22)
[2019-05-27] MEDS: INSULIN REGULAR, HUMAN 100 UNIT/1 ML 3ML VIAL SQ SCH ×3 (06:00→17:38)
[2019-05-27] MEDS: METRONIDAZOLE 500MG/NS 100ML 100 ML IV SCH ×3 (06:12→23:17)
[2019-05-27] MEDS: BALSAM PERU/CASTOR OIL 60 GM OINT...G. TP SCH (09:12)
[2019-05-27] MEDS: FAMOTIDINE 20 MG/2 ML VIAL IV SCH (09:24)
[2019-05-27] MEDS: MORPHINE SULFATE INJ 4 MG/ML INJ 1ML IV PRN ×2 (09:46→22:18)
[2019-05-27 10:40] LABS: BAND NEUTROPHILS % (MANUAL) 4 %; EOSINOPHILS % (MANUAL) 3 % (0-7); LYMPHOCYTES % (MANUAL) 8 % (19-48); MONOCYTES % (MANUAL) 13 % (3.4-9.0); NEUTROPHILS % (MANUAL) 68 % (40-74)
[2019-05-27 10:41] LABS: ANISOCYTOSIS SLIGHT; PLATELET ESTIMATE ADEQUATE; PLATELET MORPHOLOGY COMMENT NORMAL; POIKILOCYTOSIS SLIGHT; POLYCHROMASIA FEW; RBC MORPHOLOGY COMMENT ABNORMAL
[2019-05-27] MEDS ORDERED: MICAFUNGIN SODIUM 100 ML IV SCH (11:00)
[2019-05-27] MEDS ORDERED: SODIUM CHLORIDE 0.9% 100 ML ONE (11:49)
--- NOTE | 2019-05-27 13:07 | NUR ---
PULMONARY MEDICINE DATE OF ENCOUNTER: 05/27/2019 SUBJECTIVE: TPN 30% dextrose ongoing, 50 cc/hr rate RA fio2 98% saturation NGT 500 cc out over 5-6 hours on mittens so she doesnt pull REVIEW OF SYSTEMS: Cannot get, poor communication OBJECTIVE: VITAL SIGNS: Vital signs stable, revied per record GENERAL: Generally in bed, awake. Moves a lot HEENT: Normocephalic and atraumatic. NECK: Supple. Throat midline. LUNGS: Bilateral air entry, rare rhonchi CARDIOVASCULAR: S1 and S2. No murmurs, rubs, or gallops. ABDOMEN: Soft, postoperative. EXTREMITIES: No clubbing, no cyanosis, no edema. INTEGUMENT: No rash. No purpura. LABORATORY DATA: 3.8 k, cr .61. hco3 38. 18 wbc, 28 hct, plt 149 IMPRESSION AND PLAN: 1. Postoperative respiratory insufficiency. extubated 2. Admit with bowel obstruction + pneumatosis. 3. Postoperative state, s/p right hemicolectomy and ileostomy. 4. Chronic smoker. 5. Peripheral vascular disease. 6. History of multiple C. difficile episodes. 7. Chronic smoker. 8. Hypertension. 9. Arthritis. 10. Encephalopathy, toxic metabolic. 11. Anemia, moderate. 12. Hypokalemia. 13. Severe protein-calorie malnutrition. 14. ?choreoathetosis NOS. o2 per protocol continue to follow with neuro workup. follow GI outputs continue tpn, no GI feeds yet -diet per surgeon. may or may not require a speech therapy evaluation d/c garcia supportive care Antibiotics to be continued. Thank you very much, Dr. Palm for allowing me a chance to participate in the care of Ms. Rader. Please call with any questions.
--- NOTE | 2019-05-27 15:51 | Diagnostic Imaging Report ---
Examination: Single AP view of the chest. COMPARISON: None. INDICATION: Evaluate for aspiration DISCUSSION: Lines/tubes: Right IJ catheter with tip over the SVC. Enteric tube with distal tip not visualized. Lungs: The lungs are well inflated and clear. No pneumonia or pulmonary edema. Pleura: No pleural effusion or pneumothorax. Heart and mediastinum: The heart and the mediastinum are unremarkable. Bones and soft tissues: No acute bony abnormalities. IMPRESSION: 1. No acute cardiopulmonary abnormalities. Signed by: Dr. Dejuan Bundy M.D. on 05/27/2019 3:48 PM
--- NOTE | 2019-05-27 19:09 | Progress Note ---
DATE: 05/27/2019 Cardiology Progress Note SUBJECTIVE: The patient is confused with involuntary movements. OBJECTIVE: VITAL SIGNS: Temperature 96.7, heart rate is 110, blood pressure is 124/104, ox saturation 97% on room air. GENERAL: She is a chronically ill-appearing woman with involuntary movements, altered mental status. CARDIOVASCULAR: She is tachycardic. LUNGS: Clear auscultation. ABDOMEN: Soft, nontender, nondistended. CARDIOVASCULAR MEDICATIONS: Reviewed. LABORATORY DATA: Reviewed. Hemoglobin is 8.3, white blood cell count is 17.8. Creatinine 0.6. IMPRESSION: 1. Small-bowel obstruction, status post colectomy and ileostomy. 2. Leukocytosis. 3. Anemia. 4. Electrolyte abnormalities. 5. Peripheral artery disease, status post aortobifemoral bypass. 6. Altered mental status. 7. Involuntary movements. RECOMMENDATIONS: Recent echocardiogram showed preserved left ventricular systolic function. When she is able to tolerate oral medications start p.o. metoprolol. In the meantime, continue intravenous metoprolol. Continue to monitor closely on telemetry. Nikunj Zhu DO BM/MODL /[id number]
--- NOTE | 2019-05-27 20:15 | NUR ---
Stoma dark, moist, scant brown/reddish drainage. Area superior to the stoma appears like bowel and is firm, dark, and dry. Paged and spoke with Dr Florez to report. States he will look at it in the morning. No new orders. Will monitor.
[2019-05-27] MEDS: CENTRAL TPN FORMULA 1 BAG IV SCH (20:44)
[2019-05-28] VITALS (18 sets, daily range): BP systolic 93–138; BP diastolic 57–105
[2019-05-28 05:27] LABS: BASOPHILS # (AUTO) 0.1 (0.0-0.1); BASOPHILS % 0.5 % (0.0-1.0); EOSINOPHILS % 0.3 % (0.0-6.0); HEMATOCRIT 25.8 % (34.2-44.1); HEMOGLOBIN 8.2 g/dL (12.0-16.0); LYMPHOCYTES # (AUTO) 1.8 (1.0-3.2); LYMPHOCYTES % 13.1 % (18.0-39.1); MEAN CORPUSCULAR HEMOGLOBIN 31.7 pg (28-32); MEAN CORPUSCULAR HGB CONC 31.8 g/dL (31-35); MEAN CORPUSCULAR VOLUME 99.6 fL (81-99); MONOCYTES # (AUTO) 1.5 (0.2-0.8); NEUTROPHILS # (AUTO) 9.6 (2.1-6.9); PLATELET COUNT 148 x10e3/uL (140-360); RED BLOOD COUNT 2.59 x10e6/uL (3.6-5.1); RED CELL DISTRIBUTION WIDTH 15.8 % (11.7-14.4)
[2019-05-28] MEDS: DIPHENHYDRAMINE HCL INJ 50 MG/ML VIAL IV SCH (05:28)
[2019-05-28] MEDS: INSULIN REGULAR, HUMAN 100 UNIT/1 ML 3ML VIAL SQ SCH ×5 (05:29→23:51)
[2019-05-28] MEDS: MORPHINE SULFATE INJ 4 MG/ML INJ 1ML IV PRN ×2 (05:30→14:23)
[2019-05-28 05:46] LABS: ANION GAP 16.5 mmol/L (8-16); BLOOD UREA NITROGEN 21 mg/dL (7-26); BUN/CREATININE RATIO 36 (6-25); CALCIUM 7.7 mg/dL (8.4-10.2); CARBON DIOXIDE 38 mmol/L (22-29); CHLORIDE 105 mmol/L (98-107); CREATININE, SERUM 0.59 mg/dL (0.57-1.11); EST GLOMERULAR FILTRATION RATE > 60 ML/MIN (60-); GLUCOSE 109 mg/dL (74-118); MAGNESIUM 1.7 MG/DL (1.3-2.1); POTASSIUM 3.5 mmol/L (3.5-5.1); SODIUM 156 mmol/L (136-145)
[2019-05-28] MEDS: CEFEPIME 1GM/NS 0.9% 50 ML 50 ML IV SCH ×3 (06:03→22:14)
[2019-05-28] MEDS: METOPROLOL TARTRATE INJ 1 MG/ML VIAL IV SCH ×3 (06:04→17:32)
[2019-05-28] MEDS: METRONIDAZOLE 500MG/NS 100ML 100 ML IV SCH ×3 (06:05→21:18)
[2019-05-28 08:03] LABS: LYMPHOCYTES % (MANUAL) 11 % (19-48); MONOCYTES % (MANUAL) 11 % (3.4-9.0); NEUTROPHILS % (MANUAL) 78 % (40-74); PLATELET ESTIMATE SLIGHTLY DECREASED; RBC MORPHOLOGY COMMENT NORMAL
[2019-05-28] MEDS ORDERED: SODIUM CHLORIDE 0.9% 100 ML ONE (08:45)
[2019-05-28] MEDS: FAMOTIDINE 20 MG/2 ML VIAL IV SCH (08:52)
[2019-05-28] MEDS: BALSAM PERU/CASTOR OIL 60 GM OINT...G. TP SCH (08:52)
[2019-05-28] MEDS: MICAFUNGIN SODIUM 100 ML IV SCH (08:52)
[2019-05-28] MEDS ORDERED: MICAFUNGIN SODIUM 50 MG/50 ML BAG IV SCH (09:00)
--- NOTE | 2019-05-28 12:56 | NUR ---
Nutrition Follow up note RD Recommendation for Physician: The patient meets criteria for SEVERE protein-calorie malnutrition. - Continue PN/IV lipids as ordered - Check Phos, Mg, and TG. While on TPN please check BMP with Mg and Phos daily. Check TG weekly. - Additional IVF/fluid management per MD. - When medically appropriate, rec advancing diet to GI soft. Plan of Care: RD following, monitoring for tolerance and adequacy, PN rec Nutrition reason for involvement: Follow up, On PN Primary Diagnose(s): SBO PMH: C-diff, HTN, GERD, cholecystectomy Ht: 60in Wt: 108.13lb BMI: 21.1kg/m2 IBW: 100lb RD Assessment: 05/28: Visited Pt today. 3 -in - 1 PN infusing at 50ml/hr with 30% dextrose(600ml), 10% AA (600ml) and 10% IV Lipid emulsion 250ml to provide a total of 1102 kcals and 60g of protein. 05/26: Pt was discussed during AM rounds. NPO day 6. Per RN, pt was still having large amount of dark drainage from NGT. Pt was extubated and placed on room air. No plan for PO intake soon. TPN was ordered to start tonight. Communicated PN rec with Dr. Sung. Will continue to monitor for labs and signs of refeeding syndrome. 05/24: Pt now intubated, s/p GI surgery yesterday. NGT in place with 600 ml greenish output noted, RN reports output since surgery yesterday. Pt agitated at time of visit, Propofol to be resumed. No family at bedside. BM this am. POC and rec's discussed with RN during am rounds. Per RN pt with central access. Chart reviewed. Will monitor and continue to follow. (05/20) Chart reviewed. Labs and meds reviewed. 73yo F, who was admitted for SBO. +NGT to LIS. Visited pt in the room. IVF was running at 125mL/hr. Pt reported decreased meal intake x3 days. Pt stated I drank only water and pedialyte. UBW ~110lbs per pt. LBM 05/19, diarrhea. Pt has history of C diff in the past. Currently NPO. Will continue to monitor and follow. GI: 05/28: Decreased NGT output. LBM 05/26, + NGT with 700 ml output Skin: No PU Labs: 05/28: Na 156. glucose 185, Bun/Cr 21/.59, Ca7.7, Mg 1.7, No Phosphorus 05/26: Na 155 H, K 3.4 L, creatinine 0.47 L, Glucose 54 L, Ca 7.6 L, Phos 1.7 L, Mg 1.2 L 05/24: Na 150, K 3.8, Cl 105, CO2 30, BUN 17, Cr 0.57, Gluc 108, Ca 7.8, Phos 2.1, Alb 1.6 Meds: KCl, cefepime, lopressor, pepcid, zofran Malnutrition Evaluation (05/26/2019) The patient meets criteria for SEVERE protein-calorie malnutrition. Energy intake: <50% of estimated energy requirements for >5 days Weight loss: >2% in 1 week (Acute) Fat loss: Moderate Muscle loss: Moderate Supporting Evidence: Fluid accumulation: unable to evaluate Functional Status: no changes Malnutrition Evaluation (05/20/2019) The patient does not meet criteria for a specified degree of malnutrition at this time. Will re-evaluate at follow-up as appropriate. Diet Education Needs Assessment: Diet education not indicated. Estimated Nutritional Needs: 1250 - 1500 calories/day (25-30 kcal/kg CBW) 50 - 75 g protein/day (1 1.5 g pro/kg CBW) Nutrition Prescription (Diet Order): NPO Diet Adequacy: Not meeting calorie needs, Not meeting protein needs Nutrition Care Level: High Nutrition Diagnosis: Inadequate energy and protein intake related to SBO and recent GI surgery as evidenced by NPO with NGT to LIWS and requiring nutrition support. Goal: Patient will meet 75-100% of estimated needs by follow up Progress: progressing Interventions: Composition, Rate, Route, IVF, Prescription medications, Recommended Modifications, Collaboration with other providers Monitoring/Evaluation: Total energy intake, Total protein intake, Formula/Solution, IVF, Prescription medication Kunal Ayers RD,LD, CNSC
--- NOTE | 2019-05-28 13:40 | NUR ---
report called to [facility] 207, son notified of pt transfer. telemetry on. no changes in condition or care. pt transferred via bed
--- NOTE | 2019-05-28 14:07 | NUR ---
PULMONARY MEDICINE DATE OF ENCOUNTER: 05/28/2019 SUBJECTIVE: 1 L/min oxygen NGT in place, less output today. 100 cc/5 hrs patient now off benadryl, remains with near persistent athetosis REVIEW OF SYSTEMS: Cannot get, poor communication OBJECTIVE: VITAL SIGNS: Vital signs stable, reviewed per record GENERAL: Generally in bed, awake. Moves a lot HEENT: Normocephalic and atraumatic. NECK: Supple. Throat midline. LUNGS: Bilateral air entry, rare rhonchi CARDIOVASCULAR: S1 and S2. No murmurs, rubs, or gallops. ABDOMEN: Soft, postoperative. EXTREMITIES: No clubbing, no cyanosis, no edema. INTEGUMENT: No rash. No purpura. LABORATORY DATA: 3.5 k, cr .6. 14 wbc. 26 hct, plt 148 IMPRESSION AND PLAN: 1. Postoperative respiratory insufficiency. extubated 2. Admit with bowel obstruction + pneumatosis. 3. Postoperative state, s/p right hemicolectomy and ileostomy. 4. Chronic smoker. 5. Peripheral vascular disease. 6. History of multiple C. difficile episodes. 7. Chronic smoker. 8. Hypertension. 9. Arthritis. 10. Encephalopathy, toxic metabolic. 11. Anemia, moderate. 12. Hypokalemia. 13. Severe protein-calorie malnutrition. 14. ?choreoathetosis NOS. Medication reaction vs other. O2 per protocol continue to follow with neuro workup. follow GI outputs no GI feeds yet, TPN needs per surgery -diet per surgeon. may or may not require a speech therapy evaluation once she is eating, based on her neurologic status supportive care Antibiotics to be continued. Thank you very much, Dr. Palm for allowing me a chance to participate in the care of Ms. Rader. Please call with any questions.
[2019-05-28] MEDS ORDERED: POTASSIUM CHLORIDE 20MEQ/100ML 200 ML IV ONE (14:15)
[2019-05-28] MEDS ORDERED: DEXTROSE 5% 1,000 ML IV ONE (14:15)
--- NOTE | 2019-05-28 16:53 | Progress Note ---
DATE: 05/28/2019 SUBJECTIVE: Ms. Rader is doing better. She is still have extrapyramidal movement, NG tube in. But she is not in ICU. PHYSICAL EXAMINATION: GENERAL: She is alert, comfortable, follows commands. VITAL STABLE: Stable, currently afebrile. HEENT: She is not icteric. NECK: Supple. CHEST: Few crackles at the bases. HEART: S1, S2. No S3, S4, no murmur. ABDOMEN: Soft. Bowel sounds present. No tenderness. EXTREMITIES: No edema. IMPRESSION: 1. Small bowel obstruction, status post colectomy, status post ileostomy. 2. Leukocytosis is better. 3. Altered mental status, clinically better. Continue with her cefepime, metronidazole and micafungin. Plan 14 days. We will consider neuro evaluation. We will follow. MD PORTIA Saldivar/NINA /[id number]
[2019-05-28] MEDS: CENTRAL TPN FORMULA 1 BAG IV SCH (20:20)
[2019-05-29] VITALS (8 sets, daily range): BP systolic 120–157; BP diastolic 65–77
[2019-05-29] MEDS: METOPROLOL TARTRATE INJ 1 MG/ML VIAL IV SCH ×5 (00:09→23:41)
[2019-05-29] MEDS: ZIPRASIDONE 20 MG VIAL IM PRN ×2 (01:40→22:07)
--- NOTE | 2019-05-29 01:40 | NUR ---
Patient hitting nurse and attempted to pull out NGT and Central Line. Garland given IM.
--- NOTE | 2019-05-29 02:10 | NUR ---
Patient resting comfortably at this time. No involuntary movements at this time. O2 sat 99%. Sitter at bedside.
[2019-05-29 04:22] LABS: BASOPHILS % 0.3 % (0.0-1.0); EOSINOPHILS # (AUTO) 0.1 (0.0-0.4); EOSINOPHILS % 0.8 % (0.0-6.0); HEMATOCRIT 24.7 % (34.2-44.1); HEMOGLOBIN 7.7 g/dL (12.0-16.0); LYMPHOCYTES # (AUTO) 1.4 (1.0-3.2); LYMPHOCYTES % 13.7 % (18.0-39.1); MEAN CORPUSCULAR HEMOGLOBIN 30.9 pg (28-32); MEAN CORPUSCULAR HGB CONC 31.2 g/dL (31-35); MEAN CORPUSCULAR VOLUME 99.2 fL (81-99); MONOCYTES # (AUTO) 0.8 (0.2-0.8); MONOCYTES % 8.2 % (4.4-11.3); NEUTROPHILS # (AUTO) 7.2 (2.1-6.9); NEUTROPHILS % 71.5 % (38.7-80.0); PLATELET COUNT 147 x10e3/uL (140-360); RED BLOOD COUNT 2.49 x10e6/uL (3.6-5.1); RED CELL DISTRIBUTION WIDTH 15.5 % (11.7-14.4)
[2019-05-29 04:47] LABS: ALBUMIN 1.7 g/dL (3.5-5.0); ALBUMIN/GLOBULIN RATIO 0.6 (0.8-2.0); ALKALINE PHOSPHATASE 54 IU/L (40-150); ANION GAP 11.8 mmol/L (8-16); BLOOD UREA NITROGEN 23 mg/dL (7-26); BUN/CREATININE RATIO 37 (6-25); CALCIUM 7.7 mg/dL (8.4-10.2); CARBON DIOXIDE 33 mmol/L (22-29); CHLORIDE 105 mmol/L (98-107); CREATININE, SERUM 0.62 mg/dL (0.57-1.11); EST GLOMERULAR FILTRATION RATE > 60 ML/MIN (60-); GLUCOSE 228 mg/dL (74-118); MAGNESIUM 1.9 MG/DL (1.3-2.1); PHOSPHORUS 3.1 MG/DL (2.3-4.7); POTASSIUM 3.8 mmol/L (3.5-5.1); SODIUM 146 mmol/L (136-145)
[2019-05-29 04:51] LABS: ALANINE AMINOTRANSFERASE < 6 IU/L (0-55)
[2019-05-29] MEDS: METRONIDAZOLE 500MG/NS 100ML 100 ML IV SCH ×3 (05:41→20:16)
[2019-05-29] MEDS: CEFEPIME 1GM/NS 0.9% 50 ML 50 ML IV SCH ×3 (05:59→21:08)
[2019-05-29] MEDS: INSULIN REGULAR, HUMAN 100 UNIT/1 ML 3ML VIAL SQ SCH ×4 (06:00→23:47)
[2019-05-29] MEDS: FAMOTIDINE 20 MG/2 ML VIAL IV SCH (08:40)
[2019-05-29] MEDS: MICAFUNGIN SODIUM 100 ML IV SCH (08:50)
[2019-05-29 09:08] LABS: LYMPHOCYTES % (MANUAL) 11 % (19-48); MONOCYTES % (MANUAL) 8 % (3.4-9.0); NEUTROPHILS % (MANUAL) 81 % (40-74); PLATELET ESTIMATE MODERATELY DECREASED; RBC MORPHOLOGY COMMENT NORMAL
--- NOTE | 2019-05-29 11:21 | Progress Note ---
DATE: 05/29/2019 SUBJECTIVE: The patient is a 74-year-old female, who comes in status post colon resection for small bowel obstruction. The patient also had ileostomy done. The patient is currently very agitated, has sitter by the bedside. Has been agitated throughout the night. Sedative has been given to the patient and still agitation noted. Complains of pain in the right hip and the knee on movement, and family has been notified. OBJECTIVE: VITAL SIGNS: Temperature is 97.7, pulse of 78, respirations of 20, blood pressure is 137/71, and pulse oximetry of 95% on room air. HEENT: Normocephalic, atraumatic. GENERAL: The patient is alert, but not oriented to time, place, and/or person and very difficult to talk with, arousable. CVS: S1, S2. Regular rate and rhythm. ABDOMEN: Nontender, nondistended. Positive for ileostomy. EXTREMITIES: No clubbing, no cyanosis, and no edema. LABORATORY VALUES: White count is 10.8, hemoglobin of 7.7, hematocrit of 24.7. Chemistry shows sodium of 146, BUN of 23, creatinine 0.62, glucose is 228. The patient's ALT and AST are normal. MEDICATIONS: The patient is on a TPN at this point of time. The patient is getting metoprolol 5 mg as needed, insulin q.6 hours. She is on cefepime, Flagyl and for antibiotic, she is on Geodon 10 mg q.8 hours p.r.n. for agitation and she is also on micafungin 100 mL/h, also getting hydralazine as needed for blood sugar control. ASSESSMENT: 1. Small bowel obstruction, status post colectomy and ileostomy. 2. Leukocytosis, which is improving. 3. Anemia, which is deteriorating. 4. Electrolyte abnormalities. Continue monitoring the patient and replacing as needed. 5. Peripheral arterial disease, status post aortic bifemoral bypass. The patient has a lot of involuntary movements, chorea like movement and also altered mental status changes with possible dementia. The patient has a right hip pain and right knee pain. We will do an x-ray. Overall prognosis is guarded and very poor. We will continue to monitor the patient. The patient is on TPN, has hyponatremia. We will increase the free water. Further recommendation per clinical course. We will continue to monitor the patient. Consultants following are Neurology, ID, and Cardiology. MD THOMAS Miguel/NINA /[id number]
--- NOTE | 2019-05-29 13:58 | Diagnostic Imaging Report ---
Exam: Right hip radiograph-1 view; AP radiograph of the pelvis-1 view; right knee radiographs-2 views History: Pain. Comparison: CT abdomen/pelvis 05/19/2019. Findings: Diffuse osteopenia which somewhat limits evaluation. No evidence of acute displaced fracture or malalignment. Mild bilateral hip degenerative changes. Moderate medial compartment predominant tricompartmental degenerative changes of the right knee. Diffuse extensive atherosclerotic vascular calcifications. Surgical clips project over the left lower abdomen and left inguinal region. Impression: No acute radiographic abnormality. Signed by: Dr. Gris Haider MD on 05/29/2019 1:55 PM
[2019-05-29] MEDS ORDERED: SODIUM CHLORIDE 0.9% 250ML 250 ML ONE (14:25)
--- NOTE | 2019-05-29 15:17 | NUR ---
PULMONARY MEDICINE DATE OF ENCOUNTER: 05/29/2019 SUBJECTIVE: geodon given for agitation awake, less athetosis NGT in, > 1000 cc out stable mentation REVIEW OF SYSTEMS: Cannot get, poor communication OBJECTIVE: VITAL SIGNS: Vital signs stable, reviewed per record GENERAL: Generally in bed, awake. Moves a lot HEENT: Normocephalic and atraumatic. NECK: Supple. Throat midline. LUNGS: Bilateral air entry, rare rhonchi CARDIOVASCULAR: S1 and S2. No murmurs, rubs, or gallops. ABDOMEN: Soft, postoperative. EXTREMITIES: No clubbing, no cyanosis, no edema. INTEGUMENT: No rash. No purpura. LABORATORY DATA: 3.8 k, cr .6. 10 wbc. 25 hct. IMPRESSION AND PLAN: 1. Postoperative respiratory insufficiency. extubated 2. Admit with bowel obstruction + pneumatosis. 3. Postoperative state, s/p right hemicolectomy and ileostomy. 4. Chronic smoker. 5. Peripheral vascular disease. 6. History of multiple C. difficile episodes. 7. Chronic smoker. 8. Hypertension. 9. Arthritis. 10. Encephalopathy, toxic metabolic. 11. Anemia, moderate. 12. Hypokalemia. 13. Severe protein-calorie malnutrition. 14. ?choreoathetosis NOS. Medication reaction vs other. O2 per protocol continue to follow with neuro workup. follow GI outputs, consider d/c NGT when outputs low no GI feeds yet, TPN needs per surgery -diet per surgeon when the GI tract is functional. -may or may not require a speech therapy evaluation once she is eating, based on her neurologic status and oropharyngeal control supportive care Antibiotics to be continued. Thank you very much, Dr. Palm for allowing me a chance to participate in the care of Ms. Rader. Please call with any questions.
[2019-05-29] MEDS ORDERED: POTASSIUM CHLORIDE 20MEQ/100ML 100 ML IV ONE (15:30)
[2019-05-29] MEDS: BALSAM PERU/CASTOR OIL 60 GM OINT...G. TP SCH (16:02)
[2019-05-29] MEDS: CENTRAL TPN FORMULA 1 BAG IV SCH (20:16)
--- NOTE | 2019-05-29 22:07 | NUR ---
Patient attempted to pull out ngt and central line multiple times. Instructions given multiple times. Prn med given.
[2019-05-30] VITALS (9 sets, daily range): BP systolic 121–148; BP diastolic 62–84
--- NOTE | 2019-05-30 05:05 | Progress Note ---
DATE: 05/24/2019 Cardiology Progress Note SUBJECTIVE: No major events overnight. OBJECTIVE: VITAL SIGNS: Temperature afebrile, pulse 87, respiratory rate 20, blood pressure 130/66, saturating 95% on room air. GENERAL: Elderly female, in no acute distress. CARDIOVASCULAR: Regular rate and rhythm. No murmurs, rubs, or gallops. LUNGS: Clear to auscultation. ABDOMEN: Soft, nontender, and nondistended. NEURO AND PSYCH: Alert and oriented to person, place, and time. Normal affect. INPATIENT MEDICATIONS: Reviewed. LABORATORY DATA: Reviewed. TELEMETRY DATA: Reviewed, shows sinus rhythm with PACs. ASSESSMENT: 1. Small-bowel obstruction, status post colectomy and ileostomy. 2. Leukocytosis. 3. Anemia. 4. Electrolyte abnormalities. 5. Peripheral arterial disease, status post aortobifemoral bypass. 6. Altered mental status. 7. Involuntary movement. RECOMMENDATIONS: Echocardiogram showed normal left ventricular ejection fraction. Continue IV metoprolol, convert to oral metoprolol once the patient is able to take oral medicine. Continue p.r.n. hydralazine for hypertension. Thank you for this consult. We will continue to follow. MD MANDY Matthews/KARONL /[id number]
[2019-05-30] MEDS: METRONIDAZOLE 500MG/NS 100ML 100 ML IV SCH ×3 (05:25→21:21)
[2019-05-30] MEDS: METOPROLOL TARTRATE INJ 1 MG/ML VIAL IV SCH ×3 (05:26→18:11)
[2019-05-30 05:39] LABS: BASOPHILS % 0.4 % (0.0-1.0); EOSINOPHILS % 0.4 % (0.0-6.0); HEMATOCRIT 25.5 % (34.2-44.1); HEMOGLOBIN 8.2 g/dL (12.0-16.0); LYMPHOCYTES # (AUTO) 1.4 (1.0-3.2); LYMPHOCYTES % 12.6 % (18.0-39.1); MEAN CORPUSCULAR HEMOGLOBIN 31.3 pg (28-32); MEAN CORPUSCULAR HGB CONC 32.2 g/dL (31-35); MEAN CORPUSCULAR VOLUME 97.3 fL (81-99); MONOCYTES # (AUTO) 0.9 (0.2-0.8); MONOCYTES % 8.3 % (4.4-11.3); NEUTROPHILS # (AUTO) 7.9 (2.1-6.9); NEUTROPHILS % 73.5 % (38.7-80.0); PLATELET COUNT 152 x10e3/uL (140-360); RED BLOOD COUNT 2.62 x10e6/uL (3.6-5.1); RED CELL DISTRIBUTION WIDTH 15.8 % (11.7-14.4)
[2019-05-30] MEDS: CEFEPIME 1GM/NS 0.9% 50 ML 50 ML IV SCH ×3 (05:47→22:46)
[2019-05-30] MEDS: INSULIN REGULAR, HUMAN 100 UNIT/1 ML 3ML VIAL SQ SCH ×3 (06:02→18:00)
[2019-05-30 06:17] LABS: ALANINE AMINOTRANSFERASE 6 IU/L (0-55); ALBUMIN 1.7 g/dL (3.5-5.0); ALBUMIN/GLOBULIN RATIO 0.6 (0.8-2.0); ALKALINE PHOSPHATASE 56 IU/L (40-150); ANION GAP 12.7 mmol/L (8-16); BLOOD UREA NITROGEN 20 mg/dL (7-26); BUN/CREATININE RATIO 38 (6-25); CARBON DIOXIDE 31 mmol/L (22-29); CHLORIDE 103 mmol/L (98-107); CREATININE, SERUM 0.52 mg/dL (0.57-1.11); EST GLOMERULAR FILTRATION RATE > 60 ML/MIN (60-); GLUCOSE 177 mg/dL (74-118); POTASSIUM 3.7 mmol/L (3.5-5.1); SODIUM 143 mmol/L (136-145)
[2019-05-30] MEDS: MICAFUNGIN SODIUM 100 ML IV SCH (08:30)
[2019-05-30] MEDS: FAMOTIDINE 20 MG/2 ML VIAL IV SCH (08:30)
[2019-05-30] MEDS: BALSAM PERU/CASTOR OIL 60 GM OINT...G. TP SCH (09:03)
[2019-05-30 09:07] LABS: EOSINOPHILS % (MANUAL) 3 % (0-7); LYMPHOCYTES % (MANUAL) 15 % (19-48); MONOCYTES % (MANUAL) 8 % (3.4-9.0); NEUTROPHILS % (MANUAL) 74 % (40-74)
[2019-05-30 09:08] LABS: ANISOCYTOSIS SLIGHT; PLATELET ESTIMATE ADEQUATE; PLATELET MORPHOLOGY COMMENT NORMAL; POIKILOCYTOSIS SLIGHT; RBC MORPHOLOGY COMMENT NORMAL
--- NOTE | 2019-05-30 10:45 | NUR ---
Allenvyn dressing applied to sacral area, bony prominence observed. Blanchable to touch. Pt tolerated well. [place] foam boots applied to BLE. Stage 1 bilat heel wounds. New dressing applied to heels. [place]ward noted over abd incision site, dressing applied CDI. Ileostomy to R abd.
--- NOTE | 2019-05-30 11:02 | NUR ---
Spoke with Dr. Palm regarding DC plan. He gave order for LTAC eval. States pt can possibly discharge tomorrow. DIONTE called and spoke with pt's son Chencho Rader [phone]. Informed him of LTAC order. He states the family lives in [facility] and would like a facility closer to them. DIONTE informed him that the MDs here would not be following her if she goes to a facility over there and he was fine with it. Gave choice for [facility]. Choice letter placed in chart. Gave Mr. Rader DIONTE's contact information for any further questions. Alejandro Celaya and Camelia Sow with [facility] was notified of referral.
--- NOTE | 2019-05-30 11:29 | NUR ---
Clinicals faxed to [facility] at [phone]. Camelia Sow says she will be by later today to see pt.
--- NOTE | 2019-05-30 13:56 | NUR ---
PULMONARY MEDICINE DATE OF ENCOUNTER: 05/30/2019 SUBJECTIVE: awakens easily less movements NGT in place some GI output still REVIEW OF SYSTEMS: Cannot get, poor communication OBJECTIVE: VITAL SIGNS: Vital signs stable, reviewed per record GENERAL: Generally in bed, awake. Moves a lot HEENT: Normocephalic and atraumatic. NECK: Supple. Throat midline. LUNGS: Bilateral air entry, rare rhonchi CARDIOVASCULAR: S1 and S2. No murmurs, rubs, or gallops. ABDOMEN: Soft, postoperative. EXTREMITIES: No clubbing, no cyanosis, no edema. INTEGUMENT: No rash. No purpura. LABORATORY DATA: cr 0.52, co2 31. k 3.7. wbc 11, hct 26. IMPRESSION AND PLAN: 1. Postoperative respiratory insufficiency. extubated 2. Admit with bowel obstruction + pneumatosis. 3. Postoperative state, s/p right hemicolectomy and ileostomy. 4. Chronic smoker. 5. Peripheral vascular disease. 6. History of multiple C. difficile episodes. 7. Chronic smoker. 8. Hypertension. 9. Arthritis. 10. Encephalopathy, toxic metabolic. 11. Anemia, moderate. 12. Hypokalemia. 13. Severe protein-calorie malnutrition. 14. ?choreoathetosis NOS. Medication reaction vs other. O2 per protocol, wean off if possible continue to follow with neuro workup. follow GI outputs, consider d/c NGT when outputs low no GI feeds yet, TPN continue per surgery -diet per surgeon when the GI tract is functional. -may or may not require a speech therapy evaluation once she is eating, based on her neurologic status and oropharyngeal control supportive care Antibiotics to be continued. Thank you very much, Dr. Palm for allowing me a chance to participate in the care of Ms. Rader. Please call with any questions.
[2019-05-30] MEDS ORDERED: QUETIAPINE FUMARATE 25 MG TAB PO PRN (14:00)
[2019-05-30] MEDS ORDERED: SODIUM CHLORIDE 0.9% 250ML IRRIG IR SCH (14:00)
--- NOTE | 2019-05-30 14:00 | NUR ---
NG tube clamped at this time, per MD order.
--- NOTE | 2019-05-30 16:00 | NUR ---
Spoke with Myranda Neves with [facility]. She states pt looks good and should be able to transfer tomorrow. She has also spoken with pt's son Chencho Rader. CM will follow up with [facility] tomorrow morning for MOT.
--- NOTE | 2019-05-30 17:50 | NUR ---
NG tube removed at this time, tubing intact. Pt tolerated well. Will advance to clear liquid diet as tolerated per MD order.
--- NOTE | 2019-05-30 20:04 | Consultation ---
DATE OF CONSULTATION: 05/30/2019 Psychiatric Initial Evaluation REASON FOR CONSULTATION: For treatment and evaluation of the patient's confusion and agitation. HISTORY OF PRESENT ILLNESS: The patient is a 74-year-old female who was admitted to [facility] due to multiple medical problems. Psychiatric consult is called to evaluate the patient's confusion and agitation during her inpatient stay. Upon evaluation today, the patient is found to be lying on her bed. She is alert and awake, but very confused. She does not know where she is. She does not know the events that led to her current hospitalization. She is not able to answer any question in a meaningful way. She denies having any complaints. She does not report any side effects from her current medications. As per the nursing staff, the patient has been increasing confused and restless. She has been pulling on her IV lines and NG tube. She is hard to redirect. She has been getting p.r.n. medications for her confusion and agitation. PAST PSYCHIATRIC HISTORY: None reported. FAMILY HISTORY: None reported. SOCIAL HISTORY: The patient's son is involved in the patient's care, but the details are not available at this time. CURRENT LABS: WBC 10.73, hemoglobin 8.2, hematocrit 25.5, and platelets 152. Sodium 143, potassium 3.7, chloride 103, carbon dioxide 31, BUN 20, creatinine 0.52. AST 12, ALT 6, and alkaline phosphatase 56. CURRENT MEDICATIONS: 1. Cefepime. 2. Flagyl. 3. Pepcid. 4. P.r.n. morphine. 5. Geodon 10 mg IM q.8 hours p.r.n. for agitation. MENTAL STATUS EXAMINATION: The patient is an elderly female, who is currently lying on her bed . She is alert, awake, but oriented to only self. She does not know where she is. She appears anxious, but denies having any mood problems. She refused to participate for a complete mental status examination due to her confusion. IMPRESSION: Unspecified psychosis/delirium, multifactorial. PLAN OF CARE: 1. Continue Geodon 10 mg Im q.8 hours p.r.n. for agitation. 2. Add Seroquel 25 mg p.o. q.6 hours p.r.n. for agitation. 3. Monitor for agitation. We will continue to follow this patient during her inpatient stay for management of her psychiatric symptoms. Thank you very much for this consult. MD GURMEET Zamora/NINA /[id number]
[2019-05-30] MEDS: CENTRAL TPN FORMULA 1 BAG IV SCH (21:00)
[2019-05-30] MEDS: MORPHINE SULFATE INJ 4 MG/ML INJ 1ML IV PRN (22:49)
[2019-05-30] MEDS: ONDANSETRON HCL INJ 2MG/ML 2ML 2 MG/ML VIAL IV PRN (22:49)
[2019-05-30] MEDS ORDERED: SODIUM CHLORIDE 0.9% 250ML 250 ML ONE (22:53)
[2019-05-31] MEDS: METOPROLOL TARTRATE INJ 1 MG/ML VIAL IV SCH ×4 (00:55→18:35)
[2019-05-31] MEDS: INSULIN REGULAR, HUMAN 100 UNIT/1 ML 3ML VIAL SQ SCH ×4 (00:55→18:00)
--- NOTE | 2019-05-31 01:16 | Progress Note ---
DATE: 05/30/2019 Cardiology progress note. SUBJECTIVE: The patient did not respond to questions, currently confused. OBJECTIVE: VITAL SIGNS: Temperature 97.4 degrees, pulse 89, respiratory rate 20, blood pressure 144/67, oxygen saturation 98% on room air. GENERAL: Awake, but confused elderly female, no acute distress. LUNGS: Clear to auscultation bilaterally. No wheezes or crackles. CARDIOVASCULAR: Normal rate, regular rhythm. No murmur. Normal S1, S2. ABDOMEN: Soft and nontender. EXTREMITIES: No edema. CARDIAC MEDICATIONS: Metoprolol tartrate 25 mg IV q.6 hours. LABORATORY DATA: CBC 10.73, hemoglobin 8.2, hematocrit 25.5, and platelets 152. Sodium 143, potassium 3.7, chloride 100, CO2 of 31, BUN 20, creatinine 0.52. Telemetry, normal sinus rhythm. IMPRESSION: 1. Small-bowel obstruction, status post colectomy and ileostomy. 2. Leukocytosis. 3. Anemia. 4. Electrolyte abnormalities. 5. Peripheral artery disease, status post aortobifemoral bypass. 6. Altered mental status. RECOMMENDATIONS: Echocardiogram showed normal LV EF. Continue IV metoprolol. Convert to p.o. once the patient is able to tolerate p.o. intake. The patient's blood pressure is acceptable for her age. Continue current cardiac medications, resume aspirin and atorvastatin once oral access is reestablished. Thank you for this consult. We will continue to follow. Claribel Mcclure MD ABS/MODL /[id number]
[2019-05-31] MEDS: ZIPRASIDONE 20 MG VIAL IM PRN (01:30)
[2019-05-31 03:46] VITALS: BP 132/65
[2019-05-31] MEDS: CEFEPIME 1GM/NS 0.9% 50 ML 50 ML IV SCH ×2 (05:09→14:37)
[2019-05-31] MEDS: METRONIDAZOLE 500MG/NS 100ML 100 ML IV SCH ×2 (06:10→13:00)
--- NOTE | 2019-05-31 07:00 | NUR ---
BEDSIDE SHIFT REPORT RECEIVED FROM THE DAY CARE HOME MOTHER RN. PT IS CONFUSED. AAOX1. PT IS RESTING ON BED. NO SITTER AT BEDSIDE. BED ALARM IS ON. PT DENIES NEEDS AT THIS TIME.
[2019-05-31 08:00] VITALS: BP 124/63
[2019-05-31 08:31] VITALS: BP 124/63
--- NOTE | 2019-05-31 08:38 | Progress Note ---
DATE: 05/31/2019 SUBJECTIVE: The patient had her NG tube removed yesterday. The patient is going to actually start with some liquid diet today. The patient appears to be more calm. OBJECTIVE: VITAL SIGNS: Temperature 96.5, pulse 76, blood pressure 132/65, sats 100%. GENERAL: In no apparent distress, lying in bed. CARDIOVASCULAR: Regular rate and rhythm. LUNGS: Decreased breath sounds bilaterally. ABDOMEN: Good bowel sounds. Soft and nontender. Ileostomy bag is intact and appears to be functioning well. EXTREMITIES: No clubbing or cyanosis. NEUROLOGIC: Nonfocal. ASSESSMENT AND PLAN: 1. Status post ileostomy. Continue with current care. Since the patient is improving and the patient would like to eat today. 2. Sepsis secondary to peritonitis. We will continue with IV antibiotics evaluation. 3. Weakness. Continue with therapy. 4. Hypertension. Continue with current care. 5. Diabetes. Continue with current care and monitoring. Please see hospital chart for full details. MD BRIE Kee/MODL /[id number]
[2019-05-31] MEDS: MICAFUNGIN SODIUM 100 ML IV SCH (09:00)
[2019-05-31] MEDS: BALSAM PERU/CASTOR OIL 60 GM OINT...G. TP SCH (09:00)
[2019-05-31] MEDS: FAMOTIDINE 20 MG/2 ML VIAL IV SCH (09:00)
--- NOTE | 2019-05-31 09:48 | NUR ---
Spoke with CAITLIN Stack who states Dr. Palm is ok with transferring pt to LTAC today. DIONTE reached out to Camelia Sow and Alejandro Celaya with [facility] for MOT. Camelia states she will follow up with [facility] and get back with DIONTE.
[2019-05-31 12:00] VITALS: BP 154/79
--- NOTE | 2019-05-31 12:21 | NUR ---
Reached out to Camelia and Alejandro with [facility] for an update. Per Camelia, they are awaiting a response from [facility].
--- NOTE | 2019-05-31 13:11 | NUR ---
Patient has been accepted to: [facility] [address] [place] [address] [address] Rm 111 Tele Accepting MD: Dr. Landon Snow Accepting network systems administrator: Dillon Mahan [employer] Call report to [phone] The following documents must accompany patient for transfer: Chart copied by Mable manager community outreach MOT received from: Camelia Sow Physician's order/reconciled med list: bedside nursing [id number] DNR: n/a Notified CAITLIN Stack of MOT. Completed MOT placed with pt's packet at nurse's station. CM also called pt's son Chencho Rader and informed him of bed assignment. He asked that nursing call him with ETA of when his mother will transfer. CAITLIN Stack was informed of request and will call pt's son once discharge paperwork is completed.
--- NOTE | 2019-05-31 13:30 | NUR ---
OKAY TO TRANSFER PT PER DR. PECK, JOSE JIMENEZ AND DRAKE RODRIGUEZ
--- NOTE | 2019-05-31 14:00 | NUR ---
CALLED [facility] TO GIVE REPORT. CALL BACK AFTER 30 MINS PER THE NURSE.
--- NOTE | 2019-05-31 14:35 | NUR ---
CALLED [facility] TRANSFER REPORT. NURSE IS NOT AVAILABLE YET. WILL CALL BACK.
--- NOTE | 2019-05-31 15:00 | NUR ---
TRANSFER REPORT GIVEN TO [facility]. PT IS TRANSFERRING TO [id number] AT [place].
--- NOTE | 2019-05-31 15:15 | NUR ---
TELEPHONE CONSENT FROM PT SON LUTHER JEFFERSON. OKAY TO CALL [facility].
[2019-05-31 16:00] VITALS: BP 142/65
--- NOTE | 2019-05-31 16:30 | NUR ---
RIGHT FORE ARM 20G IV REMOVED. TIP INTACT. NO BLEEDING NOTED. DRESSING APPLIED. PT DENIED FURTHER NEEDS.
--- NOTE | 2019-05-31 18:30 | NUR ---
EMS TO DIRECTOR OF PHYSIOTHERAPY SERVICES THE PT. PT HAD MULTIPLE BM ON COLOSTOMY BAG.
--- NOTE | 2019-05-31 19:05 | NUR ---
PT TRANSFERRED SAFELY TO [place] VIA EMS. PT KEPT CLEAN WITH COLOSTOMY BAG. PT IS ALERT AND DENIED FURTHER NEEDS. RIJ IV KEPT WITH PT PER HAILE TUCKER REQUEST FOR FUTURE USE.
--- NOTE | 2019-05-31 21:38 | NUR ---
PULMONARY MEDICINE DATE OF ENCOUNTER: 05/31/2019 SUBJECTIVE: awakens easily less movements NGT out tpn 30% D at 50/hr REVIEW OF SYSTEMS: Cannot get, poor communication OBJECTIVE: VITAL SIGNS: Vital signs stable, reviewed per record GENERAL: Generally in bed, awake. Moves a lot HEENT: Normocephalic and atraumatic. NECK: Supple. Throat midline. LUNGS: Bilateral air entry, rare rhonchi CARDIOVASCULAR: S1 and S2. No murmurs, rubs, or gallops. ABDOMEN: Soft, postoperative. EXTREMITIES: No clubbing, no cyanosis, no edema. INTEGUMENT: No rash. No purpura. LABORATORY DATA: per EMR IMPRESSION AND PLAN: 1. Postoperative respiratory insufficiency. extubated 2. Admit with bowel obstruction + pneumatosis. 3. Postoperative state, s/p right hemicolectomy and ileostomy. 4. Chronic smoker. 5. Peripheral vascular disease. 6. History of multiple C. difficile episodes. 7. Chronic smoker. 8. Hypertension. 9. Arthritis. 10. Encephalopathy, toxic metabolic. 11. Anemia, moderate. 12. Hypokalemia. 13. Severe protein-calorie malnutrition. 14. ?choreoathetosis NOS. Medication reaction vs other. O2 per protocol, wean off continue continue to follow with neuro workup. d/c NGT start CLD, TPN continue per surgery -diet per surgeon when the GI tract is functional. -may or may not require a speech therapy evaluation once she is eating, based on her neurologic status and oropharyngeal control supportive care Antibiotics to be continued. Transfer to LT[facility] today Thank you very much, Dr. Palm for allowing me a chance to participate in the care of Ms. Rader. Please call with any questions.
--- NOTE | 2019-06-01 00:38 | Progress Note ---
DATE: 05/31/2019 Cardiology Progress Note SUBJECTIVE: The patient was somnolent. She did not answer questions. OBJECTIVE: VITAL SIGNS: Temperature 96.8 degrees, pulse 70, respiratory rate 20, blood pressure 134/63, and oxygen saturation 96% on room air. GENERAL: Elderly woman, frail, chronically ill-appearing, in no acute distress. LUNGS: Clear to auscultation bilaterally. No wheeze or crackles. CARDIOVASCULAR: Normal rate, regular rhythm. No murmur. Normal S1, S2. ABDOMEN: Soft, nontender. EXTREMITIES: No edema. CARDIAC MEDICATIONS: Metoprolol tartrate 25 mg IV q.6 hours. LABORATORY DATA: None today. TELEMETRY: Normal sinus rhythm. IMPRESSION: 1. Small-bowel obstruction, status post colectomy and ileostomy. 2. Leukocytosis. 3. Anemia. 4. Electrolyte abnormalities. 5. Peripheral artery disease, status post aortobifemoral bypass. 6. Altered mental status. RECOMMENDATIONS: Echocardiogram showed normal LV systolic function. Continue IV metoprolol. Convert to p.o. once the patient is able to tolerate p.o. intake. The patient's blood pressure is acceptable for her age. Resume aspirin and atorvastatin once oral access have been reestablished. Thank you for this consult. We will continue to follow. Claribel Mcclure MD ABS/MODL /[id number]
--- NOTE | 2019-06-12 17:25 | Discharge Summary ---
DISCHARGE DIAGNOSES: 1. Mesenteric ischemia with ischemic bowel, status post partial colectomy. 2. 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 HISTORY OF PRESENT ILLNESS AND HOSPITAL COURSE: See hospital chart for full details since her discharge summary is not all encompassing, but the patient came with acute abdominal pain and lactic acid, where she was felt to have an ischemic bowel, which she then went to the OR with the surgeon where he did find a large amount of ischemic bowel, which had to be removed surgically. Postoperatively, she did have some episodes of acute psychosis that had improved by the time of discharge to [place]. At the time of discharge, the patient was hemodynamically stable. She was improving, but she needed a lot of nutritional support and rehab as well as continued IV antibiotics. So therefore, the patient was then transferred to [place] for care her family for further evaluation and care. Please see hospital chart for full details since her discharge summary is not all encompassing. MD BRIE Kee/NINA /[id number]
== END 2019-05-31 19:14 | DRG 329 ==
LOC: ER 19:16 → ERHOLD 21:47 → MED/SURG3 22:31 → ICU 05-23 16:48 → MED/SURG2 05-28 14:14
PROVIDERS: ADMIT Internal Medicine; ATTEND Internal Medicine
PROC: 0D1B0Z4 Bypass Ileum to Cutaneous, Open Approach (ICD-10-PCS; principal; 2019-05-19)
PROC: 0DTF0ZZ Resection of Right Large Intestine, Open Approach (ICD-10-PCS; 2019-05-19)
DX: K56.609 Unspecified intestinal obstruction, unspecified as to partial versus complete obstruction (principal); J69.0 Pneumonitis due to inhalation of food and vomit; G92 Toxic encephalopathy; E43 Unspecified severe protein-calorie malnutrition; J96.90 Respiratory failure, unspecified, unspecified whether with hypoxia or hypercapnia; K65.9 Peritonitis, unspecified; A41.9 Sepsis, unspecified organism; K55.9 Vascular disorder of intestine, unspecified; G25.9 Extrapyramidal and movement disorder, unspecified; E87.6 Hypokalemia; Z90.710 Acquired absence of both cervix and uterus; Z90.49 Acquired absence of other specified parts of digestive tract; R19.7 Diarrhea, unspecified; I73.9 Peripheral vascular disease, unspecified; E87.8 Other disorders of electrolyte and fluid balance, not elsewhere classified; D69.6 Thrombocytopenia, unspecified; M19.90 Unspecified osteoarthritis, unspecified site; Z68.21 Body mass index [BMI] 21.0-21.9, adult; F17.210 Nicotine dependence, cigarettes, uncomplicated; I12.9 Hypertensive chronic kidney disease with stage 1 through stage 4 chronic kidney disease, or unspecified chronic kidney disease; N18.3 Chronic kidney disease, stage 3 (moderate); R41.0 Disorientation, unspecified
CPT/HCPCS: 36415; 70551; 71045; 74018; 74177; 80048; 80053; 81001; 82805; 82948; 83605; 83690; 83735; 83880; 84100; 84132; 84484; 85025; 86850; 86900; 87040; 87071; 87075; 87186; 87205; 87493; 88307; 93005; 93306; 94002; 94003; 96361; 96366; 96374; 97139; 99284; J0360; J0692; J1100; J1170; J1200; J1817; J1885; J1956; J2001; J2060; J2248; J2270; J2370; J2405; J2765; J3010; J3370; J3475; J3480; J3486; J7030; J7040; J7050; J7070; J7799; Q9967

== ENCOUNTER 2020-12-25 14:40 | Emergency (ER) | payer MEDICARE, OTHER ==
[~2020-12-25] VITALS: Ht 162.6 cm; Wt 47.2 kg
[~2020-12-25 14:40] MED LIST changes: +ASPIRIN EC81 MG PO; +ATORVASTATIN CA20 MG PO; +DICLOFENAC SODI75 MG PO; +DICYCLOMINE HCL20 MG PO; +OLMESARTAN-HCTZ PO
[2020-12-25] MEDS ORDERED: OMEPRAZOLE20 MG (15:40)
[2020-12-25] MEDS ORDERED: CARAFATE1 GM PO (15:40)
[2020-12-25] MEDS ORDERED: BENICAR HCT 401 EAC1 (15:40)
[2020-12-25] MEDS ORDERED: CARVEDILOL3.125 MG PO (15:40)
[2020-12-25] MEDS ORDERED: CEFTRIAXONE SOD 1 GM/50 ML BAG IV ONE (15:45)
[2020-12-25] MEDS ORDERED: CEFTRIAXONE SOD 1 GM 50 ML IV ONE (15:52)
[2020-12-25] MEDS ORDERED: LORAZEPAM INJ 2 MG/ML VIAL ONE (16:12)
[2020-12-25] MEDS ORDERED: LORAZEPAM INJ 2 MG/ML VIAL IV ONE (16:15)
[2020-12-25 19:34] VITALS: BP 166/79
== END 2020-12-25 20:15 | disposition other institution (70) ==
LOC: FSED 15:43
DX: R41.82 Altered mental status, unspecified (principal); N39.0 Urinary tract infection, site not specified; I10 Essential (primary) hypertension; I25.10 Atherosclerotic heart disease of native coronary artery without angina pectoris; E78.5 Hyperlipidemia, unspecified; N18.9 Chronic kidney disease, unspecified; G10 Huntington's disease; F17.210 Nicotine dependence, cigarettes, uncomplicated
CPT/HCPCS: 70450; 71045; 80048; 80076; 81003; 84484; 85025; 87086; 96374; 99284; J0696; J2060; U0002; 87186